=== PATIENT | female | born 1980 | race Caucasian/White ===

== ENCOUNTER 2020-04-22 09:31 | Outpatient (CLI) | payer OTHER, SELFPAY ==
--- NOTE | ~2020-04-22 | XR_ITS ---
EXAMINATION: XR foot RT min 3V DATE: 04/22/2020 09:44 INDICATION: Pain at the arch of the right foot. TECHNIQUE: 4 views of right foot were obtained. COMPARISON: None. FINDINGS: Bone alignment is normal. No fracture. There is mild osteoarthritis of first metatarsophala ngeal joint and some of the midfoot joints. There are enthesophytes at the posterior and plantar aspe cts of calcaneal tuberosity. IMPRESSION: 1. Mild polyarticular osteoarthritis. Reviewed, dictated and finalized at location A.
== END 2020-04-22 09:32 | disposition home or self-care (01) ==
PROVIDERS: PCP Internal Medicine; Visit Provider Clinical Nurse Specialist
DX: M79.673 Pain in unspecified foot (principal); M19.071 Primary osteoarthritis, right ankle and foot
CPT/HCPCS: 73630

== ENCOUNTER 2020-09-09 15:54 | Outpatient (CLI) | payer OTHER, SELFPAY ==
--- NOTE | ~2020-09-09 | US_ITS ---
EXAMINATION: US venous doppler [facility] DATE: 09/09/2020 16:43 INDICATION: Left lower limb swelling. TECHNIQUE: Grayscale ultrasound images without and with compression and Doppler ultrasound images of the left lower extremity veins were obtained. COMPARISON: None. FINDINGS: The visualized portions of left common femoral vein, profunda (deep) femoral vein, femoral vein, popl iteal vein, posterior tibial veins, and greater saphenous vein outflow are patent. IMPRESSION: 1. No deep venous thrombosis. Reviewed, dictated and finalized at location A.
== END 2020-09-09 15:55 | disposition home or self-care (01) ==
PROVIDERS: PCP Internal Medicine; Visit Provider Nurse Practitioner
DX: M79.89 Other specified soft tissue disorders (principal)
CPT/HCPCS: 93971

== ENCOUNTER 2020-10-30 10:03 | Outpatient (CLI) | payer OTHER, SELFPAY ==
--- NOTE | ~2020-10-30 | XR_ITS ---
XR knee RT 3V DATE: 10/30/2020 10:28 INDICATION: Right knee pain. No known injury. TECHNIQUE: 3 views COMPARISON: None FINDINGS: There is severe tricompartment osteoarthritis, involving particularly the medial and patell ofemoral compartments, with virtual obliteration of medial compartment joint space. There is prominen t periarticular spurring at all 3 compartments. There is mild lateral subluxation at the femoral tibi al joint. No fracture, dislocation, periosteal reaction or bone destruction, radiopaque intra-articular loose b gayatri or chondrocalcinosis is detected. IMPRESSION: Severe tricompartment osteoarthritis Reviewed, dictated and finalized at location B. PERSON
== END 2020-10-30 10:04 | disposition home or self-care (01) ==
PROVIDERS: PCP Internal Medicine; Visit Provider Nurse Practitioner
DX: M17.11 Unilateral primary osteoarthritis, right knee (principal)
CPT/HCPCS: 73562

== ENCOUNTER 2021-02-23 08:27 | Outpatient (CLI) | payer OTHER, SELFPAY ==
--- NOTE | ~2021-02-23 | US_ITS ---
EXAMINATION: US soft tissue abdomen EXAM DATE: 02/23/2021 09:04 INDICATION: R19.00 - Intra-abdominal and pelvic swelling, mass and lump, unspecified site. Patient no ticed for one month. Hernia on prior CT. TECHNIQUE: Multiple grayscale and Doppler images of the symptomatic abdominal soft tissue area of rodo harris were obtained (by a technologist who performed the scan) and subsequently reviewed. Correlation is made to CT abdomen 11/13/2018. FINDINGS: Prior CT from 2008 demonstrates a small umbilical fat-containing hernia. Scanning in the umbilicus de monstrates a defect in the abdominal wall measuring about 1.5 cm, with larger amount of intra-abdomin al fat herniating through, probably measuring about 3 cm in diameter. This may be have demonstrated m ild increase in size compared to CT scan in 2019, but this is not a direct comparison. IMPRESSION: Small to moderate-sized umbilical fat-containing hernia. Reviewed, dictated and finalized at location A.
[2021-02-23 09:20] LABS: Basophils Percent Auto 0.4 % (0.2-1.2); Eosinophils Absolute Auto 0.3 K/mm3 (0-0.3); Eosinophils Percent Auto 2.6 % (0-4.4); Hematocrit 39.9 % (37.0-47.0); Hemoglobin 12.8 g/dL (12.0-15.0); Immature Granulocyte Absolute 0.05 K/mm3 (0.00-0.031); Immature Granulocyte Percent A 0.5 % (0-0.5); Lymphocytes Absolute Auto 2.78 K/mm3 (0.9-3.2); Lymphocytes Percent Auto 25.9 % (18.3-44.2); Mean Corpuscular HGB Conc 32.1 g/dl (32-36); Mean Corpuscular Hemoglobin 29.6 pg (26-34); Mean Corpuscular Volume 92.4 fl (80-100); Mean Platelet Volume 12.2 fl (7.4-10.4); Monocytes Absolute Auto 0.6 K/mm3 (0.1-0.6); Monocytes Percent Auto 5.7 % (2.6-8.5); Neutrophils Percent Auto 64.9 % (45.5-73.1); Platelet Count Result 248 k/mm3 (150-375); Red Blood Count 4.32 M/mm3 (4.2-5.4); Red Cell Distribution Width 13.4 % (11.5-14.5); White Blood Count 10.7 K/mm3 (4.5-10.0)
[2021-02-23 09:29] LABS: Hemoglobin A1C 6.8 % (<5.7)
[2021-02-23 09:34] LABS: Alanine Aminotransferase 19 U/L (4-35); Albumin Level 4.4 g/dL (3.5-5.1); Alkaline Phosphatase 94 U/L (38-126); Anion Gap 4 mmol/L (8-16); Aspartate Amino Transferase 22 U/L (14-36); Bilirubin,Total 0.6 mg/dL (0.2-1.3); Blood Urea Nitrogen 14 mg/dL (7-17); Calcium 9.3 mg/dL (8.4-10.2); Carbon Dioxide 33 mmol/L (22-30); Chloride 103 mmol/L (98-107); Cholesterol 162 mg/dL (0-200); Estimated Glomerular Filt Rate > 60; Glucose 123 mg/dL (65-105); HDL Direct 53 mg/dL; Potassium 4.5 mmol/L (3.4-5.0); Sodium 140 mmol/L (137-145); Triglycerides 88 mg/dL (<150)
[2021-02-23 09:45] LABS: LDL Cholesterol Direct 86 mg/dL
[2021-02-23 10:06] LABS: Vitamin D 25 Hydroxy 21.8 ng/mL
== END 2021-02-23 08:28 | disposition home or self-care (01) ==
LOC: ANHIMG 08:29
PROVIDERS: Nurse Practitioner; PCP Internal Medicine; Visit Provider Nurse Practitioner
DX: R41.3 Other amnesia (principal); E11.9 Type 2 diabetes mellitus without complications; R19.00 Intra-abdominal and pelvic swelling, mass and lump, unspecified site; K42.9 Umbilical hernia without obstruction or gangrene
CPT/HCPCS: 36415; 76705; 80053; 80061; 82306; 82607; 83036; 84443; 85025

== ENCOUNTER 2021-03-04 12:25 | Outpatient (RCR) | payer OTHER, SELFPAY ==
[2021-03-04 12:39] VITALS: BMI 75.7
[2021-03-04 12:42] VITALS: BMI 75.7
== END 2021-05-26 14:56 | disposition home or self-care (01) ==
LOC: ANHDMC 12:25
PROVIDERS: PCP Internal Medicine; Referring Provider Nurse Practitioner; Visit Provider Nurse Practitioner
DX: E11.9 Type 2 diabetes mellitus without complications (principal); Z71.3 Dietary counseling and surveillance
CPT/HCPCS: 97802

== ENCOUNTER 2021-03-10 13:14 | Outpatient (CLI) | payer OTHER, SELFPAY ==
--- NOTE | 2021-03-10 13:47 | ECHO_ITS ---
Patient Info Name: Jolene Garcia Age: 40 years : 1980 Gender: Female Ht: 62 in Wt: 414 lbs BSA: 3.01 m2 HR: 81 bpm BP: 148 / 99 mmHg Heart Rhythm: Sinus Rhythm Technical Quality: Good Exam Date: 03/10/2021 1:56 PM Exam Location: [facility] Patient Status: Outpatient Admit Date: 03/10/2021 Staff Ordering Physician: Monse Sanchez NP Equipment Maintenance Superintendent: Yani Martin RDCS Attending Provider: Monse Sanchez NP Referring Physician: Laura FUENTES; Exam Type: CA echo doppler color flow Study Info Indications R60.9 - Edema, unspecified Complete two-dimensional, color flow and Doppler transthoracic echocardiogram is performed. Summary 1. Complete two-dimensional, color flow and Doppler transthoracic echocardiogram is performed. 2. Left ventricular systolic function is normal, estimated at 65-70%. 3. There is mildly increased left ventricular wall thickness. 4. The left ventricular diastolic function is normal. 5. Right atrial chamber dimension is mildly enlarged. 6. There is trace tricuspid valve regurgitation. 7. Mild pulmonary hypertension, estimated pulmonary arterial systolic pressure is 41 mmHg. 8. Normal inferior vena cava with >50% collapse upon inspiration consistent with normal right atrial pressure, 5 mmHg. Left Ventricle Left ventricular chamber dimension is normal. Left ventricular systolic function is normal, estimated at 65-70%. There is mildly increased left ventricular wall thickness. The left ventricular diastolic function is normal. Right Ventricle Right ventricular chamber dimension is normal. Right ventricular systolic function is normal. Left Atria Left atrial chamber dimension is normal. Right Atria Right atrial chamber dimension is mildly enlarged. Aortic Valve The aortic valve is not well visualized. There is no aortic valve stenosis. There is no aortic valve regurgitation. Pulmonic Valve The pulmonic valve is not well visualized. Mitral Valve The mitral valve has normal leaflets. There is trace mitral valve regurgitation. Tricuspid Valve The tricuspid valve leaflets are normal. There is trace tricuspid valve regurgitation. Mild pulmonary hypertension, estimated pulmonary arterial systolic pressure is 41 mmHg. Pericardium/Pleural The pericardium appears normal. There is trivial pericardial effusion. Inferior Vena Cava Normal inferior vena cava with >50% collapse upon inspiration consistent with normal right atrial pressure, 5 mmHg. Aorta The aortic root size at the sinus of Valsalva is normal. Left Ventricular Outflow Tract Name Value Normal LVOT 2D LVOT Diameter 2.0 cm LVOT Doppler LVOT Peak Gradient 8 mmHg LVOT Mean Gradient 5 mmHg LVOT VTI 28 cm LVOT VTI/AV VTI Ratio 0.8 LVOT Stroke Volume 86 ml LVOT CO 20.7 l/min LVOT CI 6.9 l/min/m2 Pulmonic Valve
== END 2021-03-10 13:15 | disposition home or self-care (01) ==
LOC: ANHCARD 13:15
PROVIDERS: PCP Internal Medicine; Visit Provider Nurse Practitioner
DX: R60.9 Edema, unspecified (principal)
CPT/HCPCS: 93306

== ENCOUNTER → 2021-03-26 01:06 | Outpatient (CLI) | payer OTHER, SELFPAY ==
[2021-03-26 19:36] LABS: SARS-CoV-2 RNA PCR Negative
== END ==
PROVIDERS: PCP Internal Medicine; Visit Provider Surgery
DX: Z20.822 Contact with and (suspected) exposure to COVID-19 (principal)
CPT/HCPCS: C9803; U0003; U0005

== ENCOUNTER 2021-03-26 08:43 | Outpatient (CLI) | payer OTHER, SELFPAY ==
--- NOTE | 2021-03-26 10:30 | ECG_ITS ---
Measurements Intervals [place] Rate: 78 P: 44 WI: 185 QRS: 31 QRSD: 100 T: -7 QT: 392 QTc: 447 Interpretive Statements SINUS RHYTHM NONSPECIFIC T-WAVE ABNORMALITY- INF/LAT LEADS BASELINE ARTIFACT- II, III, AVR, AVF BORDERLINE ECG Electronically Signed On 03-26-2021 13:54:20 CDT by Ismael Valentin D.O.
== END 2021-03-26 08:44 | disposition home or self-care (01) ==
LOC: ANHSURGERY 08:46
PROVIDERS: PCP Internal Medicine; Visit Provider Surgery
DX: K42.0 Umbilical hernia with obstruction, without gangrene (principal); E11.9 Type 2 diabetes mellitus without complications; Z01.818 Encounter for other preprocedural examination; R94.31 Abnormal electrocardiogram [ECG] [EKG]
CPT/HCPCS: 36415; 86850; 86900; 86901; 93005; C9803; U0003; U0005

== ENCOUNTER 2021-03-29 02:18 | Day surgery (SDC) | payer OTHER, SELFPAY ==
[2021-03-19 08:33] VITALS: BMI 57.6
[2021-03-29] VITALS (13 sets, daily range): BP systolic 139–167; BP diastolic 74–99; PULSE 69–90; RESP 10–24; TEMP 36.2–36.9; O2SAT 93–100
--- NOTE | 2021-03-29 06:40 | WPDANESEPPF ---
Anes - Initial Pre Proc Eval Procedure: Operation Date: 03/29/21 07:30 Proposed Procedures p Robotic Assisted Laparoscopic Incarcerated Umbilical Hernia Repair with Mesh - Lauren Carter MD Date/Time: 03/29/21 06:40 Surgeon: Lauren Carter MD Pre Op Diagnosis: incarcerated umbilical hernia Patient Data Age: 40 Gender: F Height: 1.57 m Weight: 143 kg Allergies Allergy/AdvReac Type Severity Reaction Status Date / Time latex Allergy Unknown Rash Verified 03/29/21 06:07 metformin Allergy Unknown Rash Verified 03/29/21 06:07 simvastatin Allergy Unknown Cramping Verified 03/29/21 06:07 of the Muscles Home Medications Medication Instructions Recorded Confirmed Type aspirin 81 mg tablet,delayed 81 mg PO DAILY 09/26/19 03/19/21 History release blood sugar diagnostic #10 each 09/26/19 03/19/21 History blood-glucose meter #1 each 09/26/19 03/19/21 History citalopram 20 mg tablet 20 mg PO DAILY 09/26/19 03/19/21 History lancets #50 each 09/26/19 03/19/21 History trazodone 150 mg tablet 150 mg PO HS tablet 09/26/19 03/19/21 History ziprasidone HCl 80 mg capsule 80 mg PO HS 09/26/19 03/19/21 History gabapentin 100 mg capsule 100 mg PO BID #180 cap 10/13/20 03/19/21 Rx glipizide 5 mg tablet 5 mg PO DAILY #90 tablet 02/01/21 03/19/21 Rx lisinopril 5 mg tablet 5 mg PO DAILY #90 tablet 02/24/21 03/19/21 Rx multivitamin 1 tablet PO DAILY 03/05/21 03/19/21 History Patient hx anesthesia problems: none Family hx anesthesia problems: none PMFSH Past Medical History Medical History Anxiety Arthritis Asthma Bipolar 1 disorder Cellulitis Cervicalgia Chronic headaches Chronic midline low back pain without sciatica Chronic pain of right knee Depression Diabetes Dizziness Excessive hunger Excessive thirst Heartburn Herpes Light headedness Memory loss Migraine KOBI (obstructive sleep apnea) Osteoporosis Polycystic ovarian syndrome Right wrist pain Sleep disorder SOB (shortness of breath) Type 2 diabetes mellitus Wears glasses Weight gain Surgical History Surgical History H/O tubal ligation BL History of placement of ear tubes Family History Family History Mother Depression Hypertension Sibling Breast cancer Grandparent Lung cancer Other Arthritis Asthma Diabetes mellitus Neuropathy Social History Social History Smoking packs per day: 1 Smoking cigarettes per day: 20.0 Years smoked: 2 Smoking pack-years: 2.00 Smoking status: Former smoker Tobacco type: cigarettes Smoking end date: 01/31/18 Alcohol intake: never Substance use: never Substance use type: does not use Living arrangements: with family Additional occupation/education comments: Disabled Spiritual care concerns: No Anes - Eval Final PreProcedure Day of Procedure 03/29/21 06:40 Patient weight: super morbidly obese Heart: regular rate and rhythm Lungs: clear to auscultation and normal air movement Airway: Mallampati scale class II Neurological: alert and oriented Last oral intake: >/= 8 hours ASA classification: III Emergent: no Anesthetic plan: proceed Anesthesia type and monitoring: general ETT and standard monitoring Informed Consent: The patient's anesthetic plan and its attendant risks and benefits were discussed with the patient/family/POA. Questions were solicited and answers provided to the satisfaction of the patient/family/POA.
[2021-03-29] MEDS: LACTATED RINGERS 1,000 ML 30 ML IV CONT ×2 (06:50→09:29)
[2021-03-29] MEDS: ACETAMINOPHEN 500 MG TABLET 1000 MG PO (06:54)
[2021-03-29] MEDS: KETOROLAC 15 MG/ML VIAL (*BKC) IV PUSH (06:55)
[2021-03-29 07:01] LABS: Glucose Point of Care 145 (65-105)
--- NOTE | 2021-03-29 07:26 | WPDHPUPDATE1 ---
History and Physical Update Update Date/Time: 03/29/21 07:26 History and Physical has been reviewed, including an updated exam of the patient. There are NO changes in the patient's condition. Risks, benefits, and alternatives have been discussed and questions answered. Patient agrees to proceed with procedure. Plan for robotic assisted repair with mesh.
[2021-03-29] MEDS: BUPIVACAINE/EPINEPHRINE 0.5% 30 ML VIAL INFILTRATE (07:33)
[2021-03-29] MEDS: ceFAZolin 3 GM/D5W 100 ML 100 ML IVPB (07:33)
[2021-03-29] MEDS: ENOXAPARIN 40 MG/0.4 ML SYRINGE SUB-Q (08:09)
--- NOTE | 2021-03-29 08:32 | SUR.OPER ---
DOCTOR HAMLIN AWARE AND ASSESSED LEFT LOWER LEG IN PRE OP/NO SCD TO FIT LEFT LOWER LEG. LEFT LOWER LEG DOUBLE THE SIZE OF RIGHT, SKIN TAUGHT,PEDAL PULSE +1. RIGHT LOWER LEG ALSO WITH TAUGHT SKIN, LOWER TINT PINKNESS,PEDAL PULSE +1. BILATERL LOWER LEGS WARM TO TOUCH. DR HAMLIN STATED PATIENT SAID THIS IS HER NORMAL. DR HAMLIN NOTIFIED ON ARRIVAL TO OR THAT NO SCD'S TO FIT/ORDER RECEIVED FOR LOVENOX 40MG SQ ONE TIME DOSE NOW. SEE MAR.
--- NOTE | 2021-03-29 08:49 | SUR.OPER ---
UMBILICAL MESH SYMBOTEX 1510, EXP 2025-10-12, LOT [id number]
--- NOTE | 2021-03-29 09:32 | SUR.OPER ---
POST OP ASSESSMENT OF LOWER LEGS UNCHANGED/AND INCLUDED IN REPORT TO HABITAT CONSERVATION PLANNERSTEPHENIE VASQUEZ.
--- NOTE | 2021-03-29 09:39 | P.OP_ITS ---
Procedure Note - Detailed Date of procedure: 03/29/21 Pre-op diagnosis: incarcerated umbilical hernia incarcerated periumbilical ventral hernia Post-op diagnosis: same Procedure performed: robotic assisted repair of incarcerated periumbilical ventral hernia with 15 x 10 cm symbotex mesh in underlay position Description of procedure: The patient was taken the operating room placed in the supine position. After adequate induction of general anesthesia, the patient was prepped and draped in normal sterile fashion. A time-out was then done to verify the patient's identity as well as the procedure being performed. I began by making a 5 mm incision in the left upper quadrant. Through this, a Veress needle was placed into the peritoneal cavity and CO2 gas was insufflated. After adequate pneumoperitoneum was achieved, a 5 mm trocar was placed through this incision. I then placed the laparoscope through this trocar site and under direct visualization I placed a 8 mm port in the left mid abdomen as well as an additional 8 mm port in the left lower abdomen. I then moved the camera to the lower port and replaced the 5 mm port with a 12 mm airport. The robot was then docked to the 3 port sites. I then went to the robotic console. I began by identifying the hernia. A moderate-sized incarcerated hernia was noted in the periumbilical region. Using graspers, I was able to reduce this hernia. The he rnia was noted to just contain preperitoneal fat and omentum. Once reduced, I also reduced and dissected out the hernia sac. I then closed the approximately 3 cm defect with 0 strata fix suture. I then placed a 15 x 10 cm symbotex mesh into the abdominal cavity. The Vicryl stitch was placed in the middle of the mesh and brought up centering the mesh over the defect. Once this was done, I used 2 0 V lock suture x 2 to circumferentially suture the mesh to the abdominal. Once the mesh was completely sutured in, I was happy with our tension-free repair. The mesh was noted to have good overlap of the defect. At this point, the robot was undocked and all ports were removed. I then closed the 12 mm port site with an 0 Vicryl jlhmyy-do-gebal suture at the fascial level. All port sites were then closed with 4 O Monocryl subcuticular suture. The patient tolerated the procedure well, is extubated in the operating room postoperative, OB transferred to the recovery room in stable condition. Anesthesia: GETA Surgeon: Lauren Carter MD Estimated blood loss (mL): 20 Drains: No Packing: No Pathology: none sent Complications: No immediate complications Condition: stable Disposition: PACU Findings: incarcerated periumbilical ventral hernia containing fat and omentum
[2021-03-29] MEDS: fentaNYL CITRATE INJ (*CRX) 100 MCG/2 ML VIAL 25 MCG IV PUSH ×4 (09:54→10:09)
--- NOTE | 2021-03-29 09:57 | SUR.PHASEI ---
Patient's left leg is larger than her right and warm to the touch. Lovenox was given in the operating room. Bilateral pedal pulses are a 1+.
--- NOTE | 2021-03-29 09:59 | SUR.PHASEI ---
O2 was removed at 0957.
[2021-03-29] MEDS: HYDROmorphone HCL INJ (*CRX) 1 MG/ML SYR 0.5 MG IV PUSH ×3 (10:15→10:31)
[2021-03-29] MEDS: oxyCODONE HCL (*CRX) 5 MG TAB IR PO (11:16)
[2021-03-30 07:15] LABS: Glucose Point of Care 145 (65-105)
== END 2021-03-29 12:45 | disposition home or self-care (01) ==
PROVIDERS: PCP Internal Medicine; Visit Provider Surgery
PROC: (CPT 49653; principal; 2021-03-29 07:30)
DX: K43.6 Other and unspecified ventral hernia with obstruction, without gangrene (principal); E11.9 Type 2 diabetes mellitus without complications; E28.2 Polycystic ovarian syndrome; F31.9 Bipolar disorder, unspecified; F41.9 Anxiety disorder, unspecified; G47.33 Obstructive sleep apnea (adult) (pediatric); Z87.891 Personal history of nicotine dependence; E66.01 Morbid (severe) obesity due to excess calories; Z68.45 Body mass index [BMI] 70 or greater, adult; Z79.84 Long term (current) use of oral hypoglycemic drugs; Z79.82 Long term (current) use of aspirin
CPT/HCPCS: 49653; S2900; 82948; A9270; C1781; J0330; J0690; J1100; J1170; J1650; J1885; J2250; J2405; J2704; J3010; J7030; J7120

== ENCOUNTER 2021-09-09 09:33 | Emergency (ER) | payer OTHER, SELFPAY ==
--- NOTE | ~2021-09-09 | XR_ITS ---
EXAMINATION: XR chest 2V DATE: 09/09/2021 10:31 INDICATION: Cough TECHNIQUE: PA and lateral views of the chest are obtained. COMPARISON: 05/18/2017 FINDINGS: The lungs are free of acute opacities. There is no pleural effusion or pneumothorax. The ca rdiomediastinal silhouette is normal. There is moderate thoracic spondylosis. IMPRESSION: 1. No acute cardiopulmonary abnormality. Reviewed, dictated and finalized at location A.
[2021-09-09 09:40] VITALS: BP 130/77; PULSE 94; RESP 16; TEMP 36.7; O2SAT 99
--- NOTE | 2021-09-09 11:25 | ED.GENADULT ---
HPI - General Adult General Chief complaint: Upper Respiratory Infection Stated complaint: COUGH, URI [id number] Time Seen by Provider: 09/09/21 11:11 Source: patient Mode of arrival: ambulatory Limitations: no limitations History of Present Illness HPI narrative: Patient 41-year-old female with history of asthma and sleep apnea who presents with 1 weeks of cold-like symptoms. Patient reports cough, congestion. She reports that she was seen at the urgent care when her symptoms first started and tested for Covid and the test was negative. Patient reports that sometimes she coughs hard and it causes her bladder to leak for her to spit up. She denies any abdominal pain, chest pain or shortness of breath. Patient denies any wheezing or having to use her rescue inhaler more frequently. Patient was prescribed cough syrup with codeine at the urgent care however she states she still has some coughing and soreness of her ribs from coughing. Patient denies any fevers, chills, shortness of breath, inability to eat or drink. Related Data Home Medications Medication Instructions Recorded Confirmed aspirin 81 mg tablet,delayed 81 mg PO DAILY 09/26/19 08/02/21 release blood sugar diagnostic #10 each 09/26/19 08/02/21 blood-glucose meter #1 each 09/26/19 08/02/21 citalopram 20 mg tablet 20 mg PO DAILY 09/26/19 08/02/21 lancets #50 each 09/26/19 08/02/21 trazodone 150 mg tablet 150 mg PO HS tablet 09/26/19 08/02/21 ziprasidone HCl 80 mg capsule 80 mg PO HS 09/26/19 08/02/21 multivitamin 1 tablet PO DAILY 03/05/21 08/02/21 Allergies Allergy/AdvReac Type Severity Reaction Status Date / Time latex Allergy Unknown Rash Verified 09/09/21 11:23 metformin Allergy Unknown Rash Verified 09/09/21 11:23 simvastatin Allergy Unknown Cramping Verified 09/09/21 11:23 of the Muscles Review of Systems Review of Systems: CONSTITUTIONAL: Denies fever, chills, or sweats. EYES: Denies visual changes, redness, or discharge. ENT: Reports rhinorrhea, congestion denies sore throat or otalgia. CARDIOVASCULAR: Denies chest pain, palpitations, or edema. RESPIRATORY: Reports cough denies dyspnea. GASTROINTESTINAL: Denies abdominal pain, nausea, vomiting, or diarrhea. GENITOURINARY: Denies dysuria or hematuria. SKIN: Denies rash or itching. MUSCULOSKELETAL: Denies back pain, joint pain, or myalgia. NEUROLOGIC: Denies headache, numbness, dizziness, or weakness. PSYCHIATRIC: Denies anxiety or depression. [facility] Past Medical History Medical History Anxiety Arthritis Asthma Bipolar 1 disorder Cellulitis Cervicalgia Chronic headaches Chronic midline low back pain without sciatica Chronic pain of right knee Depression Diabetes Dizziness Excessive hunger Excessive thirst Heartburn Herpes Light headedness Memory loss Migraine KOBI (obstructive sleep apnea) Osteoporosis Polycystic ovarian syndrome Right wrist pain Sleep disorder SOB (shortness of breath) Type 2 diabetes mellitus Wears glasses Weight gain Surgical History Surgical History H/O tubal ligation BL H/O ventral hernia repair 03/29/21 robotic assisted repair of incarcerated periumbilical ventral hernia with 15 x 10 cm symbotex mesh in underlay position History of placement of ear tubes Family History Family History Mother Depression Hypertension Sibling Breast cancer Grandparent Lung cancer Other Arthritis Asthma Diabetes mellitus Neuropathy Social History Social History Smoking packs per day: 1 Smoking cigarettes per day: 20.0 Years smoked: 2 Smoking pack-years: 2.00 Smoking status: Former smoker Tobacco type: cigarettes Smoking end date: 01/31/18 Alcohol intake: never Substance use: never Substance use type: does not use Additio
[2021-09-09 11:26] VITALS: PULSE 95; RESP 18; TEMP 36.9; O2SAT 97
[2021-09-09 11:27] VITALS: BP 120/98
[2021-09-09 11:28] VITALS: BP 119/75
== END 2021-09-09 11:45 | disposition home or self-care (01) ==
LOC: ANHED 11:33
PROVIDERS: Emergency Provider Emergency Medicine; PCP Internal Medicine
DX: B34.9 Viral infection, unspecified (principal); M19.90 Unspecified osteoarthritis, unspecified site; E11.9 Type 2 diabetes mellitus without complications; G47.33 Obstructive sleep apnea (adult) (pediatric); E28.2 Polycystic ovarian syndrome; G89.29 Other chronic pain; M54.50 Low back pain, unspecified; M25.561 Pain in right knee; F31.9 Bipolar disorder, unspecified; F41.9 Anxiety disorder, unspecified; Z87.891 Personal history of nicotine dependence; Z79.82 Long term (current) use of aspirin; Z79.84 Long term (current) use of oral hypoglycemic drugs
CPT/HCPCS: 71046; 99283

== ENCOUNTER 2021-10-14 10:32 | Outpatient (RCR) | payer OTHER, SELFPAY | END 2022-01-03 09:31 | disposition home or self-care (01) | LOC: ANHDMC 10:32 | PROVIDERS: PCP Internal Medicine; Referring Provider Nurse Practitioner; Visit Provider Nurse Practitioner | DX: E11.9 Type 2 diabetes mellitus without complications (principal) | CPT/HCPCS: 99199 ==

== ENCOUNTER 2021-12-03 08:07 | Outpatient (CLI) | payer OTHER, SELFPAY ==
--- NOTE | 2021-12-19 21:20 | WPDSLEEPSTUD ---
Sleep Study Date of Study: 12/03/21 <Teresa Ramos DO - Last Filed: 12/20/21 16:28> Ordering Provider: Teresa Ramos DO <Teresa Ramos DO - Last Filed: 12/20/21 16:28> Interpreting Physician: Teresa Ramos DO <Teresa Ramos DO - Last Filed: 12/20/21 16:28> Sleep Study Type: Split Polysomnogram <Teresa Ramos DO - Last Filed: 12/20/21 16:28> Height: 1.57 m <Teresa Ramos DO - Last Filed: 12/20/21 16:28> Weight: 173.272 kg <Teresa Ramos DO - Last Filed: 12/20/21 16:28> Body Mass Index: 69.8 <Teresa Ramos DO - Last Filed: 12/20/21 16:28> Neck Circumference (inches): 19.5 <Teresa Ramos DO - Last Filed: 12/20/21 16:28> [place]: 12 <Teresa Ramos DO - Last Filed: 12/20/21 16:28> Reason for Sleep Study Snoring, witnessed apneas, previously diagnosed KOBI on Split Study on 07/09/2019. Her echo on 03/10/2021 showed mild pulmonary hypertension. <Teresa Ramos DO - Last Filed: 12/20/21 16:28> Sleep History The patient is a 41 y/o female with anxiety, depression, bipolar disorder, Type 2 diabetes, migraine, mild pulmonary hypertension, morbid obesity, tobacco use disorder and previously diagnosed KOBI that had a Split Night study ordered by her PCP. The patient had a Split Study in June 2019 that showed an AHI of 11.3 in the diagnostic portion of the study. She was prescribed BPAP 15/11 cm H2O. The patient had an echocardiogram on 03/10/2021 that showed mild pulmonary hypertension, likely due to untreated KOBI. The patient did not fill out the sleep intake history. <Teresa Ramos DO - Last Filed: 12/20/21 16:28> [facility] Past Medical History Medical History: Medical History (Updated 12/19/21 @ 22:03 by Teresa Ramos DO) Anxiety Arthritis Asthma Bipolar 1 disorder Cellulitis Cervicalgia Chronic headaches Chronic midline low back pain without sciatica Chronic pain of right knee Depression Diabetes Dizziness Excessive hunger Excessive thirst Heartburn Herpes Hyperlipidemia LDL goal <70 Light headedness Memory loss Migraine KOBI (obstructive sleep apnea) Osteoporosis Polycystic ovarian syndrome Pulmonary hypertension Right wrist pain Sleep disorder SOB (shortness of breath) Type 2 diabetes mellitus Wears glasses Weight gain <Teresa Ramos DO - Last Filed: 12/20/21 16:28> Surgical History Surgical History: Surgical History H/O tubal ligation BL H/O ventral hernia repair 03/29/21 robotic assisted repair of incarcerated periumbilical ventral hernia with 15 x 10 cm symbotex mesh in underlay position History of placement of ear tubes <Teresa Ramos DO - Last Filed: 12/20/21 16:28> Family History Family History: Family History Mother Depression Hypertension Sibling Breast cancer Grandparent Lung cancer Other Arthritis Asthma Diabetes mellitus Neuropathy <Teresa Ramos DO - Last Filed: 12/20/21 16:28> Social History Social History: Social History Smoking packs per day: 1 Smoking cigarettes per day: 20.0 Years smoked: 2 Smoking pack-years: 2.00 Smoking status: Former smoker Tobacco type: cigarettes Smoking end date: 01/31/18 Alcohol intake: never Substance use: never Substance use type: does not use Additional occupation/education comments: Disabled Spiritual care concerns: No <Teresa Ramos DO - Last Filed: 12/20/21 16:28> Medications Home Medications: Home Medications Medication Instructions Recorded Confirmed Type aspirin 81 mg tablet,delayed 81 mg PO DAILY 09/26/19 12/14/21 History release blood sugar diagnostic #10 each 09/26/19 12/14/21 History blood-glucose met
[2021-12-20 16:28] VITALS: BMI 69.8
== END 2021-12-04 07:42 | disposition home or self-care (01) ==
LOC: ANHCSM 08:08
PROVIDERS: PCP Internal Medicine; Visit Provider Family Medicine
DX: G47.33 Obstructive sleep apnea (adult) (pediatric) (principal)
CPT/HCPCS: 95811

== ENCOUNTER 2021-12-22 14:30 | Outpatient (RCR) | payer OTHER, SELFPAY ==
--- NOTE | 2021-12-09 16:10 | PTOPEVAL ---
Thank you for referring Jolene Garcia to [facility].? The patient is scheduled to be seen for therapy?1 x/week for 8 weeks. Please review, sign, date and return this plan of care ASDIA. I agree with and certify that the following plan of care is medically necessary. Referring Physician Date Attending Provider: Teresa Ramos, DO Status: Active Diagnosis lumbago with left sciatica, chronic pain Onset 7 yrs Additional Evaluation Detail She works at a [employer] location. Subjective Information She has been having back pain Query Text:As Reported By Patient/ for 7 yrs due to DDD. 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 Reports the pain increased with sleeping. No HEP or walking program. She applies heat/ice. Diagnostic Tests MRI For This Problem Yes: 2018 that showed mild disc bulges from T12-L5 Pain Assessment Self Report Pain Assessment Lower Back Reported Pain Level 7 Pain Description Sharp,Stabbing Pain Frequency Chronic,Continuous Lowest Pain Intensity 2 Greatest Pain Intensity 8 Pain Aggravating Factors ADL's,Bending,Exercise/ Activity,Lifting,Prolonged Position,Sitting,Supine, Walking,Weight Bearing/ Standing Cervical and Lumbar ROM Lumbar ROM Lumbar Flexion Active Mid Phelps:Hands to: Lateral Flexion mid thigh motion:Active Hands to: Lumbar Comments pain with trunk flex Lower Extremity Range of Motion General Lower Extremity Range of Motion Gross Lower Extremity Range of Motion LE motion limited by excessive Comments tissue Cervical and Lumbar Muscle Testing Lumbar Strength Upper Abdominal Strength 3-Fair- Upper Back Extension 3 Fair Lower Back Extension 3 Fair Lower Extremity Muscle Strength Testing Hip Strength Bilateral Hip Flexion Strength 3- Fair - Hip Extension Strength 3 Fair Hip Abduction Strength 3 Fair Hip Strength Comments full range bridge Knee Strength Bilateral Knee Flexion Strength 4- Good - Knee Extension Strength 4+ Good + Knee Strength Comments hamstring tested seated Muscle Length Testing Muscle Length Testing Piriformis w/Hip Neutral (R) WFL,(L) WFL Right Straight Leg Raise Muscle Length ( 70 degrees) Left Straight Leg Raise Muscle Le
--- NOTE | 2021-12-15 14:23 | PCPTNOTE ---
Patient called & cancelled scheduled appointment this date due to no transportation.
--- NOTE | 2021-12-29 14:51 | PCPTNOTE ---
Patient called & cancelled scheduled appointment this date due to not feeling well.
--- NOTE | 2022-01-05 14:51 | PCPTNOTE ---
Patient did not show up for scheduled appointment this date. Called & had to leave a message.
--- NOTE | 2022-01-11 14:44 | PCPTNOTE ---
Patient did not show up for scheduled appointment this date. Called and left message regarding no show visit. Informed her will DC chart by end of week if she does not call to reschedule.
--- NOTE | 2022-01-17 12:54 | PCPTNOTE ---
Admitting Provider: Attending Provider: Teresa Ramos DO Patient:Jolene Garcia Date of :1980 Physical Therapy Discharge Summary Patient has not returned for any further treatments since 12/22/2021, therefore she will be discharged at this time. Patient?s initial visit was on 12/09/2021 and she had a total of 2 visits with 4 no show/canceled visits. The goals have been not met due to limited attended visits. Thank you for referring this patient to [facility]. Please review, sign, date and return this discharge summary SADIA. I have been updated about the patient's current status and I agree with discharge from the above service at this time. Referring Physician Date
== END 2022-01-17 15:25 | disposition home or self-care (01) ==
LOC: ANHPT 14:30
PROVIDERS: PCP Internal Medicine; Visit Provider Family Medicine
DX: M54.42 Lumbago with sciatica, left side (principal); G89.29 Other chronic pain
CPT/HCPCS: 97110; 97162; 97530

== ENCOUNTER 2022-01-18 07:29 | Outpatient (CLI) | payer OTHER, SELFPAY ==
--- NOTE | ~2022-01-18 | MM_ITS ---
EXAMINATION: MM screening bj BI w jensen HISTORY: Screening TECHNIQUE: Craniocaudal and mediolateral oblique 3-D tomosynthesis images were obtained and synthetic 2-D images were generated. CAD analysis was submitted and interpreted. COMPARISON: No prior mammogram is available for comparison at this institution. BREAST PARENCHYMAL COMPOSITION: The breasts are almost entirely fatty. FINDINGS: There is no evidence of suspicious mass, calcification, or architectural distortion to sugg est malignancy in either breast. There has been no suspicious interval change. IMPRESSION: 1. No mammographic evidence of malignancy. 2. Recommend routine screening mammography in one year. BI-RADS Category 1: Negative Reviewed, dictated and finalized at location A. ER OPERATOR
== END 2022-01-18 07:30 | disposition home or self-care (01) ==
LOC: ANHIMG 07:30
PROVIDERS: PCP Internal Medicine; Visit Provider Nurse Practitioner Obstetrics & Gynecology
DX: Z12.31 Encounter for screening mammogram for malignant neoplasm of breast (principal)
CPT/HCPCS: 77063; 77067

== ENCOUNTER 2022-01-20 12:33 | Outpatient (CLI) | payer OTHER, SELFPAY ==
--- NOTE | ~2022-01-20 | US_ITS ---
EXAMINATION: US venous doppler [facility] DATE: 01/20/2022 13:06 INDICATION: Left lower limb pain and swelling. TECHNIQUE: Grayscale ultrasound images without and with compression and Doppler ultrasound images of the left lower extremity veins were obtained. COMPARISON: Ultrasound 09/09/2020 FINDINGS: The visualized portions of left common femoral vein, profunda (deep) femoral vein, femoral vein, popl iteal vein, peroneal veins, posterior tibial veins, and greater saphenous vein outflow are patent. IMPRESSION: 1. No deep venous thrombosis. Reviewed, dictated and finalized at location A. KER AND SEWER
== END 2022-01-20 12:34 | disposition home or self-care (01) ==
PROVIDERS: PCP Internal Medicine; Visit Provider Family Medicine
DX: M79.89 Other specified soft tissue disorders (principal); L53.9 Erythematous condition, unspecified
CPT/HCPCS: 93971

== ENCOUNTER 2022-07-23 11:16 | Emergency (ER) | payer OTHER, SELFPAY ==
--- NOTE | ~2022-07-23 | XR_ITS ---
XR knee LT 3V DATE: 07/23/2022 12:15 INDICATION: Fall. Left leg pain and swelling. TECHNIQUE: 3 views including cross table lateral COMPARISON: None FINDINGS: There is periarticular spurring at all 3 compartments and moderately severe narrowing at th e medial compartment. No fracture or dislocation or joint effusion. No periosteal reaction or bone destruction. IMPRESSION: Osteoarthritis Reviewed, dictated and finalized at location A. IMPRESSION: Osteoarthritis
--- NOTE | ~2022-07-23 | XR_ITS ---
XR hip LT min 2V DATE: 07/23/2022 12:15 INDICATION: Fall. Left leg pain, swelling. TECHNIQUE: AP and lateral views COMPARISON: None FINDINGS: IUD overlying pelvis. No fracture or dislocation, avascular necrosis or bone destruction of the left hip. The pubic symphysic and sacroiliac joints appear intact. Left hip joint space is intact. IMPRESSION: Negative left hip Reviewed, dictated and finalized at location A. IMPRESSION: Negative left hip
--- NOTE | 2022-07-23 11:19 | ED.LOWEXIN ---
HPI - Extremity Injury (Lower) General Chief Complaint: Extremity Injury, Lower Stated Complaint: L LEG/L ANKLE INJURY Time Seen by Provider: 07/23/22 11:32 Source: patient and RN notes reviewed Mode of arrival: ambulatory Limitations: no limitations History of Present Illness HPI Narrative: 41-year-old female presents with concern for left hip, knee, leg pain. She reports she fell yesterday causing pain in these areas. She reports pain worsens with weightbearing. She reports her lower leg is swollen. She denies ankle or foot pain. She reports she took Tylenol with no relief. She denies open skin, redness, warmth. She reports chronic intermittent bilateral lower leg swelling for which she has talked to her doctor about many times. MD complaint: leg injury Related Data Home Medications Medication Instructions Recorded Confirmed aspirin 81 mg tablet,delayed 81 mg PO DAILY 09/26/19 07/23/22 release (Adult Low Dose Aspirin) blood-glucose meter ([employer]IDxTouch #1 ea 09/26/19 07/23/22 UltraMini kit) citalopram 20 mg tablet (Celexa) 20 mg PO DAILY 09/26/19 07/23/22 trazodone 150 mg tablet 150 mg PO HS 09/26/19 07/23/22 ziprasidone HCl 80 mg capsule 80 mg PO HS 09/26/19 07/23/22 (Geodon) multivitamin 1 tablet PO DAILY 03/05/21 07/23/22 Allergies Allergy/AdvReac Type Severity Reaction Status Date / Time latex Allergy Unknown Rash Verified 07/23/22 11:28 metformin Allergy Unknown Rash Verified 07/23/22 11:28 simvastatin Allergy Unknown Cramping Verified 07/23/22 11:28 of the Muscles Review of Systems Review of Systems: CONSTITUTIONAL: Denies malaise, chills, sweats, or fever. SKIN: Denies rash or itching, open skin, laceration, abrasion, redness, warmth MUSCULOSKELETAL: Reports left hip, knee, leg pain and swelling NEUROLOGIC: Denies numbness, weakness All systems reviewed & are unremarkable except as noted in HPI and below PMFSH Past Medical History Medical History Anxiety Arthritis Asthma Bipolar 1 disorder Cellulitis Cervicalgia Chronic headaches Chronic midline low back pain without sciatica Chronic pain of right knee Depression Diabetes Dizziness Excessive hunger Excessive thirst Heartburn Herpes Hyperlipidemia LDL goal <70 Light headedness Memory loss Migraine KOBI (obstructive sleep apnea) Osteoporosis Polycystic ovarian syndrome Pulmonary hypertension Right wrist pain Sleep disorder SOB (shortness of breath) Type 2 diabetes mellitus Wears glasses Weight gain Surgical History Surgical History H/O tubal ligation BL H/O ventral hernia repair 03/29/21 robotic assisted repair of incarcerated periumbilical ventral hernia with 15 x 10 cm symbotex mesh in underlay position History of placement of ear tubes Family History Family History Mother Depression Hypertension Sibling Breast cancer Grandparent Lung cancer Other Arthritis Asthma Diabetes mellitus Neuropathy Social History Social History Smoking packs per day: 1 Smoking cigarettes per day: 20.0 Years smoked: 2 Smoking pack-years: 2.00 Smoking status: Former smoker Tobacco type: cigarettes Smoking end date: 01/31/18 Alcohol intake: never Substance use: never Substance use type: does not use Additional occupation/education comments: Disabled Spiritual care concerns: No Comments At time of signature, agree with nursing past medical, surgical, social and family history. There is no relevant family history pertinent to the presenting complaint Exam Narrative: GENERAL: Well-appearing, well-nourished, and in no acute distress. HEAD: Normocephalic EYES: PERRLA, sclera clear ENT: Nares clear. Mucous membranes moist. NECK: Supple. CHEST: No respiratory distress. Speaks in fu
[2022-07-23 12:38] VITALS: BP 147/78; PULSE 96; RESP 16; TEMP 37.1; O2SAT 100
== END 2022-07-23 12:41 | disposition home or self-care (01) ==
PROVIDERS: Emergency Provider Nurse Practitioner
DX: M17.12 Unilateral primary osteoarthritis, left knee (principal); M25.552 Pain in left hip; Z79.82 Long term (current) use of aspirin; F31.9 Bipolar disorder, unspecified; E11.9 Type 2 diabetes mellitus without complications; E78.5 Hyperlipidemia, unspecified; G47.33 Obstructive sleep apnea (adult) (pediatric); Z87.891 Personal history of nicotine dependence
CPT/HCPCS: 73502; 73562; 99213; 99214; G0463

== ENCOUNTER 2022-08-16 09:17 | Outpatient (CLI) | payer OTHER, SELFPAY ==
[2022-08-16 18:42] LABS: Cholesterol 162 mg/dL (0-200); HDL Direct 52 mg/dL; Triglycerides 53 mg/dL (<150)
[2022-08-16 18:46] LABS: Hemoglobin A1C 6.1 % (<5.7)
[2022-08-16 18:53] LABS: LDL Cholesterol Direct 69 mg/dL
== END 2022-08-16 09:18 | disposition home or self-care (01) ==
LOC: ANHGOSHLAB 09:25
PROVIDERS: PCP Internal Medicine; Visit Provider Nurse Practitioner
DX: E11.9 Type 2 diabetes mellitus without complications (principal)
CPT/HCPCS: 36415; 80061; 83036

== ENCOUNTER 2022-09-02 09:20 | Outpatient (CLI) | payer OTHER, SELFPAY ==
[2022-09-02 20:16] LABS: Add Urine Microscopic? YES; Appearance Urine Turbid (Clear); Bilirubin Urine Negative (Negative); Blood Urine Negative (Negative); Color Urine Amber (Yellow); Glucose Urine UA Negative (Negative); Ketones Urine Negative (Negative); Leukocyte Esterase Ur Negative LEU/UL (NEGATIVE); Mucus Urine Few /lpf; Nitrate Urine Negative (Negative); Protein Urine Negative (Negative); Specific Grav Ur 1.029 (1.001-1.035); Squamous Epithelial Cell Urine Many /hpf (Few)
== END 2022-09-02 09:21 | disposition home or self-care (01) ==
LOC: ANHGOSHLAB 09:22
PROVIDERS: PCP Family Medicine; Visit Provider Family Medicine
DX: R33.9 Retention of urine, unspecified (principal); M54.42 Lumbago with sciatica, left side; G89.29 Other chronic pain
CPT/HCPCS: 81001

== ENCOUNTER → 2022-09-02 09:30 | Outpatient (CLI) | payer OTHER, SELFPAY ==
--- NOTE | ~2022-09-02 | XR_ITS ---
EXAMINATION: XR lumbar spine min 4V DATE: 09/02/2022 09:49 INDICATION: Low back pain TECHNIQUE: Anteroposterior, lateral, and bilateral oblique views of the lumbar spine, and cone-down l ateral view of the lumbosacral junction were obtained. COMPARISON: None. FINDINGS: There is no fracture, dislocation, or subluxation. The vertebral body heights and are lori l. There is moderate loss of intervertebral disc space height at L3-4, unchanged. Small degenerative osteophytes project from the anterior endplates of multiple vertebral bodies. There is mild facet ost eoarthritis of the lower lumbar spine. An IUD is noted. The bowel gas pattern is normal. IMPRESSION: 1. Mild to moderate lumbar spondylosis without acute findings or significant interval change. Reviewed, dictated and finalized at location B. IMPRESSION: 1. Mild to moderate lumbar spondylosis without acute findings or significant in terval change.
== END ==
PROVIDERS: PCP Family Medicine; Visit Provider Family Medicine
DX: M54.42 Lumbago with sciatica, left side (principal); G89.29 Other chronic pain; M47.896 Other spondylosis, lumbar region
CPT/HCPCS: 72110

== ENCOUNTER 2022-09-21 12:30 | Outpatient (RCR) | payer OTHER, SELFPAY ==
--- NOTE | 2022-09-13 13:34 | PTOPEVAL1 ---
Assessment and note entered by Delmis Dukes DPT Evaluation Information Assessment Status Evaluation Reported Pain Level Pain Score 8: Self Report Additional Pain Score Comments Pt reports diagnosis of DDD and LBP for several years. Has recently worsened. Highest pain 9/10 and 3/10 recently. Pain is central, no radiation. Pain increases with prolonged sitting, standing or laying. Some with walking but not as bad. Pain with bending or lifting. Pt works at [employer], reports a recent fall unrelated to back pain. Reports falling 1-2 times a day. Assessment PT Clinical Summary The patient is presenting to skilled therapy with a history of chronic LBP that has worsened. She presents with decreased lower extremity and core strength, decreased and painful lumbar range of motion, and pain with palpation which are contributing to her pain and difficulty with prolonged sitting, standing, and laying as well as bending and lifting. She will benefit from skilled therapy to address her impairments and safely reduce pain and dysfunction. Plan of Care Interventions Electrical Stimulation,Hot Pack/Cold Pack,Manual Therapy,Neuro Re-education,Patient/Caregiver Education,Therapeutic Activities,Therapeutic Exercise,Self-Care/Home Management PT Services Indicated Yes Treatment Frequency and 2 times a week for 6 weeks Duration These treatments will address the objective and functional deficits as defined above. The patient will be advanced safely and appropriately in order for the patient to progress towards his/her prior level of function. Additional exercises will be introduced and as well as a comprehensive home exercise program upon discharge, if needed, ?to ensure carryover of functional gains achieved in the clinic. This treatment plan has been reviewed and agreement upon by the patient.
--- NOTE | 2022-09-27 14:47 | PCPTNOTE ---
Patient called to cancel due to illness.
--- NOTE | 2022-09-29 16:32 | PCPTNOTE ---
Patient called & cancelled scheduled appointment this date due to being sick
--- NOTE | 2022-10-04 13:44 | PCPTNOTE ---
Patient no showed to appointment. Called and left voicemail.
--- NOTE | 2022-10-07 13:04 | PCPTNOTE ---
Patient did not show up for scheduled appointment this date. Called and left voicemail reminding her of her next appointment on 10/11.
--- NOTE | 2022-10-11 13:42 | PCPTNOTE ---
Patient did not show this date. This is patient's third no show and two cancels prior to that. Patient will be discharged per noncompliance.
--- NOTE | 2022-10-17 12:33 | PTOPDC ---
Assessment and note entered by Delmis Dukes, DPT Evaluation Information Assessment Status Discharge - Pt Not Presen Assessment PT Clinical Summary The patient has no showed 3 visits of therapy and per policy will be discharged from therapy this date.
== END 2022-10-17 15:58 | disposition home or self-care (01) ==
LOC: ANHGOSHPT 12:30
PROVIDERS: PCP Family Medicine; Visit Provider Family Medicine
DX: M54.42 Lumbago with sciatica, left side (principal); G89.29 Other chronic pain
CPT/HCPCS: 97110; 97140; 97161; 99199

== ENCOUNTER 2022-12-27 15:01 | Outpatient (CLI) | payer OTHER, SELFPAY ==
--- NOTE | ~2022-12-27 | MR_ITS ---
EXAMINATION: MR lumbar spine wo con DATE: 12/27/2022 15:49 INDICATION: Chronic back pain. Bilateral sciatica. TECHNIQUE: Magnetic resonance imaging (MRI) of the lumbar spine was performed without intravenous con trast. Sequences included sagittal T2-weighted FSE, sagittal T2-weighted FS FSE, sagittal T1-weighted FSE, and axial T2-weighted FSE. COMPARISON: Lumbar spine MRI 04/10/2019 FINDINGS: Bone alignment is normal. There is mild chronic anterior wedging of T12 and L1 vertebral karen dies. There is a hemangioma in L3 vertebral body. There are Schmorl's nodes at most levels. There is mildly decreased disc height at L3-L4. The distal spinal cord signal intensity is normal. The conus m edullaris is at T12. The following disc levels are specifically discussed: L1-L2: The disc is bulging. There is mild bilateral facet joint osteoarthritis. There is no neural fo raminal stenosis. There is mild central canal stenosis. L2-L3: The disc does not extend beyond the endplate margin. There is mild right and moderate left fac et joint osteoarthritis. There is no neural foraminal stenosis. There is no central canal stenosis. L3-L4: The disc is bulging and has an annular fissure. There is mild bilateral facet joint osteoarthr itis. There is mild bilateral neural foraminal stenosis. There is mild central canal stenosis. L4-L5: The disc does not extend beyond the endplate margin. There is severe bilateral facet joint ost eoarthritis. There is no neural foraminal stenosis. There is no central canal stenosis. L5-S1: The disc does not extend beyond the endplate margin. There is moderate bilateral facet joint o steoarthritis. There is no neural foraminal stenosis. There is no central canal stenosis. IMPRESSION: 1. Mild lumbar spondylosis, stable from 04/10/2019. Reviewed, dictated and finalized at location A. 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
== END 2022-12-27 15:02 | disposition home or self-care (01) ==
LOC: ANHIMG 15:02
PROVIDERS: PCP Internal Medicine; Visit Provider Family Medicine
DX: M54.42 Lumbago with sciatica, left side (principal); G89.29 Other chronic pain; M47.896 Other spondylosis, lumbar region
CPT/HCPCS: 72148

== ENCOUNTER 2023-03-09 11:08 | Outpatient (CLI) | payer OTHER, SELFPAY ==
[2023-03-09 19:12] LABS: Alanine Aminotransferase 25 U/L (6-35); Albumin Level 4.3 g/dL (3.5-5.1); Alkaline Phosphatase 86 U/L (38-126); Anion Gap 3 mmol/L (8-16); Aspartate Amino Transferase 34 U/L (14-36); Blood Urea Nitrogen 13 mg/dL (7-17); Carbon Dioxide 34 mmol/L (22-30); Chloride 101 mmol/L (98-107); Estimated Glomerular Filt Rate > 60; Glucose 141 mg/dL (65-110); Potassium 4.3 mmol/L (3.4-5.0); Sodium 138 mmol/L (137-145)
[2023-03-09 19:44] LABS: Basophils Percent Auto 0.5 % (0.2-1.2); Creatinine Urine 203.2 mg/dL; Eosinophils Absolute Auto 0.1 K/mm3 (0-0.3); Eosinophils Percent Auto 1.4 % (0-4.4); Hematocrit 39.5 % (37.0-47.0); Hemoglobin 12.5 g/dL (12.0-15.0); Immature Granulocyte Absolute 0.05 K/mm3 (0.00-0.031); Immature Granulocyte Percent A 0.6 % (0-0.5); Lymphocytes Absolute Auto 2.09 K/mm3 (0.9-3.2); Lymphocytes Percent Auto 23.9 % (18.3-44.2); Mean Corpuscular HGB Conc 31.6 g/dl (32-36); Mean Corpuscular Hemoglobin 29.8 pg (26-34); Mean Platelet Volume 12.6 fl (7.4-10.4); Monocytes Absolute Auto 0.5 K/mm3 (0.1-0.6); Monocytes Percent Auto 5.8 % (2.6-8.5); Neutrophils Absolute Auto 5.9 K/mm3 (1.3-6.7); Neutrophils Percent Auto 67.8 % (45.5-73.1); Platelet Count Result 232 k/mm3 (150-375); White Blood Count 8.7 K/mm3 (4.5-10.0)
[2023-03-09 19:49] LABS: MALB Creatinine Ratio 9.7 mg/g (0-30); Microalbumin Urine Random 19.8 mg/L (0-16.7)
== END 2023-03-09 11:09 | disposition home or self-care (01) ==
LOC: ANHGOSHLAB 11:10
PROVIDERS: Family Medicine; Nurse Practitioner; PCP Internal Medicine; Visit Provider Internal Medicine
DX: E11.9 Type 2 diabetes mellitus without complications (principal)
CPT/HCPCS: 36415; 80053; 82043; 83036; 85025

== ENCOUNTER 2023-03-22 12:30 | Outpatient (RCR) | payer OTHER, SELFPAY ==
--- NOTE | 2023-01-31 15:32 | PTOPEVAL1 ---
Assessment and note entered by Ericka Marie, PT Evaluation Information Assessment Status Evaluation Diagnosis R and L LE lymphedema Onset 2-3 years Reported Pain Level Pain Score Self Report legs Additional Pain Score Comments pain range in past week: 3-9/10; pain in both legs--anterior leg, to ankles-shooting pains increases with standing; decrease with heat, sit/ rest; Assessment PT Clinical Summary Jolene has the diagnosis of R and L LE lymphedema. Her medical history includes: HTN, sleep apnea, asthma, diabetes, hernia repair surgery, polycystic ovarian syndrome, obesity. With the evaluation, she has decreased R and L knee flexion ROM, pain in legs, tissue changes in legs. Skilled PT services are indicated for lymphedema treatment : multilayer compression wraps, intermittent compression pump, leg exercises, education for home exercises, lymphedema leg care and compression garment for her to obtain. Plan of Care Interventions Intermittent Compression,Lymphedema Compression Pump ,Manual Lymph Drainage,Neuro Re-education,Patient/ Caregiver Education,Therapeutic Activities, Therapeutic Exercise,Other PT Services Indicated Yes Treatment Frequency and 0-3x/wk x 8 weeks, due to availability of Duration therapist, cannot begin treatment for 2 weeks. These treatments will address the objective and functional deficits as defined above. The patient will be advanced safely and appropriately in order for the patient to progress towards his/her prior level of function. Additional exercises will be introduced and as well as a comprehensive home exercise program upon discharge, if needed, ?to ensure carryover of functional gains achieved in the clinic. This treatment plan has been reviewed and agreement upon by the patient.
--- NOTE | 2023-03-24 08:06 | PCPTNOTE ---
Patient called & cancelled scheduled appointment this date due to having another appointment.
--- NOTE | 2023-03-27 14:19 | PCPTNOTE ---
Patient called & cancelled scheduled appointment this date due to getting a job and being unable to come in. She also cancelled all future appointments due to her new employment. Informed PT.
--- NOTE | 2023-03-29 09:41 | PTOPDC ---
Assessment and note entered by Ericka Marie, PT Evaluation Information Assessment Status Discharge - Pt Not Presen Diagnosis R and L LE lymphedema Onset 2-3 years Assessment PT Clinical Summary Jolene has received a total of 17 PT sessions for R and L LE lymphedema. She called 03-27-23 and canceled all of her remaining PT appointments, due to getting a job and unable to attend therapy anymore. At the last PT measurement of her legs: R LE had increased by 20.5cm to 971.5 cm and her L LE had increased by 25.3 cm to 1021.1 cm. She had been given the info to order calf high, 20-30 mmHg compression garments, but had not received them yet. She has been educated on LE exercises, skin care, lymphedema precautions, elevation and use of compression to manage her condition. The goals were not addressed. Discharge PT services per pt request. Plan of Care PT Services Indicated No
== END 2023-03-30 10:34 | disposition home or self-care (01) ==
LOC: ANHPT 12:30
PROVIDERS: PCP Internal Medicine; Visit Provider Family Medicine
DX: I89.0 Lymphedema, not elsewhere classified (principal); E66.9 Obesity, unspecified
CPT/HCPCS: 29581; 97016; 97110; 97140; 97161

== ENCOUNTER 2023-04-14 09:48 | Outpatient (CLI) | payer OTHER, SELFPAY ==
--- NOTE | ~2023-04-14 | XR_ITS ---
Clinical Indication: Cough PA and lateral views of the chest: Comparison: 09/09/2021 Findings: The lungs are clear, without evidence of focal consolidation or pleural effusion. Cardiome diastinal silhouette is within normal limits. Bones and soft tissues are unremarkable. Impression: Normal chest. Reviewed, dictated and finalized at location . Impression: Normal chest.
== END 2023-04-14 09:49 | disposition home or self-care (01) ==
PROVIDERS: PCP Family Medicine; Visit Provider Nurse Practitioner
DX: R05.9 Cough, unspecified (principal); R06.02 Shortness of breath
CPT/HCPCS: 71046

== ENCOUNTER 2023-08-05 10:14 | Emergency (ER) | payer OTHER, SELFPAY ==
--- NOTE | 2023-08-05 10:18 | ED.BURNSMOKE ---
HPI - Burn/Smoke Inhalation General Chief complaint: Skin/Abscess/Foreign Body Stated complaint: Burn on Stomach Time Seen by Provider: 08/05/23 10:17 Source: patient Mode of arrival: ambulatory Limitations: no limitations History of Present Illness HPI Narrative: Jolene is a 42-year-old female patient presenting to the clinic today with complaints of a burn to her stomach times 1-2 days. She reports she was baking chicken and some of the chicken juice landed on her abdomen. States she had a shirt on at the time of the incident. No fever or chills. No drainage from the area Related Data Home Medications Medication Instructions Recorded Confirmed aspirin 81 mg tablet,delayed 81 mg PO DAILY 09/26/19 08/05/23 release (Adult Low Dose Aspirin) blood-glucose meter ([employer] #1 ea 09/26/19 04/13/23 UltraMini kit) citalopram 20 mg tablet (Celexa) 20 mg PO DAILY 09/26/19 08/05/23 trazodone 150 mg tablet 150 mg PO HS 09/26/19 08/05/23 ziprasidone HCl 80 mg capsule 80 mg PO HS 09/26/19 08/05/23 (Geodon) multivitamin 1 tablet PO DAILY 03/05/21 08/05/23 prazosin 1 mg capsule 1 mg PO QHS 09/01/22 08/05/23 Allergies Allergy/AdvReac Type Severity Reaction Status Date / Time latex Allergy Unknown Rash Verified 08/05/23 10:34 metformin Allergy Unknown Rash Verified 08/05/23 10:34 simvastatin Allergy Unknown Cramping Verified 08/05/23 10:34 of the Muscles Review of Systems Review of Systems: Pertinent positives per HPI. Patient denies any fever, chills, rash, headache, visual changes, dizziness, cough, runny nose, sore throat, shortness of breath, chest pain, palpitations, nausea, vomiting, diarrhea, constipation, abdominal pain, or any urinary issues. [facility] Past Medical History Medical History Anxiety Arthritis Asthma Bipolar 1 disorder Cellulitis Cervicalgia Chronic headaches Chronic midline low back pain without sciatica Chronic pain of right knee Depression Diabetes Dizziness Excessive hunger Excessive thirst Heartburn Herpes Hyperlipidemia LDL goal <70 Left knee DJD Light headedness Memory loss Migraine KOBI (obstructive sleep apnea) Osteoporosis Polycystic ovarian syndrome Pulmonary hypertension Right wrist pain Sleep disorder SOB (shortness of breath) Type 2 diabetes mellitus Wears glasses Weight gain Surgical History Surgical History H/O tubal ligation BL H/O ventral hernia repair 03/29/21 robotic assisted repair of incarcerated periumbilical ventral hernia with 15 x 10 cm symbotex mesh in underlay position History of placement of ear tubes Family History Family History Mother Depression Hypertension Sibling Breast cancer Grandparent Lung cancer Other Breast cancer Stage III Other Cancer Other Arthritis Asthma Diabetes mellitus Neuropathy Social History Social History Years smoked: 2 Smoking status: Former smoker Tobacco type: cigarettes Smoking end date: 01/31/18 Alcohol intake: never Substance use: never Substance use type: does not use Lack of Transportation: No Lack of Food: Never True Concerned About Future Housing: No Difficulty Paying Gas/Electric Bills: No Difficulty Paying for Meds: No Currently Unemployed: No Education: High School Diploma/GED Difficulty w/ Childcare or Family Care: No Living arrangements: with family Occupation/Education: unemployed Additional occupation/education comments: Disabled Spiritual care concerns: No Comments At the time of my signature, I reviewed and agree with the nursing past medical, surgical, social, and family history. There is no relevant family history pertinent to the patient complaint. Exam Narrative: General: Well-de
[2023-08-05 10:34] VITALS: BP 138/96; PULSE 77; RESP 16; TEMP 36.5; O2SAT 98
[2023-08-05 10:40] VITALS: BP 138/96; PULSE 77; RESP 16; TEMP 36.5; O2SAT 98
== END 2023-08-05 10:45 | disposition home or self-care (01) ==
PROVIDERS: Emergency Provider Nurse Practitioner Family; PCP Family Medicine
DX: T21.12XA Burn of first degree of abdominal wall, initial encounter (principal); X12.XXXA Contact with other hot fluids, initial encounter; Y93.G3 Activity, cooking and baking; Z87.891 Personal history of nicotine dependence; E11.9 Type 2 diabetes mellitus without complications; M17.12 Unilateral primary osteoarthritis, left knee; M81.0 Age-related osteoporosis without current pathological fracture; I27.20 Pulmonary hypertension, unspecified; F41.9 Anxiety disorder, unspecified; Z79.82 Long term (current) use of aspirin; F31.9 Bipolar disorder, unspecified
CPT/HCPCS: 99212; G0463

== ENCOUNTER 2023-12-13 15:37 | Outpatient (CLI) | payer OTHER, SELFPAY ==
--- NOTE | ~2023-12-13 | XR_ITS ---
XR chest 2V DATE: 12/13/2023 16:01 INDICATION: Cough for one month TECHNIQUE: PA and lateral views COMPARISON: 04/14/2023 2 view chest FINDINGS: Normal heart size. No hilar or mediastinal enlargement. No pulmonary infiltrate or consolid ation, pleural effusion or pulmonary vascular congestion or pneumothorax is detected. Included skelet al structures are unremarkable other than minimal degenerative spurring of the thoracic spine and adeline dence of lower cervical spine degenerative disc disease.. IMPRESSION: No active cardiopulmonary disease Reviewed, dictated and finalized at location B. 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
== END 2023-12-13 15:38 | disposition home or self-care (01) ==
PROVIDERS: PCP Internal Medicine; Visit Provider Nurse Practitioner
DX: R05.9 Cough, unspecified (principal)
CPT/HCPCS: 71046

== ENCOUNTER 2024-04-09 09:14 | Outpatient (CLI) | payer OTHER, SELFPAY ==
[2024-04-09 11:13] LABS: Basophils Percent Auto 0.3 % (0.2-1.2); Eosinophils Absolute Auto 0.2 K/mm3 (0-0.3); Eosinophils Percent Auto 1.5 % (0-4.4); Hematocrit 37.3 % (37.0-47.0); Immature Granulocyte Absolute 0.07 K/mm3 (0.00-0.031); Immature Granulocyte Percent A 0.7 % (0-0.5); Lymphocytes Absolute Auto 2.32 K/mm3 (0.9-3.2); Mean Corpuscular HGB Conc 32.2 g/dl (32-36); Mean Corpuscular Hemoglobin 29.6 pg (26-34); Mean Corpuscular Volume 91.9 fl (80-100); Mean Platelet Volume 12.4 fl (7.4-10.4); Monocytes Absolute Auto 0.5 K/mm3 (0.1-0.6); Monocytes Percent Auto 5.3 % (2.6-8.5); Neutrophils Percent Auto 69.2 % (45.5-73.1); Platelet Count Result 229 k/mm3 (150-375); Red Blood Count 4.06 M/mm3 (4.2-5.4); Red Cell Distribution Width 13.2 % (11.5-14.5); White Blood Count 10.1 K/mm3 (4.5-10.0)
[2024-04-09 11:20] LABS: Alanine Aminotransferase 18 U/L (6-35); Alkaline Phosphatase 106 U/L (38-126); Anion Gap 4 mmol/L (4-12); Aspartate Amino Transferase 43 U/L (14-36); Bilirubin,Total 0.8 mg/dL (0.2-1.3); Blood Urea Nitrogen 19 mg/dL (7-17); Calcium 8.8 mg/dL (8.4-10.2); Carbon Dioxide 26 mmol/L (22-30); Chloride 104 mmol/L (98-107); Cholesterol 146 mg/dL (0-200); Estimated Glomerular Filt Rate > 60; Glucose 133 mg/dL (65-110); HDL Direct 58 mg/dL; Potassium 4.2 mmol/L (3.4-5.0); Sodium 134 mmol/L (137-145); Triglycerides 116 mg/dL (<150)
[2024-04-09 11:31] LABS: LDL Cholesterol Direct 69 mg/dL
[2024-04-09 11:45] LABS: Free T4 Free Thyroxine 1.03 ng/mL (0.78-2.19)
[2024-04-09 11:46] LABS: Vitamin D 25 Hydroxy 18.4 ng/mL
[2024-04-09 12:05] LABS: Creatinine Urine 172.8 mg/dL
[2024-04-09 12:11] LABS: MALB Creatinine Ratio 23.1 mg/g (0-30); Microalbumin Urine Random 39.9 mg/L (0-16.7)
[2024-04-09 12:20] LABS: Hemoglobin A1C 6.7 % (<5.7)
== END 2024-04-09 09:15 | disposition home or self-care (01) ==
LOC: ANHGOSHLAB 09:16
PROVIDERS: Family Medicine; PCP Internal Medicine; Visit Provider Nurse Practitioner
DX: R53.83 Other fatigue (principal); E11.9 Type 2 diabetes mellitus without complications; G43.909 Migraine, unspecified, not intractable, without status migrainosus
CPT/HCPCS: 36415; 80053; 80061; 82043; 82306; 83036; 84439; 84443; 85025

== ENCOUNTER 2024-04-16 13:20 | Outpatient (CLI) | payer OTHER, SELFPAY ==
--- NOTE | ~2024-04-16 | MR_ITS ---
EXAMINATION: MR brain/brain stem wo/w con DATE: 04/16/2024 14:33 INDICATION: Migraine, unspecified, not intractable. TECHNIQUE: Magnetic resonance imaging (MRI) of the brain and brainstem was performed without and with 20 mL MultiHance intravenous contrast. COMPARISON: None. FINDINGS: There is no intracranial hemorrhage, acute infarction, or abnormal intracranial mass lesion . The ventricles are normal in size. The paranasal sinuses are clear. The orbits are normal. The mast oid air cells are normal. IMPRESSION: 1. Normal brain. Reviewed, dictated and finalized at location A. IMPRESSION: 1. Normal brain.
== END 2024-04-16 13:21 | disposition home or self-care (01) ==
PROVIDERS: PCP Internal Medicine; Visit Provider Nurse Practitioner
DX: G43.909 Migraine, unspecified, not intractable, without status migrainosus (principal)
CPT/HCPCS: 70553; A9577

== ENCOUNTER 2024-05-30 09:29 | Outpatient (CLI) | payer OTHER, SELFPAY ==
--- NOTE | ~2024-05-30 | XR_ITS ---
3 VIEWS LUMBAR SPINE Ordering provider: Monse Sanchez NP History: . B/L LBP X5 YRS, RADIATES INTO B/L LOWER EXTREMITY . Comparison: September 02, 2022 FINDINGS: VERTEBRAL BODIES: No visible fracture or subluxation. Mild degenerative changes of the spine. DISK SPACES: Narrowing of the disc L3-L4. SOFT TISSUES: Normal. IMPRESSION: No acute osseous abnormality lumbar spine. Reviewed, dictated and finalized at location A.
== END 2024-05-30 09:30 | disposition home or self-care (01) ==
LOC: ANHIMG 09:30
PROVIDERS: PCP Internal Medicine; Visit Provider Nurse Practitioner
DX: M54.50 Low back pain, unspecified (principal)
CPT/HCPCS: 72110

== ENCOUNTER 2024-07-08 12:30 | Outpatient (RCR) | payer OTHER, SELFPAY ==
--- NOTE | 2024-06-05 16:49 | OPREHPOC ---
Outpatient Therapy Plan of Care This is a Multidisciplinary Plan of Care that may contain components documented by all disciplines (PT, OT, and ST.) PT Problem 1 PT Problem #1 Knowledge Deficit PT Goal 1 Goal Pt to be IND with issued HEP Target Visit 8 PT Problem 2 PT Problem #2 Pain PT Goal 1 Goal Pt to report back pain no greater than 3/10 in the last week. Target Visit 8 PT Goal 2 Goal Pt to report 75% improvement in overall symptoms. PT Problem 3 PT Problem #3 Impaired Gait PT Goal 1 Goal Pt to improve 2 min walk distance from 180ft to 250ft. Target Visit 8 PT Problem 4 PT Problem #4 Impaired Functional Mobil PT Goal 1 Goal Pt to demonstrate a 20lb lift and carry without an increase in pain to be able to carry a laundry basket. Target Visit 8
--- NOTE | 2024-06-05 16:49 | PTOPEVAL1 ---
Assessment and note entered by Nuzhat Acuna, PT, DPT Evaluation Information Assessment Status Evaluation Diagnosis low back pain ICD-10 Condition Codes (PT) Pain in low back M54.50 Onset chronic Subjective Information Pt reports a 6 year history of degenerative disc disease, she states her pain gotten progressively worse in the last 3-4 weeks. Pt states sitting and standing makes her pain worse, ice and heat help with the pain. She states she has pain all of the time. 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 She reports other people carry laundry baskets to the laundry room d/t increased pain. Pt states she has had injections in the past and these have helped, would like to get additional. Reported Pain Level Pain Score 5: Self Report Assessment PT Clinical Summary Jolene presents to therapy today for her initial evaluation with a diagnosis of low back pain. Today she demonstrates functional LE strength and ROM. She stands and ambulates with an anterior pelvic tilt and increased lumbar lordosis. She ambulates with a decreased gait speed and her functional mobility is limited by back pain. Skilled therapy services are indicated to promote improved body awareness, to manage pain, and to limit impairment. Plan of Care Interventions Electrical Stimulation,Hot Pack/Cold Pack,Manual Therapy,Neuro Re-education,Patient/Caregiver Educati,Therapeutic Activities,Therapeutic Exercise PT Services Indicated Yes Treatment Frequency and 2x/wk for 8 visits Duration These treatments will address the objective and functional deficits as defined above. The patient will be advanced safely and appropriately in order for the patient to progress towards his/her prior level of function. Additional exercises will be introduced and as well as a comprehensive home exercise program upon discharge, if needed, ?to ensure carryover of functional gains achieved in the clinic. This treatment plan has been reviewed and agreement upon by the patient.
--- NOTE | 2024-06-25 14:42 | PCPTNOTE ---
Patient called & cancelled scheduled appointment this date due to having a conflicting appointment.
--- NOTE | 2024-06-28 14:25 | PCPTNOTE ---
Patient did not show up for scheduled appointment this date.
--- NOTE | 2024-07-05 12:44 | PCPTNOTE ---
Patient canceled this date due to illness.
--- NOTE | 2024-07-08 13:10 | PTOPDC ---
Assessment and note entered by Nuzhat Acuna, PT, DPT Evaluation Information Assessment Status Discharge Diagnosis low back pain ICD-10 Condition Codes (PT) Pain in low back M54.50 Onset chronic Subjective Information Pt states her back is doing a lot better since starting therapy, she reports 80% improvement to her PLOF. However, she states her pain is a 4/10 an still goes down her L leg, still getting up to a 9/10. She states she can stand longer than before. Reported Pain Level Pain Score 4: Self Report Assessment PT Clinical Summary Pt has completed 4 visits of skilled therapy to treat her back pain. She reports 80% improvement in her overall symptoms despite a high pain reports. She reports no functional limitations at this time and declines a need for continuation of skilled therapy.
== END 2024-07-08 15:53 | disposition home or self-care (01) ==
LOC: ANHGOSHPT 12:30
PROVIDERS: PCP Internal Medicine; Visit Provider Nurse Practitioner
DX: M54.50 Low back pain, unspecified (principal)
CPT/HCPCS: 97110; 97161; 97530

== ENCOUNTER 2025-01-12 09:00 | Emergency (ER) | payer OTHER, SELFPAY ==
[2025-01-12 09:12] VITALS: BP 149/46; PULSE 91; RESP 22; TEMP 36.4; O2SAT 96
--- NOTE | 2025-01-12 09:36 | PC.NURSE ---
Pt. reports R. bicep pain x1 month. Pain worse today. Lifting her R. arm makes the pain worse. Pt. has an appt. with her pcp on Monday.
--- NOTE | 2025-01-12 09:37 | PC.NURSE ---
No wound or injury to R. arm to chart. Pt. just reports pain without trauma, visible injury or deformity.
--- NOTE | 2025-01-12 10:07 | ED.EXTPRO ---
HPI - Extremity Problem General Chief complaint: Extremity Problem,Nontraumatic Stated complaint: right arm pain Time Seen by Provider: 01/12/25 10:04 Source: patient Mode of arrival: ambulatory Limitations: no limitations History of Present Illness HPI Narrative: 44 years old white female came to the ED by private car from home complaining of right upper extremity pain from the shoulder old way down to her right wrist started over 1 month ago. Getting worse. Pain is sharp, squeezing, worse tried to lift her arm or move it around, nothing make it better. Patient is telling me that she have similar symptoms 1 year ago in both arms lasted for 3 weeks then resolved this 1 lasted over 1 month. History of diabetes hypertension asthma CPAP at night, morbid obesity, does not smoke or drink or use drugs. Patient does not work, lives with her mother. Patient denies any recent trauma, chest pain, shortness of breath or back pain or neck pain or headache Related Data Home Medications ?Medication ?Instructions ?Recorded ?Confirmed ?Last Taken ?Type blood-glucose meter ([place] #1 ea 09/26/19 05/17/24 Unknown History UltraMini kit) citalopram 20 mg tablet (Celexa) 20 mg PO DAILY 09/26/19 05/17/24 03/29/21 History trazodone 150 mg tablet 150 mg PO HS 09/26/19 05/17/24 Unknown History ziprasidone HCl 80 mg capsule 80 mg PO HS 09/26/19 05/17/24 Unknown History (Geodon) multivitamin 1 tablet PO DAILY 03/05/21 05/17/24 Unknown History prazosin 1 mg capsule 5 mg PO QHS 12/01/23 05/17/24 Unknown History phentermine 37.5 mg tablet 18.75 mg PO DAILY 01/02/24 05/17/24 Unknown History dulaglutide 1.5 mg/0.5 mL 1.5 mg subcut WEEKLY 04/04/24 05/17/24 Unknown History subcutaneous pen injector (Trulicity) Allergies Allergy/AdvReac Type Severity Reaction Status Date / Time latex Allergy Unknown Rash Verified 01/12/25 09:13 metformin Allergy Unknown Rash Verified 01/12/25 09:13 simvastatin Allergy Unknown Cramping Verified 01/12/25 09:13 of the Muscles Review of Systems Review of Systems: All systems reviewed & are unremarkable except as noted in HPI and below PMFSH Past Medical History Medical History Left knee DJD Hyperlipidemia LDL goal <70 Pulmonary hypertension Sleep disorder Arthritis Osteoporosis Anxiety Cellulitis Excessive hunger Excessive thirst SOB (shortness of breath) Wears glasses Memory loss Light headedness Dizziness Chronic headaches Weight gain Type 2 diabetes mellitus Right wrist pain Cervicalgia Diabetes KOBI (obstructive sleep apnea) Asthma Polycystic ovarian syndrome Depression Bipolar 1 disorder Herpes Migraine Heartburn Chronic midline low back pain without sciatica Chronic pain of right knee Surgical History Surgical History H/O ventral hernia repair 03/29/21 robotic assisted repair of incarcerated periumbilical ventral hernia with 15 x 10 cm symbotex mesh in underlay position History of placement of ear tubes H/O tubal ligation BL Family History Family History Mother Depression Hypertension Sibling Breast cancer Grandparent Lung cancer Other Breast cancer Stage III Other Cancer Other Arthritis Asthma Diabetes mellitus Neuropathy Social History Social History Years smoked: 2 Smoking status: Former smoker Tobacco type: cigarettes Smoking end date: 01/31/18 Alcohol intake: never Substance use: never Substance use type: does not use Do You Feel Safe in your Home?: Yes Lack of Transportation: No Lack of Food: Never True Concerned About Future Housing: No Difficulty Paying Gas/Electric Bills: No Difficulty Paying for Meds: No Currently Unemployed: No Education: High School Diploma/GED Difficulty w/ Childcare or Family Care: No Living arrangements: with family Occupation/Education: unemployed Additional occupation/education comments: Disabled Gender identity (if verbalized by the patient): Female Spiritual care concerns: No Exam Narrative: General appearance: Well-developed, well-nourished, morbidly obese Skin: Normal color Head: Normocephalic, nontraumatic Eyes: Clear conjunctiva ENT: Oropharynx normal, ears normal, nose normal Neck: Supple, nontender Chest and respiratory: Airway patent, no respiratory distress, no accessory muscle use Heart: Regular rate/rhythm Abdomen: Soft, nontender, no organomegaly, quiet bowel sounds Musculoskeletal: Right upper extremity exam showed diffuse tenderness, no bruises, no swelling, no localized tenderness, no deformity, no rash, no weakness no motor or sensory abnormalities Vascular: Normal peripheral pulses, normal capillary refill. No Normal range of motion, nontender back Neurologic: Alert and oriented ?3, FERN GATHERER is normal as tested, no gross motor deficit Course Vital Signs Vital signs: Vital Signs Temperature 36.4 C L 01/12/25 09:12 Pulse Rate 91 01/12/25 09:12 Respiratory Rate 22 H 01/12/25 09:12 Blood Pressure 149/46 H 01/12/25 09:12 Pulse Oximetry 96 01/12/25 09:12 Oxygen Delivery Room Air 01/12/25 09:12 Temperature 36.4 C L 01/12/25 09:12 Pulse Rate 91 01/12/25 09:12 Respiratory Rate 22 H 01/12/25 09:12 Blood Pressure 149/46 H 01/12/25 09:12 Pulse Oximetry 96 01/12/25 09:12 Oxygen Delivery Room Air 01/12/25 09:12 MDM - Extremity (Nontraumatic) MDM Narrative Medical decision making narrative: Patient came with nontraumatic pain at the right upper extremity for over 1 month Vital signs are stable Physical examination consistent with diffuse tenderness of the right upper extremity otherwise within normal limit Differential diagnosis include musculoskeletal, arthritis, less likely deep vein thrombosis, pneumothorax, intra thoracic pathology X-ray of the right upper extremity showed no acute abnormalities Venous Doppler of the right upper extremity showed no acute Chest x-ray showed no acute abnormalities Diagnosis right upper extremity muscular pain Discharged on anti-inflammatory, muscle relaxant. The pt was discharged to home.the pt,s condition upon discharge was fair,education was provided to the pt in reference to the final impression,discharge study results,treatment,prognosis and need for follow up . Differential Diagnosis Differential diagnosis: Likely other (As above) Medical Records Attestation: I reviewed the patient's medical records. Imaging Data Radiologist's impression: Impressions Chest X-Ray 01/12/25 11:13 Impression: Clear lungs Shoulder X-Ray 01/12/25 11:13 Impression: Unremarkable right shoulder radiographs. Venous Doppler Study 01/12/25 11:21 Impression: No evidence of deep vein thrombosis involving the right upper extremity. Discharge Plan Discharge Clinical Impression: Upper arm pain Patient Disposition: Home, Self-Care Condition: Stable Instructions: Arm Pain (ED) Additional Instructions: Return if symptoms are worsening , call your family physician for appointment, take Tylenol as as needed for aches and pain, continue home ibuprofen 800 mg every 8 hours as needed continue home medications. Patient Language: Kyrgyz Prescriptions: New cyclobenzaprine 10 mg tablet 10 mg PO TID PRN (Reason: muscle spasm) Qty: 20 0RF No Action ibuprofen 800 mg tablet 800 mg PO Q6H PRN (Reason: pain) Qty: 30 0RF (DME) OneTouch Ultra Blue Test Strip Strip See Rx Instructions .ROUTE .MEDSUPPLY Qty: 100 0RF Rx Instructions: As directed Trulicity 1.5 mg/0.5 mL pen injector 1.5 mg subcut WEEKLY sumatriptan succinate 50 mg tablet See Rx Instructions PO .COMPLEX Qty: 9 0RF Rx Instructions: take 1 tab at onset of headache; if no relief may repeat 1 tab after at least 2 hrs; max = 4 tabs/24 hr PO cholecalciferol (vitamin D3) 1,250 mcg (50,000 unit) capsule 1,250 mcg PO WEEKLY Qty: 8 0RF multivitamin Tablet 1 tablet PO DAILY prazosin 1 mg capsule 5 mg PO QHS phentermine 37.5 mg tablet 18.75 mg PO DAILY Rx Instructions: must administer 30 minutes before or 1-2 hours after breakfast docusate sodium [Colace] 100 mg capsule 100 mg PO BID Qty: 20 0RF citalopram [Celexa] 20 mg tablet 20 mg PO DAILY ziprasidone HCl [Geodon] 80 mg capsule 80 mg PO HS (DME) blood-glucose meter [OneTouch UltraMini] Kit See Rx Instructions .ROUTE .MEDSUPPLY Qty: 1 Rx Instructions: As directed trazodone 150 mg tablet 150 mg PO HS (DME) lancets [OneTouch UltraSoft Lancets] Misc See Rx Instructions .ROUTE .MEDSUPPLY Qty: 200 0RF Rx Instructions: use to test blood sugar two times a day albuterol sulfate 90 mcg/actuation HFA aerosol inhaler 1 puff inhalation Q4H PRN (Reason: shortness of breath or wheezing) Qty: 8.5 2RF furosemide [Lasix] 20 mg tablet 20 mg PO QAM Qty: 30 1RF fluticasone propionate [Flonase Allergy Relief] 50 mcg/actuation spray,suspension 1 spray intranasal Q12H Qty: 16 0RF Rx Instructions: administer into each nostril omeprazole 20 mg capsule,delayed release(DR/EC) 20 mg PO DAILY Qty: 90 3RF gabapentin 100 mg capsule 100 mg PO BID Qty: 180 1RF glipizide 5 mg tablet 5 mg PO DAILY Qty: 90 1RF lisinopril 5 mg tablet 5 mg PO DAILY Qty: 90 1RF Follow-up/Referrals: Teresa Ramos DO [Physician] -
[2025-01-12] MEDS: HYDROcodone/acetaminophen (*CRX) 5-325 MG TABLET 1 TAB PO (10:55)
[2025-01-12] MEDS: IBUPROFEN 600 MG TABLET PO (10:55)
[2025-01-12 11:54] VITALS: BP 132/82; PULSE 90; RESP 18; O2SAT 98
== END 2025-01-12 11:55 | disposition home or self-care (01) ==
PROVIDERS: Emergency Provider Emergency Medicine; PCP Family Medicine
DX: M79.621 Pain in right upper arm (principal); I27.20 Pulmonary hypertension, unspecified; I10 Essential (primary) hypertension; E11.9 Type 2 diabetes mellitus without complications; E66.01 Morbid (severe) obesity due to excess calories; E28.2 Polycystic ovarian syndrome; J45.909 Unspecified asthma, uncomplicated; M17.12 Unilateral primary osteoarthritis, left knee; M81.0 Age-related osteoporosis without current pathological fracture; G47.33 Obstructive sleep apnea (adult) (pediatric); F31.9 Bipolar disorder, unspecified; Z79.85 Long-term (current) use of injectable non-insulin antidiabetic drugs; Z79.899 Other long term (current) drug therapy; Z79.84 Long term (current) use of oral hypoglycemic drugs; Z68.45 Body mass index [BMI] 70 or greater, adult
CPT/HCPCS: 71045; 73030; 93971; 99284; A9270

== ENCOUNTER 2025-02-19 13:48 | Outpatient (CLI) | payer OTHER, SELFPAY ==
--- NOTE | ~2025-02-19 | MM_ITS ---
EXAMINATION: MM screening [facility] BI w jensen HISTORY: Screening TECHNIQUE: Craniocaudal and mediolateral oblique 3-D tomosynthesis images were obtained and synthetic 2-D images were generated. CAD analysis was submitted and interpreted. COMPARISON: 01/18/2022 BREAST PARENCHYMAL COMPOSITION: Not dense: There are scattered areas of fibroglandular density. FINDINGS: There are benign-appearing breast calcifications. There is no evidence of suspicious mass, calcification, or architectural distortion to suggest malignancy in either breast. There has been no suspicious interval change. IMPRESSION: 1. No mammographic evidence of malignancy. 2. Recommend routine screening mammography in one year. BI-RADS Category 1: Negative Reviewed, dictated and finalized at location A.
--- OUTSIDE RECORDS SUMMARY | 2025-02-19 15:28 | XMS_ITS | Continuity of Care Document ---
Author Organization [facility] Address [address] [place] [address] Phone Care Team Providers Care Java Designer Name Role Phone Mcleod OD, Malcolm Unavailable Unavailable Procedures Procedure Date Eye Exam, New Patient Refraction Advance Directives Directive Yes / No Effective Date File Name No Information Encounters Encounter Description Practice Location Reason(s) For Visit Diagnoses Date Provider Providers Copied on Encounter [facility], [address], [place], [place], [id number], [place] tel:[phone] [facility] No Information 2-[address] Mcleod OD Malcolm. [address] , [address], [place], [address], [place]. tel:[phone] Family History Family Member Type Diagnosis Age At Onset No Information Payers Payer name Insurance type Covered libertarian ID Authoriza tion(s) Medicaid [facility] [id number] Social History Type Description Quantity Date Captured [...]
--- OUTSIDE RECORDS SUMMARY | 2025-02-19 15:28 | XMS_ITS | Clinical Summary ---
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 Gender Identity Not on file Sexual Orientation Not on file Plan of Treatment Health Maintenance Due Date Last Done Comments Hepatitis C Virus (HCV) Screening 1982 TdaP Immunization 1982 Hepatitis B Immunization (1 of 3 - 19+ 3-dose series) 2001 Pap Smear 2003 Cervical Cancer Screening (CCS) 2012 HPV/Cotest 2012 Discussion re Starting/Frequ ency of Mammograms 2022 Influenza Immunization (#1) 2024 SARS-COV-2 Immunization ( season) 2024 Respiratory Syncytial Virus (RSV) Immunization (Adult) (1 - 1-dose 75+ series) 2057 Meningococcal Immunization (ACWY) Aged Out No longer eligible based on patient's age to complete this topic Pneumococcal Immunization Combined Aged Out No longer eligible based on patient's age to complete this topic Rotavirus Immunization Aged Out No lo nger eligible based on patient's age to complete this topic Insurance MEDICAID [employer] Care Teams Turning Machine Operator Helper Relationship Specialty Start Date End Date Provider, None [place] PCP - General 09/10/16
--- OUTSIDE RECORDS SUMMARY | 2025-02-19 15:28 | XMS_ITS | Referral Summary ---
Author Organization [facility] Medical Office Building [address] Address [address] [place] [address] Care Team Providers Care Contracts Director Name Role Phone RichardTeresa DO Unavailable [phone] Parker Yo DO Unavailable [phone] Vazquez Arrington DPM Unavailable Brayden Alexandre MD Primary Care Provider [phone] Autumn Washington MD Unavailable [phone] Encounters Date Type Department Care Team Description 02/17/2025 Orders Only [facility] Family Medicine at [place] [address] [place] [phone] Brayden Alexandre MD 02/04/2025 10:12 AM CDT - 02/04/2025 11:59 PM CDT Hospital Encounter [facility] OP Cardiac Testing [address] [place] [address] Swelling of lower extremity; Dyspnea on exertion; Abnormal EKG; Morbid obesity with BMI of 70 and over, adult (HCC) Discharge Disposition: Discharge to home or self care 02/04/2025 11:28 AM CDT - 02/04/2025 11:59 PM CDT Hospital Encounter [facility] Nuclear Medicine [address] [place] [address] Discharge Disposition: Discharge to home or self care 02/04/2025 11:28 AM CDT - 02/04/2025 11:59 PM CDT Hospital Encounter [facility] Nuclear Medicine [address] [place] [address] Nessa Mckeon MD Discharge Disposition: Discharge to home or self care 02/04/2025 11:28 AM CDT - 02/04/2025 11:59 PM CDT Hospital Encounter [facility] Medicine [address] [place] [address] Discharge Disposition: Discharge to home or self care 02/04/2025 11:27 AM CDT - 02/04/2025 11:59 PM CDT Hospital Encounter [address] [address] Swelling of lower extremity; Dyspnea on exertion; Abnormal EKG; Morbid obesity with BMI of 70 and over, adult (HCC) Discharge Disposition: Discharge to home or self care 01/24/2025 11:15 AM CDT Office Visit [facility] Pain Management [facility] [place] [address] Jon Colunga, PhD Morbid obesity (HCC) (Primary Dx); Bipolar disorder, in full remission, most recent episode mixed; PTSD (post-traumatic stress disorder); Class 3 severe obesity due to excess calories with serious comorbidity and body mass index (BMI) greater than or equal to 70 in adult (HCC); KOBI (obstructive sleep apnea); Primary hypertension; Gastroesophageal reflux disease, unspecified whether esophagitis present; Hyperlipidemia, unspecified hyperlipidemia type 01/18/2025 Results Follow-Up [facility] Family Medicine at [place] [address] [place] [phone] Brayden Alexandre MD 01/17/2025 9:15 AM DUST OPERATOR Office Visit [facility] Cardiology [address] [place] [phone] Nessa Mckeon MD Dyspnea on exertion (Primary Dx); Swelling of lower extremity; Essential hypertension, benign; Abnormal EKG; Morbid obesity with BMI of 70 and over, adult (HCC) 01/16/2025 9:06 AM DUST OPERATOR - 01/16/2025 11:59 PM DUST OPERATOR Hospital Encounter [address] [address] Type 2 diabetes mellitus without complication, without long-term current use of insulin (HCC); Dyslipidemia; Type 2 diabetes mellitus without complication, without long-term current use of insulin (HCC) Discharge Disposition: Discharge to home or self care 01/16/2025 9:15 AM DUST OPERATOR Lab [facility] Outpatient Lab at [address] [address] Abnormal weight gain (Primary Dx) 01/14/2025 Orders Only [facility] Medicine at [address] [address] Brayden Alexandre MD Type 2 diabetes mellitus without complication, without long-term current use of insulin (HCC) (Primary Dx); Dyslipidemia 01/14/2025 1:00 PM DUST OPERATOR Office Visit [facility] Family Medicine at [address] [address] Brayden Alexandre MD Encounter for annual health examination (Primary Dx); Type 2 diabetes mellitus without complication, without long-term current use of insulin (HCC); Swelling of lower extremity; Class 3 severe obesity due to excess calories with serious comorbidity and body mass index (BMI) greater than or equal to 70 in adult (HCC); Dyslipidemia; Lumbar radiculopathy; Hypertension, essential; Gastroesophageal reflux disease without esophagitis; Primary insomnia; Moderate episode of recurrent major depressive disorder (HCC) 01/13/2025 Telephone [facility] Family Medicine at [address] [address] Brayden Alexandre MD verification of PCP 01/12/2025 Orders Only [facility] Health Information Management [address] [place] [address] Brayden Alexandre MD 01/02/2025 Telephone [facility] Family Medicine at [address] [address] Brayden Alexandre MD Medical Question/Miscellaneou s 12/09/2024 10:30 AM DUST OPERATOR Telemedicine [facility] Care [address] [place] [phone] Ashley Pineda NP Viral upper respiratory tract infection (Primary Dx) 12/09/2024 Nurse Triage [facility] Family Medicine at [address] [place] [phone] Brayden Alexandre MD 12/05/2024 Telephone [facility] Medicine at [address] [place] [phone] Brayden Alexandre MD Symptom Based Call from Last 3 Months Allergies Active Allergy Reactions Criticality Noted Date Comments Latex Rash Medium 09/05/2018 Rash to site of latex application Rash to site of latex application Rash to site of latex application Metformin Other (See comments),Rash Medium 09/05/2018 Other reaction(s): Not available, Other (See comments) Simvastatin Muscle pain,Other (S ee comments) Medium 09/05/2018 Leg pain Other reaction(s): Leg Pain, Muscle pain, Not available, Other (See comments) Leg pain Medications ziprasidone (GEODON) 80 mg capsule Take 1 capsule (80 mg total) by mouth 2 times daily Active melatonin 10 mg tablet Active docusate sodium (COLACE) 100 mg capsuleIndications :constipation Take 1 capsule (100 mg total) by mouth 2 (two) times a day Active multivitamin tablet,chewable Take by mouth Active fluticasone propionate (FLONASE) 50 mcg/actuation nasal spray 3 Active diclofenac sodium (Voltaren) 1 % gel Apply 2 g topically 3 (three) times a day Active SUMAtriptan (IMITREX) 50 mg tablet Take 0.5 tablets (25 mg total) by mouth once as needed 4 Active albuterol HFA (PROVENTIL HFA,VENTOLIN HFA,PROAIR HFA) 90 mcg/actuation inhaler Inhale 2 puffs every 6 (six) hours as needed for wheezing 1 each 5 12/09/19 26 Active dulaglutide (TRULICITY) 4.5 mg/0.5 mL pen injectorIndication s:Type 2 diabetes mellitus without complication, without long-term current use of insulin ([facility]) Inject 0.5 mL (4.5 mg total) under the skin every 7 days 6 mL 3 5 01/15/20 26 Active atorvastatin (LIPITOR) 10 mg tabletIndications: Dyslipidemia Take 1 tablet (10 mg total) by mouth daily 90 tablet 3 5 01/15/20 26 Active citalopram (CeleXA) 20 mg tabletIndications: Moderate episode of recurrent major depressive disorder (HCC) Take 1 tablet (20 mg total) by mouth daily 90 tablet 3 5 01/15/20 26 Active furosemide (LASIX) 20 mg tabletIndications: Swelling of lower extremity Take 1 tablet (20 mg total) by mouth daily 90 tablet 3 5 01/15/20 26 Active gabapentin (NEURONTIN) 100 mg capsuleIndications :Lumbar radiculopathy Take 1 capsule (100 mg total) by mouth 2 (two) times a day 180 capsule 3 5 01/15/20 26 Active lisinopriL (PRINIVIL,ZESTRIL) 5 mg tabletIndications: Hypertension, essential Take 1 tablet (5 mg total) by mouth daily 90 tablet 3 5 01/15/20 26 Active omeprazole (PriLOSEC) 20 mg capsuleIndications :Gastroesophageal reflux disease without esophagitis Take 1 capsule (20 mg total) by mouth daily 90 capsule 3 5 01/15/20 26 Active traZODone (DESYREL) 150 mg tabletIndications: Primary insomnia Take 1 tablet (150 mg total) by mouth nightly 90 tablet 3 5 01/15/20 26 Active prazosin (MINIPRESS) 5 mg capsuleIndications :Primary insomnia Take 1 capsule (5 mg total) by mouth nightly 90 capsule 3 5 01/15/20 26 Active cyclobenzaprine (FLEXERIL) 10 mg tablet Take 1 tablet (10 mg total) by mouth 3 (three) times a day as needed for muscle spasms 5 Active Active Problems Problem Noted Date Diagnosed Date Viral upper respiratory tract infection 12/09/19 25 Assessment & Plan (12/09/2024 10:24 AM DUST OPERATOR): Recommend fluids, rest, humidification if needed. She was instructed to call back if symptoms do not improved in a week, or if worsening ones arise. Education provided. Benzonatate sent to pharmacy as well as albuterol inhaler to help ease shortness of breath. The common cold or uri (upper respiratory infections) are uniformly caused by viruses.The use of antibiotics for these infections are discouraged in our day and age as a risk without much if any benefit,Increase fluids will help to thin the secretions.Over the counter meds/cold drugs do not cure this problem but can provide help in tolerating the illness.. Some find the decongestant meds helpful but many find them causing more complaints then they are worth. Cough meds come into play when you cannot control the cough. This comes into play especially at night when you are trying to sleep. Short term use of nasal decongestants are helpful (Afrin), especially at night. Using them at a full dose for more then 3 days is highly associated with your nasal passage relying on them, when this happens the nasal membranes will dilate the blood vessels within the nasal wall and weep secretions that plug up your nose. When this occurs it will take several days to return to normal. There is a place for nasal steroid during a cold as a way to help limit secretions and not lead to a nasal addition. Nasal dryness and subsequent bleeding then can occur at which time you will need to reduce or stop there use for the near future. KOBI (obstructive sleep apnea) 02/27/2024 Diabetes mellitus 12/28/2023 Abnormal weight gain 12/28/2023 Asthma in adult 10/12/2023 Morbid obesity 01/19/2023 Assessment & Plan (01/19/2023 8:58 AM DUST OPERATOR): Given their past success the patient would be a good candidate for weight loss surgery. We have gone over options such as the bypass and sleeve gastrectomy. We have also discussed risks and benefits such as blood clots, staple line leak as well as new or worsening reflux symptoms. They are in understanding. During this time will have them seen by the dietitian and psych. As we get closer to the time of surgery we will set him up for an EGD to look for hiatal hernia, H pylori or other gastric pathology. We will see them back in 4 weeks. They are in understanding of the plan. We have gone over small frequent meals shooting for a goal calorie intake of around 1600 spread throughout 4-5 meals. We have discussed not eating late at night. We have discussed cardiovascular exercise. Greater than 15 minutes was spent in counseling the patient on diet and exercise with regards to her morbid obesity. Diabetic peripheral neuropat hy associated with type 2 diabetes mellitus 01/15/2023 Fissure in skin 01/15/2023 Foot callus 01/15/2023 Class 3 severe obesity due t o excess calories with serious comorbidity and body mass index (BMI) greater than or equal to 70 in adult 01/15/2023 Assessment & Plan (01/14/2025 1:44 PM DUST OPERATOR): Chronic. Uncontrolled. Goal: 120lb Recommend Nutritional every other Monday Seminar. Recommended Medication : Cont. Phentermine. Cont. Truliicty at 4.5mg weekly. Follow through Weight loss surgery Need fasting blood work. Tinea pedis 08/22/2022 Dry skin 12/31/2020 Lumbar radiculopathy 05/27/2019 Social History Tobacco Use Types Packs/Day Years Used Date Smoking Tobacco: Former Cigarettes 0.1 22.4 2 001 - 03/21/2023 Passive Smoke Exposure: Past Tobacco Cessation:Counseling Given: Not Answered Comments:Pt is working towards quitting. She states she is smoking 2 cigarettes a day currently. AUDIT-C Answer Date Recorded Q1: How often do you have a drink containing alcohol? Never 01/14/2025 Q2: How many drinks containi ng alcohol do you have on a typical day when you are drinking? Patient does not drink Q3: How often do you have si x or more drinks on one occasion? Never 01/14/2025 PHQ-2 Answer Date Recorded PHQ-2 Total Score (If total score is 3 or more points, staff should administer the PHQ-9) 0 01/14/2025 Comments No Sex and Gender Information Value Date Recorded Sex Assigned at Not on file Legal Sex Female 10:03 AM DUST OPERATOR Gender Identity Not on file Sexual Orientation Not on file Last Filed Vital Signs Vital Sign Reading Time Taken Comments Blood Pressure 122/80 01/17/2025 10:34 AM DUST OPERATOR Pulse 96 01/17/2025 10:34 AM DUST OPERATOR Temperature 36.2 C (97.2 F) 10/15/2024 2:43 PM DUST OPERATOR Respiratory Rate 18 01/14/2025 1:01 PM DUST OPERATOR Oxygen Saturation 98% 01/17/2025 10: 34 AM DUST OPERATOR Inhaled Oxygen Concentration - - Weight 190.4 kg (419 lb 12.8 oz) 2024 10:34 AM DUST OPERATOR Height 157.5 cm (5' 2 ) 01/17/2025 10:3 4 AM DUST OPERATOR Body Mass Index 76.78 01/17/2025 10:34 AM DUST OPERATOR Plan of Treatment Not on file Procedures Procedure Name Priority Date/Time Associated Diagnosis Comments DIABETIC EYE EXAM Routine 02/07/2025 5:0 5 PM CDT STRESS TEST FOR DUAL READ Schedule Routine, Read Routine (OP Routine) 02/04/2025 2:45 PM CDT Swelling of lower extremity Dyspnea on exertion Abnormal EKG Morbid obesity with BMI of 70 and over, adult ([facility]) NM MPI SPECT (REST AND/OR STRESS) MULTIPLE STUDIES Schedule Routine, Read Routine (OP Routine) 02/04/2025 2:45 PM CDT Swelling of lower extremity Dyspnea on exertion Abnormal EKG Morbid obesity with BMI of 70 and over, adult ([facility]) TRANSTHORACIC ECHO (TTE) COMPLETE W DOPPLER/CF WO CONTRAST Routine 02/04/2025 11:06 AM CDT Swelling of lower extremity Dyspnea on exertion Abnormal EKG Morbid obesity with BMI of 70 and over, adult ([facility]) ECG 12-LEAD Routine 01/17/2025 10:27 AM DUST OPERATOR Swelling of lower extremity EGFR Routine 01/16/2025 8:25 PM DUST OPERATOR Type 2 diabetes mellitus without complication, without long-term current use of insulin ([facility]) DIFFERENTIAL AUTO Routine 01/16/2025 8:2 5 PM DUST OPERATOR Type 2 diabetes mellitus without complication, without long-term current use of insulin ([facility]) TSH Routine 01/16/2025 8:25 PM DUST OPERATOR Type 2 diabetes mellitus without complication, without long-term current use of insulin (HCC) LIPID PANEL Routine 01/16/2025 8:25 PM DUST OPERATOR Dyslipidemia COMPREHENSIVE METABOLIC PANEL Routine 01/16/2025 8:25 PM DUST OPERATOR Type 2 diabetes mellitus without complication, without long-term current use of insulin (HCC) CBC WITH AUTO DIFFERENTIAL Routine 01/16/2025 8:25 PM DUST OPERATOR Type 2 diabetes mellitus without complication, without long-term current use of insulin (HCC) ALBUMIN CREATININE RATIO, URINE Routine 01/16/2025 9:06 AM DUST OPERATOR Type 2 diabetes mellitus without complication, without long-term current use of insulin (HCC) SCAN - RADIOLOGY/IMAGING 01/12/2025 from Last 3 Months Results * Diabetic Eye Exam (02/07/2025 5:05 PM CDT) Historical Provider HEALTH MAINTENANCE Final Result * NM MPI SPECT (Rest and/or Stress) Multiple Studies (02/04/2025 2:45 PM CDT) Anatomical Region Laterality Modality Body N/A Nuclear Medicine Narrative 02/04/2025 5:56 PM CDT Patient Id: Tawana Garcia is a 44 y.o. female. MR#: [id number] Study date: 02/04/2025 Report of the nuclear portion of the stress test Please see separate dictation by Me for indications and stress portion MPI report: Patient received 13 mCi of Myoview at rest. Patient received 36 mCi of Myoview at stress Quality of the study: For given the body habitus. No motion correction performed. No prone images were obtained. Findings: Left ventricular cavity normal at rest and stress images. Right ventricle is normal with normal contractility. SPECT stress images revealed mild decrease in tracer uptake involving the mid anterior and also distal anteroseptal region. Remaining segments appears flutter perfuse normally. SPECT rest images also revealed patchy areas of perfusion defect involving the focal area for basal anterior, mid anteroseptal and also lateral apical region. No specific pattern noted. No definite reversible areas of ischemia noted. Gated images demonstrates normal wall motion. Calculated ejection fraction is 73% and TID ratio 0.90 Impressions: No definite areas of reversible ischemia noted. Patchy areas of perfusion defect suggestive of probably attenuation rather than ischemia or infarct. Normal left wall motion Calculated ejection fraction is 73%. Copy to Brayden Alexandre MD 02/04/2025 us Nessa Mckeon MD IMG NM PROCEDURES Final Res ult * Stress Test for Myocardial Perfusion (02/04/2025 2:45 PM CDT) Anatomical Region Laterality Modality Nuclear Medicine Narrative 02/04/2025 1:46 PM CDT Patient Id: Tawana Garcia is a 44 y.o. female. MR#: [id number] Study date:02/04/2025 Indications: Patient adult female who had history of obesity, shortness of breath and nonspecific T-wave change EKG brought in today for a Lexiscan Myoview stress test Procedure: Baseline EKG showed sinus rhythm with a heart rate of 90 beats per minute. Blood pressure 128/70 mm of mercury. Nonspecific T-wave changes noted. Patient received 0.4 mg Lexiscan followed by fluid bolus and Myoview injection During infusion and recovery rhythm is sinus rhythm and heart rate increased 102 beats per minute. No arrhythmia noted. Blood pressure is 124/75 mm of mercury which is normal response. Conduction normal. Nonspecific T-wave changes and no ST depressions suggestive of ischemia noted. Test terminated secondary end of protocol. Impressions: Tolerate Lexiscan well No chest pain noted during the test EKG negative for ischemia Myoview scan is pending. Plan: EKG portion of the stress test discussed with the patient. False positives and negatives discussed. Depending on the Myoview scan I will make further recommendations I personally supervised and reviewed the stress stress. Copy to Brayden Alexandre MD 02/04/2025 This report was transcribed using the [employer] voice recognition system without human leaf tier. In an effort to expedite patient care, this report has not been adjusted for typographical, grammatical, and syntax by a trained nurses medical assistants phlebotomists. Despite proof reading there may be errors. Please contact me if you have any questions. Procedure Note Nessa Mckeon MD - 02/04/2025 Patient Id: Tawana Garcia is a 44 y.o. female. MR#: [id number] Study date:02/04/2025 Indications: Patient adult female who had history of obesity, shortness of breath andnonspecific T-wave change EKG brought in today for a Lexiscan Myoviewstress test Procedure: Baseline EKG showed sinus rhythm with a heart rate of 90 beats per minute.Blood pressure 128/70 mm of mercury. Nonspecific T-wave changes noted. Patient received 0.4 mg Lexiscan followed by fluid bolus and Myoviewinjection During infusion and recovery rhythm is sinus rhythm and heart rateincreased 102 beats per minute. No arrhythmia noted. Blood pressure is124/75 mm of mercury which is normal response. Conduction normal.Nonspecific T-wave changes and no ST depressions suggestive of ischemianoted. Test terminated secondary end of protocol. Impressions: Tolerate Lexiscan well No chest pain noted during the test EKG negative for ischemia Myoview scan is pending. Plan: EKG portion of the stress test discussed with the patient. Falsepositives and negatives discussed. Depending on the Myoview scan I willmake further recommendations I personally supervised and reviewed the stress stress. Copy to Brayden Alexandre MD 02/04/2025 This report was transcribed using the [employer] voicerecognition system without human leaf tier. In an effort toexpedite patient care, this report has not been adjusted fortypographical, grammatical, and syntax by a trained medicaltranscriptionist. Despite proof reading there may be errors. Pleasecontact me if you have any questions. us Nessa Mckeon MD CV STRESS PROCEDURES Final Result * TRANSTHORACIC ECHO (TTE) COMPLETE W DOPPLER/CF WO CONTRAST (02/04/2025 11:06 AM CDT) LV EF 60-65 % CONS SCIMAGE Anatomical Region Laterality Modality Ultrasound 02/04/2025 10:2 6 AM CDT Narrative 02/04/2025 10:21 PM CDT Transthoracic Echocardiographic Report Patient Name: TAWANA GARCIA AMB : 1980 (44y 6m) Gender: F Study Date: 02/04/2025 10:26:52 AM Ht(Inch): 62 Wt(Lb): 419.01 BSA: 2.88 Ict Sales Representative: Nargis Alvarez RDCS Order Provider: NESSA MCKEON Heart Rate: 92 BMI: 76.63 BP: 122 / 80 Ref Provider: NESSA MCKEON PROCEDURES: Echocardiographic Report: ([id number]) Transthoracic complete echo, 2D, spectral and tissue Doppler, color flow Doppler, M-mode. Technically difficult study due to: Technically difficult study due to Body Habitus. INDICATIONS: M79.89 Other specified soft tissue disorders, R06.09 Other forms of dyspnea, R94.31 Abnormal electrocardiogram (ECG) (EKG), E66.01 Morbid (severe) obesity due to excess calories, and Z68.45 Body mass index (BMI) 70 or greater, adult. FINDINGS: Left Ventricle: Normal left ventricular cavity size. Normal Left ventricular wall thickness. Normal left ventricular systolic function. The Ejection Fraction (Gregory's) is measured at 65 %. The Ejection Fraction is visually estimated to be 60-65 %. Diastolic Function Left ventricular diastolic parameters are consistent with Grade II diastolic dysfunction (increased mean LA pressure). Right Ventricle: Normal right ventricular size. Normal right ventricular systolic function. Left Atrium: The left atrium is normal in size. Right Atrium: The right atrium is normal in size. Atrial Septum: No shunt by color Doppler. Mitral Valve: Normal mitral valve leaflet structure. No mitral regurgitation seen. No mitral valve stenosis. NO mitral valve prolapse seen. Aortic Valve: Trileaflet aortic valve. No aortic regurgitation seen. No aortic valve stenosis. Tricuspid Valve: The tricuspid valve demonstrates normal leaflet structure. TR noted by spectral doppler but not seen with colorflow. The estimated right ventricular systolic pressure is 34 mmHg. Normal estimated pulmonary artery systolic pressure. Pulmonic Valve: The Pulmonic Valve is grossly normal. No evidence of pulmonic regurgitation. Pericardium: No pericardial effusion noted. Aorta: Normal aortic root. The aortic Sinus is normal in size. IVC: IVC is normal in size. The estimated RA pressure is 3 mmHg. CONCLUSIONS: 1. Technically Difficult Study. 2. The Ejection Fraction (Gregory's) is measured at 65 %. The Ejection Fraction is visually estimated to be 60-65 %. Diastolic Function Left ventricular diastolic parameters are consistent with Grade II diastolic dysfunction (increased mean LA pressure). 3. TR noted by spectral doppler but not seen with colorflow. Normal estimated pulmonary artery systolic pressure. MEASUREMENTS: 2D/MM Value Range Doppler Value LVIDd 2D 5.60 cm [ 3.50 - 5.70 ] AV Peak Ned 1.82 m/s LVIDs 2D 3.70 cm [ 3.10 - 4.60 ] AV Peak PG 13.25 mmHg IVSd 2D 1.03 cm [ 0.60 - 1.20 ] LVOT Peak Ned 1.47 m/s LVPWd 2D 1.00 cm [ 0.60 - 1.10 ] LVOT Peak PG 8.64 mmHg LV Thickness Ratio 1.03 LVOT Diam 2.00 cm LV Mass 2D 229.68 g LAURA Vmax 2.54 cm2 LV Mass Index 2D 79.75 g/m2 MV E Peak Ned 1.17 m/s RWT 0.36 MV A Peak Ned 0.90 m/s EDV Mod BP 78.50 ml [ 46.00 - 106.00 ] MV E/A 1.30 ratio LV EDV Index 27.26 ml/m2 MV Decel Time 180.00 msec ESV Mod BP 27.90 ml [ 14.00 - 42.00 ] Med E` Ned 8.81 cm/sec EF Mod BP 65 % [ 54 - 74 ] Lat E` Ned 8.81 cm/sec Visually Estimated EF 60-65 % Average E/E` 13.28 LA Dimension 2D 3.70 cm [ 1.90 - 4.00 ] RV S` 13.20 cm/sec AoR Diam 2D 3.00 cm [ 2.00 - 3.70 ] TR Peak Ned 2.76 m/s Ao Root Index 1.04 cm/m2 [ 1.00 - 2.00 ] TR Peak PG 30.5 mmHg RA Pressure 3.00 mmHg RVSP 33.50 mmHg PV Peak Ned 1.47 m/s PV Peak PG 8.64 mmHg - ATTESTATION: I have reviewed and interpreted the pertinent images and measurements of this study. I attest to the conclusions in the final report that is provided above. DISCLAIMER: The study images and the final report will be retained in the patient chart by the [facility] for the legally required time period. This chart constitutes the legal record of any testing performed. Electronically Signed By: Nessa Mckeon MD 02/04/2025 10:20:40 PM CDT Procedure Note Nessa Mckeon MD - 02/04/2025 Transthoracic Echocardiographic Report Patient Name: TAWANA GARCIA AMB : 1980 (44y 6m) Gender: F Study Date: 02/04/2025 10:26:52 AM Ht(Inch): 62 Wt(Lb): 419.01 BSA: 2.88 Ict Sales Representative: Nargis Alvarez RDCS Order Provider: NESSA MCKEON Heart Rate: 92 BMI: 76.63 BP: 122 / 80 Ref Provider: NESSA MCKEON PROCEDURES: Echocardiographic Report: ([id number]) Transthoracic complete echo, 2D,spectral and tissue Doppler, color flow Doppler, M-mode. Technically difficult study due to: Technically difficult study due toBody Habitus. INDICATIONS: M79.89 Other specified soft tissue disorders, R06.09 Other forms ofdyspnea, R94.31 Abnormal electrocardiogram (ECG) (EKG), E66.01 Morbid (severe) obesity dueto excess calories, and Z68.45 Body mass index (BMI) 70 or greater, adult. FINDINGS: Left Ventricle: Normal left ventricular cavity size. Normal Leftventricular wall thickness. Normal left ventricular systolic function. The EjectionFraction (Gregory's) is measured at 65 %. The Ejection Fraction is visually estimated to be60-65 %. Diastolic Function Left ventricular diastolic parameters are consistent with GradeII diastolic dysfunction (increased mean LA pressure). Right Ventricle: Normal right ventricular size. Normal right ventricularsystolic function. Left Atrium: The left atrium is normal in size. Right Atrium: The right atrium is normal in size. Atrial Septum: No shunt by color Doppler. Mitral Valve: Normal mitral valve leaflet structure. No mitralregurgitation seen. No mitral valve stenosis. NO mitral valve prolapse seen. Aortic Valve: Trileaflet aortic valve. No aortic regurgitation seen. Noaortic valve stenosis. Tricuspid Valve: The tricuspid valve demonstrates normal leafletstructure. TR noted by spectral doppler but not seen with colorflow. The estimated rightventricular systolic pressure is 34 mmHg. Normal estimated pulmonary artery systolicpressure. Pulmonic Valve: The Pulmonic Valve is grossly normal. No evidence ofpulmonic regurgitation. Pericardium: No pericardial effusion noted. Aorta: Normal aortic root. The aortic Sinus is normal in size. IVC: IVC is normal in size. The estimated RA pressure is 3 mmHg. CONCLUSIONS: 1. Technically Difficult Study. 2. The Ejection Fraction (Gregory's) is measured at 65 %. The EjectionFraction is visually estimated to be 60-65 %. Diastolic Function Left ventriculardiastolic parameters are consistent with Grade II diastolic dysfunction (increasedmean LA pressure). 3. TR noted by spectral doppler but not seen with colorflow. Normalestimated pulmonary artery systolic pressure. MEASUREMENTS: 2D/MM Value Range DopplerValue LVIDd 2D 5.60 cm [ 3.50 - 5.70 ] AV Peak Vel1.82 m/s LVIDs 2D 3.70 cm [ 3.10 - 4.60 ] AV Peak PG13.25 mmHg IVSd 2D 1.03 cm [ 0.60 - 1.20 ] LVOT PeakVel 1.47 m/s LVPWd 2D 1.00 cm [ 0.60 - 1.10 ] LVOT Peak PG8.64 mmHg LV Thickness Ratio 1.03 LVOT Diam2.00 cm LV Mass 2D 229.68 g LARUA Vmax2.54 cm2 LV Mass Index 2D 79.75 g/m2 MV E PeakVel 1.17 m/s RWT 0.36 MV A PeakVel 0.90 m/s EDV Mod BP 78.50 ml [ 46.00 - 106.00 ] MV E/A1.30 ratio LV EDV Index 27.26 ml/m2 MV DecelTime 180.00 msec ESV Mod BP 27.90 ml [ 14.00 - 42.00 ] Med E` Vel8.81 cm/sec EF Mod BP 65 % [ 54 - 74 ] Lat E` Vel8.81 cm/sec Visually Estimated EF 60-65 % Average E/E`13.28 LA Dimension 2D 3.70 cm [ 1.90 - 4.00 ] RV S`13.20 cm/sec AoR Diam 2D 3.00 cm [ 2.00 - 3.70 ] TR Peak Vel2.76 m/s Ao Root Index 1.04 cm/m2 [ 1.00 - 2.00 ] TR Peak PG30.5 mmHg RA Pressure 3.00 mmHg RVSP 33.50 mmHg PV Peak Ned 1.47 m/s PV Peak PG 8.64 mmHg - ATTESTATION: I have reviewed and interpreted the pertinent images and measurements ofthis study. I attest to the conclusions in the final report that is provided above. DISCLAIMER: The study images and the final report will be retained in the patientchart by the [facility] for the legally required time period. This chart constitutesthe legal record of any testing performed. Electronically Signed By: Nessa Mckeon MD 02/04/2025 10:20:40 PM CDT Nessa Mckeon MD CV ECHO PROCEDURES Final Re sult * ECG 12 lead (01/17/2025 10:27 AM DUST OPERATOR) Nessa Mckeon MD ECG ORDERABLES Final Resul t * eGFR (01/16/2025 8:25 PM DUST OPERATOR) eGFR >90 >=60 mL/min/1. 73 m2 Comment: Interpretive Data Reference Interval Normal >/= 90 mL/min/1.73m2 Mildly decreased* 60 - 89 mL/min/1.73m2 Mildly to moderately decreased 45 - 59 mL/min/1.73m2 Moderately to severely decreased 30 - 44 mL/min/1.73m2 Severely decreased 15 - 29 mL/min/1.73m2 Kidney Failure < 15 mL/min/1.73m2 *Relative to young adult level Estimated glomerular filtration rate is determined by the 2020 CKD-EPI equation recommended by the National Kidney Foundation (A Unifying Approach to GFR Estimation: Recommendations of the NKF-ASK Task Force on Reassessing the Inclusion of Race in Diagnosing Kidney Disease, JASN 2020). The CKD-EPI equation should not be used for patients with unstable renal function and has not been validated in children and those over 70. Current interpretive data was last reviewed 2021. Blood 01/16/2025 8:25 PM DUST OPERATOR 01/16/2025 8:26 PM DUST OPERATOR Brayden Alexandre MD LAB BLOOD ORDERABLES Final Resul t [facility] [id number] Department [place] [address] * Differential, auto (01/16/2025 8:25 PM DUST OPERATOR) Neutrophil abs 5.6 1.5 - 6.5 K/cumm Imm gran abs 0.0 0.0 - 0.1 K/cumm [facility] Lymphocyte abs 2.0 0.8 - 3.3 K/cumm [facility] Monocyte abs 0.5 0.2 - 0.8 K/cumm [facility] Eosinophil abs 0.1 0.0 - 0.5 K/cumm [facility] Basophil abs 0.0 0.0 - 0.1 K/cumm [facility] Neutrophil pct 67.1 % [facility] Comment: Interpretive Data Percent cell count reference ranges are not reported, since discordance with absolute values may lead to misinterpretation of CBC data. Current Interpretive Data was last revised on 2018. Imm gran pct 0.4 % [facility] Comment: Interpretive Data Percent cell count reference ranges are not reported, since discordance with absolute values may lead to misinterpretation of CBC data. Current Interpretive Data was last revised on 2018. Lymphocyte pct 24.3 % [facility] Comment: Interpretive Data Percent cell count reference ranges are not reported, since discordance with absolute values may lead to misinterpretation of CBC data. Current Interpretive Data was last revised on 2018. Monocyte pct 6.2 % [facility] Comment: Interpretive Data Percent cell count reference ranges are not reported, since discordance with absolute values may lead to misinterpretation of CBC data. Current Interpretive Data was last revised on 2018. Eosinophil pct 1.5 % [facility] Comment: Interpretive Data Percent cell count reference ranges are not reported, since discordance with absolute values may lead to misinterpretation of CBC data. Current Interpretive Data was last revised on 2018. Basophil pct 0.5 % [facility] Comment: Interpretive Data Percent cell count reference ranges are not reported, since discordance with absolute values may lead to misinterpretation of CBC data. Current Interpretive Data was last revised on 2018. Blood 01/16/2025 8:25 PM DUST OPERATOR 01/16/2025 8:25 PM DUST OPERATOR us Brayden Alexandre MD LAB BLOOD ORDERABLES Final Resul t [facility] [id number] [place] [address] * (ABNORMAL) CBC with auto differential (01/16/2025 8:25 PM DUST OPERATOR) WBC 8.3 3.8 - 9.9 K/cumm Hgb 12.2 11.9 - 15.5 g/dL [facility] Hct 39.9 35.6 - 45.5 % [facility] Plt 251 150 - 400 K/cumm [facility] MPV 12.2 9.1 - 12.3 fL [facility] RBC 4.14 3.90 - 5.20 M/cumm [facility] MCV 96.4 81.3 - 96.4 fL [facility] MCH 29.5 27.1 - 33.3 pg [facility] MCHC 30.6(L) 32.3 - 35.7 g/dL [facility] RDW CV 13.7 11.1 - 14.9 % [facility] RDW SD 48.8(H) 35.7 - 48.1 fL [facility] NRBC abs 0.00 0.00 - 0.01 K/cumm [facility] Blood 01/16/2025 8:25 PM DUST OPERATOR 01/16/2025 8:25 PM DUST OPERATOR Brayden Alexandre MD LAB BLOOD ORDERABLES Final Resul t Performing Organization Address [facility] de Phone Number [facility]ER [id number] [place], [place] [id number] * TSH (01/16/2025 8:25 PM DUST OPERATOR) Thyroid Stimulating Hormone 1.69 0.30 - 4.20 mcIUnit/mL Blood 01/16/2025 8:25 PM DUST OPERATOR 01/16/2025 8:25 PM DUST OPERATOR Brayden Alexandre MD LAB BLOOD ORDERABLES Final Resul t Performing Organization Address [facility] Co de Phone Number [facility] [id number] [facility] [employer] [place], [place] [id number] * Lipid panel (01/16/2025 8:25 PM DUST OPERATOR) Cholesterol 158 30 - 199 mg/dL Comment: Interpretive Data Ages < or = 19 years Acceptable: <170 mg/dL Borderline high: 170-199 mg/dL High: >or= 200 mg/dL Ages > or = 20 years Desirable: <200 mg/dL Borderline high: 200-239 mg/dL High: >or= 240 mg/dL Literature References: 1. Expert Panel on Integrated Guidelines for Cardiovascular Health and Risk Reduction in Children and Adolescents. Pediatrics 2011;128:S213 2. NCEP Expert Panel. Circulation 2004;110:227 Current Interpretive Data was last revised on 2018. Triglycerides 80 <=149 mg/dL [facility] Comment: Interpretive Data Ages < or = 9 years Acceptable: <75 mg/dL Borderline high: 75-99 mg/dL High: >or= 100 mg/dL Ages 10 to 20 years Acceptable: <90 mg/dL Borderline high: 90-129 mg/dL High: >or= 130 mg/dL Ages > or = 20 years Desirable: <150 mg/dL Borderline high: 150-199 mg/dL High: 200-499 mg/dL Very high: >or= 499 mg/dL Literature References: 1. Expert Panel on Integrated Guidelines for Cardiovascular Health and Risk Reduction in Children and Adolescents. Pediatrics 2011;128:S213 2. NCEP Expert Panel. Circulation 2004;110:227 Current Interpretive Data was last revised on 2018. HDL 54 >=40 mg/dL [facility] Comment: Interpretive Data Ages < or = 19 years Acceptable: >45 mg/dL Borderline low: 40-45 mg/dL Low: <40 mg/dL Ages > or = 20 years Desirable: >or= 60 mg/dL Low: <40 mg/dL Literature References: 1. Expert Panel on Integrated Guidelines for Cardiovascular Health and Risk Reduction in Children and Adolescents. Pediatrics 2011;128:S213 2. NCEP Expert Panel. Circulation 2003;110:227 Current Interpretive Data was last revised on 2018. LDL, calculated 89 <=129 mg/dL [facility] Comment: Interpretive Data Ages < or = 19 years Acceptable: <110 mg/dL Borderline high: 110-129 mg/dL High: >or= 130 mg/dL Ages > or = 20 years Optimal: <100 mg/dL Near optimal: 100-129 mg/dL Borderline high: 130-159 mg/dL High: >160 mg/dL Calculated using the Mcdonald LDL-C estimating equation. This equation was implemented on 2024. Prior to this date LDL-C was estimated using the Friedewald equation. Literature References: 1. Expert Panel on Integrated Guidelines for Cardiovascular Health and Risk Reduction in Children and Adolescents. Pediatrics 2011;128:S213 2. NCEP Expert Panel. Circulation 2004;110:227 3. Harry M et al. KRYSTAL Cardiol. 2020 March 13;5(5):540-548. doi: 10.1001/jamacardio.2020.0013 Current Interpretive Data was last revised on 2024. Non-HDL Cholesterol 104 mg/dL [facility] Comment: Interpretive Data Ages < or = 19 years Acceptable: <120 mg/dL Borderline high: 120-144 mg/dL High: >145 mg/dL Ages > or = 20 years When triglycerides are >200 mg/dL, Non-HDL cholesterol is a secondary target of therapy with treatment goals that are 30 mg/dL greater than the LDL cholesterol target. Literature References: 1. Expert Panel on Integrated Guidelines for Cardiovascular Health and Risk Reduction in Children and Adolescents. Pediatrics 2011;128:S213 2. NCEP Expert Panel. Circulation 2004;110:227 Current Interpretive Data was last revised on 2018. Chol/HDL ratio 3 [facility] Blood 01/16/2025 8:25 PM DUST OPERATOR 01/16/2025 8:25 PM DUST OPERATOR us Brayden Alexandre MD LAB BLOOD ORDERABLES Final Resul t [facility] [address] Department [place] [address] * Comprehensive metabolic panel (01/16/2025 8:25 PM DUST OPERATOR) Sodium 138 135 - 145 mmol/L Potassium, pl 4.4 3.3 - 4.9 mmol/L [facility] Chloride 102 97 - 110 mmol/L [facility] CO2 24 22 - 32 mmol/L [facility] Anion gap 12 2 - 15 mmol/L [facility] BUN 15 6 - 25 mg/dL [facility] Creatinine 0.77 0.60 - 1.10 mg/dL [facility] Glucose 131 70 - 199 mg/dL [facility] Comment: Interpretive Data Fasting glucose >/= 126 mg/dl is diagnostic for diabetes. Fasting is defined as no caloric intake for at least 8 hours. Fasting glucose between 100 mg/dl to 125 mg/dl is diagnostic of prediabetes. In a patient with classic symptoms of hyperglycemia or hyperglycemic crisis, a random glucose >/= 200 mg/dl is diagnostic for diabetes. In the absence of unequivocal hyperglycemia, results should be confirmed by repeat testing. The classification and Diagnosis of Diabetes Diabetes Care 2021; 46: S19-S40. Current interpretive data was last revised 2022. Calcium 9.3 8.5 - 10.3 mg/dL [facility] Bilirubin, total 0.7 0.1 - 1.2 mg/dL [facility] Protein, pl 7.4 6.5 - 8.5 g/dL [facility] Albumin 4.0 3.5 - 5.0 g/dL [facility] Alk phos 100 40 - 130 Units/L [facility] ALT 13 7 - 45 Units/L [facility] AST 23 10 - 45 Units/L [facility] Blood 01/16/2025 8:25 PM DUST OPERATOR 01/16/2025 8:25 PM DUST OPERATOR Brayden Alexandre MD LAB BLOOD ORDERABLES Final Resul t Performing Organization Address [facility] Co de Phone Number [facility] [phone] [place] [address] * Albumin Creatinine Ratio, Urine (01/16/2025 9:06 AM DUST OPERATOR) Albumin Ur 25.1 mg/L Comment: Interpretive Data No reference range established. Current interpretive data was last revised 2019. Creatinine Ur 268.8 mg/dL [facility] Comment: Interpretive Data No reference range established. Current interpretive data was last revised 2019. Albumin Creatinine Ratio, Ur 9 1 - 29 mg/g [facility] Urine 01/16/2025 9:06 AM DUST OPERATOR 01/16/2025 8:25 PM DUST OPERATOR Brayden Alexandre MD LAB URINE ORDERABLES Final Resul t Performing Organization Address [facility] Co de Phone Number [facility] [phone] Department [place] [address] * SCAN - RADIOLOGY/IMAGING (01/12/2025) Anatomical Region Laterality Modality Other Brayden Alexandre MD Final Result from Last 3 Months Insurance [facility] Care Teams Contracts Director Relationship Specialty Start Date End Date Brayden Alexandre MD [address] [place] [address] PCP - General Family Medicine 12/05/24 Teresa Ramos DO Family Medicine 01/09/23 Parker Yo DO Internal Medicine 01/09/23 Vazquez Arrington DPM [address] [place] [address] Podiatry 01/19/23 Autumn Washington MD [address] [place] [address] Consulting Physician Psychiatry 01/14/25
--- OUTSIDE RECORDS SUMMARY | 2025-02-19 15:28 | XMS_ITS | Data Portability ---
Author Organization [facility] [employer], Main Office Address [address] [place] [address] Care Team Providers Care Garment Examiner Name Role Phone LELAND GARZA Primary Care Provider LELAND GARZA Referring Provider [phone] Assessment Encounter Date Assessment Date Assessment LastModified by Organization Details LastModified Time 01/16/2023 01/16/2023 This note is dictated and transcribed by [employer]. Special Needs Tutor variances may occur. Despite proofreading, typographical errors may occur. Not available 01/16/2023 17:20:01 08/08/2024 08/08/2024 This note is dictated and transcribed by [employer]. Special Needs Tutor variances may occur. Despite proofreading, typographical errors may occur. Occasional wrong-word or 'ixkst-d-npaq' substitutions may have occurred due to the inherent limitations of voice recording. Read the chart carefully and recognize, using context, where substitutions have occurred. [email or web address] Not available 08/08/2024 14:07:38 12/23/2024 12/23/2024 This note is dictated and transcribed by [employer]. Special Needs Tutor variances may occur. Despite proofreading, typographical errors may occur. Occasional wrong-word or 'zovuv-q-arfv' substitutions may have occurred due to the inherent limitations of voice recording. Read the chart carefully and recognize, using context, where substitutions have occurred. Not available 12/23/2024 17:51:52 Plan of Treatment Reminders Order Date Submit Date Provider Last Modified By Organization Details Last Modified Time Details Appointments Establish ed Patient 15 2024 03:45P Lydia Arrington DPM Not available Not available Not available Lab None recorded. Referral rheumatol ogist referral - psoriasis left heel 2024 025 [email or web address] Not available 01/23/2025 11:52:21 Procedures None recorded. Surgeries None recorded. Imaging None recorded. Medication Orders urea 40 % topical cream 2024 025 [id number], [address], [place], [id number], 12/23/2024 17:37:47 Patient TargetsNo targets recorded. Patient InstructionsNo instructions recorded. Reason for Referral Outreach Educator Referral for Non-pustular psoriasis of hands and feet psoriasis foot psoriasis left heel Referring Physician: Vazquez Arrington, Podiatric Surgery, Encounter Date: 12/23/2024 Problems Name Problem SNOMED Code Status Onset Date Resolution Date Notes Provider Name and Address Organization Details Recorded Time Dry skin 99611846 Active 2020 Not Available [facility] 3 06:11:22 Tinea pedis 8938721 Active 2021 Not Available [facility] 3 06:11:22 Diabetes mellitus 67993568 Active Not Available [facility] 3 06:11:22 Peripheral neuropathy due to type 2 diabetes mellitus 4781115924900 Active 2022 Vazquez Arrington DPM [address], [place], [address] , [employer] 3 17:19:14 Fissure in skin 50015751 Active 2022 Vazquez Arrington DPM [address], [place], [address] , [employer] 3 17:19:23 Foot callus 395792089 Active 2022 Vazquez Arrington DPM [address], [place], [address] , [employer] 3 17:19:34 Morbid obesity 888646552 Active 2022 Vazquez Arrington DPM [address], [place], [address] , [employer] 3 17:20:06 Dystrophia unguium 83966516 Active 2023 Vazquez Arrington DPM [address], [place], [address] , [employer] 4 14:07:52 Non-pustul ar psoriasis of hands and feet 562614091 Active 2024 Vazquez Arrington DPM [address], [place], [address] , [employer] 5 17:35:16 Problem Notes None recorded. Procedures Surgical History Date Name Laterality Status Provider Name and Address Organization Details Recorded Time 5 Nail Debridement completed Vazquez Arrington DPM [address], [place], [address], [employer] 12/23/2024 17:51:46 4 Nail Debridement completed Vazquez Arrington DPM [address], [place], [address], [employer] 08/08/2024 14:07:28 3 Callus Debridement 2-4 completed Vazquez Arrington DPM [address], [place], [address], [employer] 02/10/2023 12:31:20 Imaging Results None recorded. Procedure Notes None recorded. Medical Equipment None Reported. Allergies Allergen ID Allergen Name Allergen Category Reaction Reaction Severity Criticality Documentation Date Start Date Code Code System Note Provider Name and Address Organization Details Recorded Time 35627 simvastat in medicatio n Not available Not available Not available 01/11/2023 34594 RxNorm Not Available [facility] 3 06:17:09 15878 metformin medicatio n Not available Not available Not available 01/11/2023 6809 RxNorm Not Available [facility] 3 06:17:09 Medications Name Sig Start Date Stop Date Status Note LastModified by Organization Details LastModified Time cyclobenzap rine 10 mg tablet active Not Available Not Available Not Available ziprasidone 80 mg capsule TAKE 2 CAPSULES BY MOUTH EVERY DAY WITH MEAL FOR BIPOLAR active Not Available Not Available No t Available doxycycline hyclate 100 mg capsule 12/23 completed Not Available Not Available Not Available ammonium lactate 12 % lotion apply to feet daily as needed active Not Available Not Available No t Available atorvastati n 10 mg tablet TAKE 1 TABLET BY MOUTH ONCE DAILY active Not Available Not Available No t Available nystatin 100,000 unit/gram topical ointment active Not Available Not Available Not Available benzonatate 200 mg capsule TAKE ONE CAPSULE BY MOUTH THREE TIMES DAILY NEEDED FOR COUGH active Not Available Not Available No t Available ranitidine 300 mg tablet active Not Available Not Available Not Available urea 40 % topical cream APPLY TOPICALLY TO THE AFFECTED AREA TWICE DAILY active Not Available Not Available No t Available prednisone 20 mg tablet 12/23 completed Not Available Not Available Not Available clonazepam 0.5 mg tablet active Not Available Not Available Not Available sumatriptan 50 mg tablet active Not Available Not Available Not Available penicillin V potassium 500 mg tablet 05/11 completed Not Available Not Available Not Available phentermine 37.5 mg tablet active Not Available Not Available Not Available prazosin 5 mg capsule TAKE 1 CAPSULE BY MOUTH EVERY DAY AT BEDTIME FOR PTSD active Not Available Not Available No t Available amoxicillin 875 mg tablet TAKE 1 TABLET BY MOUTH TWICE DAILY UNTIL ALL TAKEN 12/23 completed Not Available Not Available Not Available citalopram 20 mg tablet TAKE 1 TABLET BY MOUTH EVERY DAY IN THE MORNING active Not Available Not Available No t Available prednisolon e acetate 1 % eye drops,suspe nsion 12/23 completed Not Available Not Available Not Available trazodone 100 mg tablet TAKE 2 TABLETS BY MOUTH EVERY DAY AT DINNER FOR SLEEP active Not Available Not Available No t Available benzonatate 100 mg capsule TAKE 1 CAPSULE BY MOUTH THREE TIMES DAILY NEEDED FOR COUGH 12/23 completed Not Available Not Available Not Available cephalexin 500 mg capsule 01/01 completed Not Available Not Available Not Available erythromyci n 5 mg/gram (0.5 %) eye ointment 12/23 completed Not Available Not Available Not Available trazodone 150 mg tablet TAKE 1 TABLET BY MOUTH EVERY DAY AT DINNER 12/23 completed Not Available Not Available Not Available oseltamivir 75 mg capsule active Not Available Not Available Not Available triamcinolo ne acetonide 0.1 % topical ointment 12/23 completed Not Available Not Available Not Available omeprazole 20 mg capsule,del ayed release TAKE 1 CAPSULE BY MOUTH DAILY active Not Available Not Available No t Available lisinopril 5 mg tablet TAKE 1 TABLET BY MOUTH DAILY active Not Available Not Available No t Available furosemide 20 mg tablet TAKE 1 TABLET BY MOUTH EVERY MORNING active Not Available Not Available No t Available gabapentin 100 mg capsule TAKE 1 CAPSULE BY MOUTH TWICE DAILY active Not Available Not Available No t Available diazepam 10 mg tablet active Not Available Not Available No t Available albuterol sulfate HFA 90 mcg/actuati on aerosol inhaler INHALE 2 PUFFS BY MOUTH EVERY 6 HOURS NEEDED FOR WHEEZING active Not Available Not Available No t Available ketoconazol e 2 % topical cream active Not Available Not Available Not Available fluticasone propionate 50 mcg/actuati on nasal spray,suspe nsion SHAKE LIQUID AND USE 1 SPRAY IN EACH NOSTRIL EVERY 12 HOURS active Not Available Not Available No t Available doxycycline hyclate 100 mg tablet TAKE 1 TABLET BY MOUTH EVERY 12 HOURS FOR 7 DAYS 12/23 completed Not Available Not Available Not Available glipizide 5 mg tablet TAKE 1 TABLET BY MOUTH DAILY active Not Available Not Available No t Available prazosin 2 mg capsule TAKE 1 CAPSULE BY MOUTH EVERY DAY AT BEDTIME 12/23 completed Not Available Not Available Not Available cholecalcif leticia (vitamin D3) 1,250 mcg (50,000 unit) capsule TAKE 1 CAPSULE BY MOUTH WEEKLY active Not Available Not Available No t Available Voltaren 1 % topical gel APPLY 2 GRAMS TO THE the bilateral feet up to 3 times per day active Not Available Not Available No t Available Trulicity 1.5 mg/0.5 mL subcutaneou s pen injector ADMINISTE R 1.5 MG UNDER THE SKIN EVERY 7 DAYS 12/23 completed Not Available Not Available Not Available Trulicity 0.75 mg/0.5 mL subcutaneou s pen injector ADMINISTE R 0.75 MG UNDER THE SKIN EVERY 7 DAYS 12/23 completed Not Available Not Available Not Available Trulicity 3 mg/0.5 mL subcutaneou s pen injector ADMINISTE R 3 MG UNDER THE SKIN EVERY 7 DAYS 12/23 completed Not Available Not Available Not Available Trulicity 4.5 mg/0.5 mL subcutaneou s pen injector ADMINISTE R 4.5 MG UNDER THE SKIN EVERY 7 DAYS active Not Available Not Available No t Available Vitals Date Recorded Body mass index (BMI) Body height Oxygen saturation Oxygen saturation in Arterial blood by Pulse oximetry Heart rate Respiratory rate Body temperature Body weight Systolic blood pressure Diastolic blood pressure Provider Name and Address Organization Details Last Updated DateTime 1 67 kg/m2 160.02 cm 97 % 97 % 82 /min 18 /min 97.5 [degF] 489248. 92 g 130 mm[Hg] 86 mm[Hg] Not Available [facility] 3 06:08:18 Date Recorded Heart rate Respiratory rate Oxygen saturation Oxygen saturation in Arterial blood by Pulse oximetry Provider Name and Address Organization Details Last Updated DateTime 01/16/2023 100 /min 20 /min 98 % 98 % Sarah Beth Riddle [facility] 3 15:56:27 Date Recorded Body height Body mass index (BMI) Body weight Heart rate Respiratory rate Body temperature Oxygen saturation Oxygen saturation in Arterial blood by Pulse oximetry Systolic blood pressure Diastolic blood pressure Provider Name and Address Organization Details Last Updated DateTime 5 157.48 cm 78.6 kg/m2 567911. 72 g 100 /min 18 /min 98 [degF] 98 % 98 % 130 mm[Hg] 80 mm[Hg] Megan Ethan [facility] 5 17:15:33 Social History None recorded. Functional Status None recorded. Mental Status None recorded. Family History Nothing Reported. Medical History Condition Response ALLERGIES/HAYFEVER Y DEPRESSION (INCLUDING POST ) Y BACK / NECK PROBLEMS Y OBESITY Y DIABETES, TYPE Y HERPES Y HEADACHES/MIGRAINES Y HYPERTENSION Y Gynecological HistoryNo gynecological history recorded. Obstetrics History GPAL:G 0 P 0 0 0 0 Past Encounters Encounter ID Performer Location Encounter Start Date Encounter Closed Date Diagnosis/Indication Diagnosis SNOMED-CT Code Diagnosis ICD10 Code Diagnosis Note [id number] [facility] [place] [address] [place] [address] 05/13/2021 00:00:00 05/18/2021 08:51:23 [id number] [facility] [place] [address] [place] [address] 07/05/2021 00:00:00 07/05/2021 14:00:19 [id number] [facility] [place] [address] [place] [address] 10/25/2021 00:00:00 10/31/2021 19:59:32 [id number] [facility] [place] [address] [place] [address] 08/22/2022 00:00:00 08/22/2022 13:43:51 [id number] Vazquez Arrington DPM [facility] [place] [address] [address] [place] [address] 01/16/2023 15:49:03 02/10/2023 14:22:12 Peripheral neuropathy due to type 2 diabetes mellitus 2016201333 107 E11.42 Patient educated on neuropathy , diabetes, diabetic diet, and daily foot exams. Patient is to check feet daily for new wounds, blisters, redness to prevent infection and ulceration s to the feet. Patient will return to clinic in 3 months for diabetic foot workup. Fissure in skin 88419115 R23.4 x2 left heel cup Foot callus 319919296 L8 4 bilateral heel callus without infectionD ebrided without incident Morbid obesity 328431373 E66.01 Recommend weight loss [id number] Vazquez Arrington DPM [facility] [place] [address] [address] [place] [address] 08/08/2024 12:17:05 08/08/2024 14:34:04 Peripheral neuropathy due to type 2 diabetes mellitus 7785880986 107 E11.42 Patient educated on neuropathy , diabetes, diabetic diet, and daily foot exams. Patient is to check feet daily for new wounds, blisters, redness to prevent infection and ulceration s to the feet. Patient will return to clinic in 3 months for diabetic foot workup. Diabetes mellitus 256463 09 E11.40 continued diabetic control per PCP recommenda tions Morbid obesity 444842513 E66.01 Recommend weight loss Dystrophia unguium 10990 009 L60.3 nails debrided without incident Foot callus 794107069 L8 4 left footrecomm end pumice stone and urea lotion daily to keep the areas filed downRecomm end supportive shoe gear to reduce friction or breakdown callus formation [id number] Vazquez Arrington DPM [facility] [place] [address] [place] [address] 12/23/2024 16:36:15 12/31/2024 14:58:22 Non-pustular psoriasis of hands and feet 092709777 L40.9 Referral rheumatolo gy Diabetes mellitus 841005 09 E11.40 continued diabetic control per PCP recommenda tions Dystrophia unguium 59649 009 L60.3 nails debrided without incident Foot callus 110418032 L8 4 left footrecomm end pumice stone and urea lotion daily to keep the areas filed downRecomm end supportive shoe gear to reduce friction or breakdown callus formation Health Concerns Section Related Observation LastModified by Organization Detai ls LastModified Time None Recorded Concern Status LastModified by Organization Details LastModified Time None Recorded Advance Directives Directive None Recorded Payers Encounter Date Sequence Insurance Name Policy Number Policy Chen Covered Member ID Chen Member ID Guarantor Name 01/16/2023 1 [facility] [id number] 0003 [place] [id number] [place] 08/08/2024 1 [facility] [id number] 0003 [place] [id number] [place] 12/23/2024 1 [facility] [id number] [place] [id number] [employer] [place] Notes Date Note Type Note Provider Name and Address Organization Details Recorded Time 01/16/2023 text/html . Patient is a 42-year-old female morbidly obese diabetic who returns to the office for diabetic foot exam. Patient states that she has pain to her heel secondary to chronic callusing and heel fissures of the left heel. Patient denies any open wounds or signs of infection. Patient states that she does wear clog style shoes as it is hard for her to get her shoes on secondary to her obesity and ability to bend over. Patient denies any calf pain. Patient denies any wounds to the foot. Patient denies any other pedal complaints. Vazquez Arrington DPM [address], [place], [address], [employer] 02/10/2023 12:32:42 08/08/2024 text/html . Patient is a 44-year-old female morbidly obese who returns the office for follow-up on diabetic foot care. Patient states overall she is doing well she denies any open wounds or infection. Patient states her toenails are long would like have them cut she has significant callusing to the left heel and medial great toe. Patient wears slip-on shoes she can not bend over to cut them which is causing increased callus material to the foot. Patient is high risk for developing wounds due to these conditions. Patient was told to utilize a pumice stone and urea lotion levq-alq-nqieldw to this area. Patient denies any other complaints. Vazquez Arrington DPM [address], [place], [address], [employer] 08/08/2024 14:08:47 12/23/2024 text/html . Patient is a 44-year-old morbidly obese diabetic who returns the office for follow-up on significant callusing and fissuring of the left heel. Patient states she has been using [id number] urea she states that it has not helped. Patient also has this fissuring to the great toe. Patient states she has difficulty reaching her feet due to her obesity. Patient states her nails are long like to have them cut she denies any open wounds or infection to her feet. Patient denies any other complaints. Vazquez Arrington DPM [address], [place], [address], [employer] 12/26/2024 09:12:02 OBGyn Episode No OBEpisode recorded.
--- OUTSIDE RECORDS SUMMARY | 2025-02-19 15:28 | XMS_ITS | CONTINUITY OF CARE DOCUMENT ---
Author Name lakeshia asher Address Unknown Organization [facility] Address [address] [address] [place] [address] Phone [phone] Care Team Providers Care Technical Clerk Name Role Phone Abelino Cook MD Unavailable [phone] ARTEMIO DUGAN DO Unavailable INSURANCE PROVIDERS Payer name Policy type / Coverage type [employer] party ID DANIEL MEDICAID (2) Medicaid [id number]
--- OUTSIDE RECORDS SUMMARY | 2025-02-19 15:28 | XMS_ITS | Clinical Summary ---
Author Organization [facility] Medical Office Building B Address [address] [place] [address] Care Team Providers Care Brick Catcher Name Role Phone RichardTeresa DO Unavailable [phone] Parker Yo DO Unavailable [phone] Vazquez Arrington DPM Unavailable [phone] Brayden Alexandre MD Primary Care Provider [phone] Autumn Washington MD Unavailable [phone] Allergies Active Allergy Reactions Criticality Noted Date [...] fluticasone propionate (FLONASE) 50 mcg/actuation nasal spray 11/13/202 3 Active diclofenac sodium (Voltaren) 1 % [...] without long-term current use of insulin (HCC) Inject 0.5 mL (4.5 mg total) under [...] 25 Assessment & Plan (12/09/2024 10:24 AM SAMPLE WEAVER): Recommend fluids, rest, humidification if needed. She [...] 01/19/2023 Assessment & Plan (01/19/2023 8:58 AM SAMPLE WEAVER): Given their past success the patient would [...] 01/15/2023 Assessment & Plan (01/14/2025 1:44 PM SAMPLE WEAVER): Chronic. Uncontrolled. Goal: 120lb Recommend Nutritional every other Monday Seminar. Recommended Medication : Cont. Phentermine. Cont. Truliicty at 4.5mg weekly. Follow through Weight loss surgery Need fasting blood work. Tinea pedis 08/22/2022 Dry skin 12/31/2020 Lumbar radiculopathy 05/27/2019 Encounters Date Type Department Care Team Description 02/17/2025 Orders Only [facility] Medical [facility] Family Medicine at [place] [address] [place] [address] Brayden Alexandre MD 02/04/2025 11:28 AM CDT - 02/04/2025 11:59 PM CDT Hospital Encounter [facility] Nuclear Medicine [address] [place] [address] Discharge Disposition: Discharge to home or self care 02/04/2025 11:28 AM CDT - 02/04/2025 11:59 PM CDT Hospital Encounter [facility] Nuclear Medicine [address] [place] [address] Nessa Mckeon MD Discharge Disposition: Discharge to home or self care 02/04/2025 11:28 AM CDT - 02/04/2025 11:59 PM CDT Hospital Encounter [facility] Nuclear Medicine [address] [place] [address] Discharge Disposition: Discharge to home or self care 02/04/2025 11:27 AM CDT - 02/04/2025 11:59 PM CDT Hospital Encounter [facility] Nuclear Medicine [address] [place] [address] Swelling of lower extremity; Dyspnea on exertion; Abnormal EKG; Morbid obesity with BMI of 70 and over, adult (HCC) Discharge Disposition: Discharge to home or self care 02/04/2025 10:12 AM CDT - 02/04/2025 11:59 PM CDT Hospital Encounter [facility] OP Cardiac Testing [address] [place] [address] Swelling of lower extremity; Dyspnea on exertion; Abnormal EKG; Morbid obesity with BMI of 70 and over, adult (HCC) Discharge Disposition: Discharge to home or self care 01/24/2025 11:15 AM CDT Office Visit [facility] Pain Management [address] [place] [address] Jon Colunga, PhD Morbid obesity [...] Hyperlipidemia, unspecified hyperlipidemia type 01/18/2025 Results Follow-Up [facility] Family Medicine at [place] [address] [place] [address] Brayden Alexandre MD 01/17/2025 9:15 AM SAMPLE WEAVER Office Visit [facility] Cardiology [address] [place] [address] Nessa Mckeon MD Dyspnea on exertion (Primary Dx); Swelling of lower extremity; Essential hypertension, benign; Abnormal EKG; Morbid obesity with BMI of 70 and over, adult (HCC) 01/16/2025 9:15 AM SAMPLE WEAVER Lab [facility] Medical [facility] Outpatient Lab at [address] [address] Abnormal weight gain (Primary Dx) 01/16/2025 9:06 AM SAMPLE WEAVER - 01/16/2025 11:59 PM SAMPLE WEAVER Hospital Encounter [address] [address] Type 2 diabetes mellitus without complication, without long-term current use of insulin (HCC); Dyslipidemia; Type 2 diabetes mellitus without complication, without long-term current use of insulin ([facility]) Discharge Disposition: Discharge to home or self care 01/14/2025 1:00 PM SAMPLE WEAVER Office Visit [facility] Family Medicine at [address] [place] [address] Brayden Alexandre MD Encounter for annual health [...] episode of recurrent major depressive disorder (HCC) 01/14/2025 Orders Only [facility] Family Medicine at [address] [place] [address] Brayden Alexandre MD Type 2 diabetes mellitus without complication, without long-term current use of insulin (HCC) (Primary Dx); Dyslipidemia 01/13/2025 Telephone [facility] Family Medicine at [address] [place] [address] Brayden Alexandre MD verification of PCP 01/12/2025 Orders Only [facility] Health Information Management [address] [place] [address] Brayden Alexandre MD 01/02/2025 Telephone [facility] Medicine at [address] [place] [address] Brayden Alexandre MD Medical Question/Miscellaneou s 12/09/2024 10:30 AM SAMPLE WEAVER Telemedicine [facility] Virtual Care [address] [place] [phone] Ashley Pineda NP Viral upper respiratory tract infection (Primary Dx) 12/09/2024 Nurse Triage [facility] Family Medicine at [address] [place] [address] Brayden Alexandre MD 12/05/2024 Telephone [facility] Medicine at [address] [place] [address] Brayden Alexandre MD Symptom Based Call from Last 3 Months Surgical History Surgery Date Site/Laterality Comments TYMPANOSTOMY TUBE PLACEMENT Bilateral TUBAL LIGATION 11/13/2007 - 11/12/2008 UMBILICAL HERNIA REPAIR Medical History Medical History Date Comments PCOS (polycystic ovarian syndrome) PTSD (post-traumatic stress disorder) Bipolar 2 disorder (HCC) Depression Asthma Sleep apnea Morbid obesity (HCC) Hypertension Diabetes mellitus (HCC) Headache Type 2 diabetes mellitus (HCC) Low back pain GERD (gastroesophageal reflux disease) Lymphedema Family History Medical History Relation Name Comments Mental illness Brother Hima Garcia Paranoid schitz Brother Hima Garcia Glaucoma Father Heart disease Father Arthritis Mother Livia Field Cancer Mother Livia Field Depression Mother Livia Field Sleep apnea Mother Livia Field Cancer Niece Breast cancer Diabetes Niece Sleep apnea Son Will Camp Relation Name Status Comments Brother Hima Garcia Father Mother Liviaabdias Ruiz Niece Son Will Camp Social History Tobacco Use Types Packs/Day Years [...] on file Legal Sex Female 10:03 AM SAMPLE WEAVER Gender Identity Not on file Sexual Orientation Not on file Obstetrics History Last Filed Vital Signs Vital Sign Reading Time Taken Comments Blood Pressure 122/80 01/17/2025 10:34 AM SAMPLE WEAVER Pulse 96 01/17/2025 10:34 AM SAMPLE WEAVER Temperature 36.2 C (97.2 F) 10/15/2024 2:43 PM SAMPLE WEAVER Respiratory Rate 18 01/14/2025 1:01 PM SAMPLE WEAVER Oxygen Saturation 98% 01/17/2025 10: 34 AM SAMPLE WEAVER Inhaled Oxygen Concentration - - Weight 190.4 kg (419 lb 12.8 oz) 2024 10:34 AM SAMPLE WEAVER Height 157.5 cm (5' 2 ) 01/17/2025 10:3 4 AM SAMPLE WEAVER Body Mass Index 76.78 01/17/2025 10:34 AM SAMPLE WEAVER Plan of Treatment Health Maintenance Due Date Last Done Comments Breast Cancer Screening-Mammogram 1982 Cervical Cancer Screening 1982 Hemoglobin A1C 1982 Hepatitis C Screening 1982 Foot Exam 1982 DTaP/Tdap/Td Vaccine (1 - Tdap) 1993 Varicella Vaccines (1 of 2 - 13+ 2-dose series) 1995 Hepatitis B Screening 2000 Pneumococcal vaccine <65 (1 of 2 - PCV) 2001 Covid-19 Vaccine (4 - 2023-2 5 season) 2024 12/02/2021, 05/30/2021, 05/09/2021 Influenza Vaccine (Season Ended) 2025 Depression Screening 01/14/2026 01/14/2025, 12/28/2023 Regular Well Visit/Exam 18-64 01/14/2026 01/14/2025 Albumin Creatinine Ratio, Urine 01/16/2026 01/16/2025 Lipid Panel 01/16/2026 01/16/2025 eGFR 01/16/2026 01/16/2025 Dilated Eye Exam 02/07/2027 02/07/2025 HPV Vaccines Aged Out No longer eligi ble based on patient's age to complete this topic Procedures Procedure Name Priority Date/Time Associated Diagnosis Comments DIABETIC EYE EXAM Routine 02/07/2025 5:0 5 PM CDT STRESS TEST FOR DUAL READ Schedule Routine, Read Routine (OP Routine) 02/04/2025 2:45 PM CDT Swelling of lower extremity Dyspnea on exertion Abnormal EKG Morbid obesity with BMI of 70 and over, adult (HCC) NM MPI SPECT (REST AND/OR STRESS) MULTIPLE STUDIES Schedule Routine, Read Routine (OP Routine) 02/04/2025 2:45 PM CDT Swelling of lower extremity Dyspnea on exertion Abnormal EKG Morbid obesity with BMI of 70 and over, adult (HCC) TRANSTHORACIC ECHO (TTE) COMPLETE W DOPPLER/CF WO CONTRAST Routine 02/04/2025 11:06 AM CDT Swelling of lower extremity Dyspnea on exertion Abnormal EKG Morbid obesity with BMI of 70 and over, adult (HCC) ECG 12-LEAD Routine 01/17/2025 10:27 AM SAMPLE WEAVER Swelling of lower extremity EGFR Routine 01/16/2025 8:25 PM SAMPLE WEAVER Type 2 diabetes mellitus without complication, without long-term current use of insulin (HCC) DIFFERENTIAL AUTO Routine 01/16/2025 8:2 5 PM SAMPLE WEAVER Type 2 diabetes mellitus without complication, without long-term current use of insulin (HCC) TSH Routine 01/16/2025 8:25 PM SAMPLE WEAVER Type 2 diabetes mellitus without complication, without long-term current use of insulin (HCC) LIPID PANEL Routine 01/16/2025 8:25 PM SAMPLE WEAVER Dyslipidemia COMPREHENSIVE METABOLIC PANEL Routine 01/16/2025 8:25 PM SAMPLE WEAVER Type 2 diabetes mellitus without complication, without long-term current use of insulin (HCC) CBC WITH AUTO DIFFERENTIAL Routine 01/16/2025 8:25 PM SAMPLE WEAVER Type 2 diabetes mellitus without complication, without long-term current use of insulin (HCC) ALBUMIN CREATININE RATIO, URINE Routine 01/16/2025 9:06 AM SAMPLE WEAVER Type 2 diabetes mellitus without complication, without long-term current use of insulin (HCC) SCAN - RADIOLOGY/IMAGING 01/12/2025 from Last 3 Months Results * Diabetic Eye Exam (02/07/2025 5:05 PM CDT) Historical Provider [facility] Final Result * NM MPI SPECT (Rest and/or Stress) Multiple Studies (02/04/2025 2:45 PM CDT) Anatomical Region Laterality Modality Body N/A Nuclear Medicine Narrative 02/04/2025 5:56 PM CDT Patient Id: Tawana Garcia is a 44 y.o. female. MR#: [id number] Study date: 02/04/2025 Report of the nuclear [...] noted. Gated images demonstrates normal wall motion. <40 mg/dL Ages > or = 20 years Desirable: >or= 60 mg/dL Low: <40 mg/dL Literature References: 1. Expert Panel on Integrated Guidelines for Cardiovascular Health and Risk Reduction in Children and Adolescents. Pediatrics 2011;128:S213 2. NCEP Expert Panel. Circulation 2004;110:227 Current Interpretive Data was last revised on 2018. LDL, calculated 89 <=129 mg/dL [facility] BAKER Comment: Interpretive Data Ages < or = 19 years Acceptable: <110 mg/dL Borderline high: 110-129 mg/dL High: >or= 130 mg/dL Ages > or = 20 years Optimal: <100 mg/dL Near optimal: 100-129 mg/dL Borderline high: 130-159 mg/dL High: >160 mg/dL Calculated using the Harry LDL-C estimating equation. This equation was implemented on 2024. Prior to this date LDL-C was estimated using the Friedewald equation. Literature References: 1. Expert Panel on Integrated Guidelines for Cardiovascular Health and Risk Reduction in Children and Adolescents. Pediatrics 2011;128:S213 2. NCEP Expert Panel. Circulation 2004;110:227 3. Harry Freeman et al. KRYSTAL Cardiol. 2020 March 13;5(5):540-548. doi: 10.1001/jamacardio.2020.0013 Current Interpretive Data was last revised on 2024. Non-HDL Cholesterol 104 mg/dL [facility]ESUS Comment: Interpretive Data Ages < [...] last revised on 2018. Chol/HDL ratio 3 [facility]US Blood 01/16/2025 8:25 PM SAMPLE WEAVER 01/16/2025 8:25 PM SAMPLE WEAVER us Brayden Alexandre MD LAB BLOOD ORDERABLES Final Resul t Performing Organization Address [facility] Co de Phone Number JESUS BAKER [address] [place] [email or web address] [address] * Comprehensive metabolic panel (01/16/2025 8:25 PM SAMPLE WEAVER) Sodium 138 135 - 145 mmol/L Potassium, pl 4.4 3.3 - 4.9 mmol/L [facility] Chloride 102 97 - 110 mmol/L [facility]ERNER [...] classification and Diagnosis of Diabetes Diabetes Care 202; 46: S19-S40. Current interpretive data was last revised 2022. Calcium 9.3 8.5 - 10.3 mg/dL [facility] Bilirubin, total 0.7 0.1 - 1.2 mg/dL [facility] Protein, pl 7.4 6.5 - 8.5 g/dL [facility] Albumin 4.0 3.5 - 5.0 g/dL [facility] Alk phos 100 40 - 130 Units/L [facility] ALT 13 7 - 45 Units/L [facility] AST 23 10 - 45 Units/L [facility] Blood 01/16/2025 8:25 PM SAMPLE WEAVER 01/16/2025 8:25 PM SAMPLE WEAVER Brayden Alexandre MD LAB BLOOD ORDERABLES Final Resul t Performing Organization Address [facility]/ZIP Co de Phone Number JESUS BAKER [address] [place] [address] * Albumin Creatinine Ratio, Urine (01/16/2025 9:06 AM SAMPLE WEAVER) Albumin Ur 25.1 mg/L Comment: Interpretive Data No reference range established. Current interpretive data was last revised 2019. Creatinine Ur 268.8 mg/dL [facility] Comment: Interpretive Data No reference range established. Current interpretive data was last revised 2019. Albumin Creatinine Ratio, Ur 9 1 - 29 mg/g [facility] Urine 01/16/2025 9:06 AM SAMPLE WEAVER 01/16/2025 8:25 PM SAMPLE WEAVER Brayden Alexandre MD LAB URINE ORDERABLES Final Resul t [facility] [address] Department [place] [address] * SCAN - RADIOLOGY/IMAGING (01/12/2025) Anatomical Region Laterality Modality Other Brayden Alexandre MD Final Result from Last 3 Months Insurance [facility] Care Teams Brick Catcher Relationship Specialty Start Date End Date Brayden Alexandre MD [address] [place] [address] PCP - General Family Medicine 12/05/24 Teresa Ramos DO Family Medicine 01/09/23 Parker Yo DO Internal Medicine 01/09/23 Vazquez Arrington DPM [address] [place] [address] Podiatry 01/19/23 Autumn Washington MD [address] [place] [address] Consulting Physician Psychiatry 01/14/25 Calculated ejection fraction is 73% and TID [...] Garcia is a 44 y.o. female. MR#: [id number] Study date:02/04/2025 Indications: Patient adult female who [...] 02/04/2025 This report was transcribed using the Film[employer] voice recognition system without human roll slicing machine tender. In an effort to expedite patient care, this report has not been adjusted for typographical, grammatical, and syntax by a trained medical consultant. Despite proof reading there may be errors. Please contact me if you have any questions. Procedure Note Nessa Mckeon MD - 02/04/2025 Patient Id: Tawana Garcia is a 44 y.o. female. MR#: [id number] Study date:02/04/2025 Indications: Patient adult female who [...] 02/04/2025 This report was transcribed using the [employer] voicerecognition system without human roll slicing machine tender. In an effort toexpedite patient care, this [...] AM Ht(Inch): 62 Wt(Lb): 419.01 BSA: 2.88 Panel Monitor: Nargis Alvarez RDCS Order Provider: NESSA MCKEON Heart Rate: 92 BMI: 76.63 BP: 122 / 80 Ref Provider: NESSA MCKEON PROCEDURES: Echocardiographic Report: ([id number]) Transthoracic complete echo, 2D, spectral and tissue [...] AM Ht(Inch): 62 Wt(Lb): 419.01 BSA: 2.88 Panel Monitor: Nargis Alvarez RDCS Order Provider: NESSA MCKEON Heart Rate: 92 BMI: 76.63 BP: 122 / 80 Ref Provider: NESSA MCKEON PROCEDURES: Echocardiographic Report: ([id number]) Transthoracic complete echo, 2D,spectral and tissue Doppler, [...] Diam2.00 cm LV Mass 2D 229.68 g LAURA Vmax2.54 cm2 LV Mass Index 2D 79.75 [...] any testing performed. Electronically Signed By: Nessa Mckoen MD 02/04/2025 10:20:40 PM CDT us Nessa Mckeon MD CV ECHO PROCEDURES Final Re sult * ECG 12 lead (01/17/2025 10:27 AM SAMPLE WEAVER) us Nessa Mckeon MD ECG ORDERABLES Final Resul t * eGFR (01/16/2025 8:25 PM SAMPLE WEAVER) eGFR >90 >=60 mL/min/1. 73 m2 Comment: [...] last reviewed 2021. Blood 01/16/2025 8:25 PM SAMPLE WEAVER 01/16/2025 8:26 PM SAMPLE WEAVER us Brayden Alexandre MD LAB BLOOD ORDERABLES Final Resul t [facility] [address] Department [place] [address] * Differential, auto (01/16/2025 8:25 PM SAMPLE WEAVER) Neutrophil abs 5.6 1.5 - 6.5 K/cumm Imm gran abs 0.0 0.0 - 0.1 K/cumm [facility] Lymphocyte abs 2.0 0.8 - 3.3 K/cumm [facility] Monocyte abs 0.5 0.2 - 0.8 K/cumm [facility] Eosinophil abs 0.1 0.0 - 0.5 K/cumm [facility] Basophil abs 0.0 0.0 - 0.1 K/cumm [facility] Neutrophil pct 67.1 % [facility] Comment: Interpretive Data Percent cell count reference ranges are not reported, since discordance with absolute values may lead to misinterpretation of CBC data. Current Interpretive Data was last revised on 2018. Imm gran pct 0.4 % [facility] Comment: Interpretive Data Percent cell count reference ranges are not reported, since discordance with absolute values may lead to misinterpretation of CBC data. Current Interpretive Data was last revised on 2018. Lymphocyte pct 24.3 % [facility] Comment: Interpretive Data Percent cell count reference ranges are not reported, since discordance with absolute values may lead to misinterpretation of CBC data. Current Interpretive Data was last revised on 2018. Monocyte pct 6.2 % [facility] Comment: Interpretive Data Percent cell count reference ranges are not reported, since discordance with absolute values may lead to misinterpretation of CBC data. Current Interpretive Data was last revised on 2018. Eosinophil pct 1.5 % [facility] Comment: Interpretive Data Percent cell count reference ranges are not reported, since discordance with absolute values may lead to misinterpretation of CBC data. Current Interpretive Data was last revised on 2018. Basophil pct 0.5 % [facility] Comment: Interpretive Data Percent cell count reference ranges are not reported, since discordance with absolute values may lead to misinterpretation of CBC data. Current Interpretive Data was last revised on 2018. Blood 01/16/2025 8:25 PM SAMPLE WEAVER 01/16/2025 8:25 PM SAMPLE WEAVER us Brayden Alexandre MD LAB BLOOD ORDERABLES Final Resul t [facility] [address] Department [place] [address] * (ABNORMAL) CBC with auto differential (01/16/2025 8:25 PM SAMPLE WEAVER) WBC 8.3 3.8 - 9.9 K/cumm Hgb 12.2 11.9 - 15.5 g/dL [facility] Hct 39.9 35.6 - 45.5 % [facility] Plt 251 150 - 400 K/cumm [facility] MPV 12.2 9.1 - 12.3 fL [facility] RBC 4.14 3.90 - 5.20 M/cumm [facility] MCV 96.4 81.3 - 96.4 fL [facility] MCH 29.5 27.1 - 33.3 pg [facility] MCHC 30.6(L) 32.3 - 35.7 g/dL [facility] RDW CV 13.7 11.1 - 14.9 % [facility] RDW SD 48.8(H) 35.7 - 48.1 fL [facility] NRBC abs 0.00 0.00 - 0.01 K/cumm [facility] Blood 01/16/2025 8:25 PM SAMPLE WEAVER 01/16/2025 8:25 PM SAMPLE WEAVER Brayden Alexandre MD LAB BLOOD ORDERABLES Final Resul t Performing Organization Address City/[facility] Co de Phone Number JESUS BAKER [address] [address] [facility] [place] [address] * TSH (01/16/2025 8:25 PM SAMPLE WEAVER) Thyroid Stimulating Hormone 1.69 0.30 - 4.20 mcIUnit/mL Blood 01/16/2025 8:25 PM SAMPLE WEAVER 01/16/2025 8:25 PM SAMPLE WEAVER Brayden Alexandre MD LAB BLOOD ORDERABLES Final Resul t Performing Organization Address [facility] de Phone Number JESUS BAKER [address] [address] [place] [address] * Lipid panel (01/16/2025 8:25 PM SAMPLE WEAVER) Cholesterol 158 30 - 199 mg/dL Comment: [...] on 2018. Triglycerides 80 <=149 mg/dL JESUS BAKER Comment: Interpretive Data Ages < or = [...] on 2018. HDL 54 >=40 mg/dL J[facility]US BAKER Comment: Interpretive Data Ages < or = 19 years Acceptable: >45 mg/dL Borderline low: 40-45 mg/dL Low:
--- OUTSIDE RECORDS SUMMARY | 2025-02-19 15:28 | XMS_ITS | Clinical Summary ---
Author Organization [facility] Address [facility] [place] [address] Care Team Providers Care Pharmacovigilance Scientist Name Role Phone MarlonParker dwyer Juliet MONET Primary Care Provider [phone] Allergies Active Allergy Reactions Criticality Noted Date Comments Latex Rash Low 09/05/2018 Rash to site of latex application Metformin Rash Low 09/05/2018 Simvastatin Leg Pain 09/05/2018 Medications traZODone 150 MG tablet Take 150 mg by mouth nightly at bedtime. Active ziprasidone 80 MG capsule Take 80 mg by mouth 2 (two) times daily with meals. Active citalopram 20 MG tablet Take 20 mg by mouth daily. Active aspirin EC (ASPIRIN) 81 MG EC tablet Take 81 mg by mouth daily. Active acyclovir 200 mg capsule Take by mouth every 4 (four) hours while awake. Active Active Problems Problem Noted Date Diagnosed Date Lumbar radiculopathy 05/27/2019 Family History Medical History Relation Comments schizophrenic Brother Depression Mother Hypertension Mother Lupus Sister Relation Status Comments Brother Mother Sister Social History Tobacco Use Types Packs/Day Years Used Date Smoking Tobacco: Former Cigarettes Q uit: 08/19/2018 Smokeless Tobacco: Never Comments:Quite smoking one y ear ago. 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 [employer] Not on file Not on file N ot on file Last Filed Vital Signs Vital Sign Reading Time Taken Comments Blood Pressure 118/95 08/19/2019 2:54 PM CDT Pulse 89 08/19/2019 2:54 PM CDT Temperature 36.4 C (97.5 F) 08/19/2019 2:29 PM CDT Respiratory Rate 20 08/19/2019 2:54 PM CDT Oxygen Saturation 96% 08/19/2019 2:54 PM CDT Inhaled Oxygen Concentration - - Weight 170.6 kg (376 lb 2 oz) 08/19/2019 2:29 PM CDT Height 157.5 cm (5' 2 ) 08/19/2019 2:29 PM CDT Body Mass Index 68.79 08/19/2019 2:29 PM CDT Plan of Treatment Health Maintenance Due Date Last Done Comments Cervical Cancer Screening Pa p Smear (Age 30 to 64) Every 3 Years 1982 Annual Physical 1985 Hepatitis C 2000 DTaP, Tdap and Td Vaccines ( 1 - Tdap) 2001 Hepatitis B Vaccines (1 of 3 - 19+ 3-dose series) 2001 Cervical Cancer Screening Pa p with HPV Testing (Age 30 to 64) Every 5 Years 2012 Cervical Cancer Screening with HPV 2012 Mammogram Screening 2022 COVID-19 Vaccine ( - 2023-2 5 season) 2024 HPV Vaccines Aged Out No longer eligi ble based on patient's age to complete this topic Meningococcal B Vaccine Aged Out No l onger eligible based on patient's age to complete this topic Meningococcal Vaccine Aged Out No cat xiomara eligible based on patient's age to complete this topic Pneumococcal Vaccine: Pediat rics (0 to 5 Years) and At-Risk Patients (6 to 64 Years) Aged Out No longer eligible b ased on patient's age to complete this topic RSV Immunizations Under 20 Months Aged Out No longer eligible based on patient's age to complete this topic Insurance [employer] Care Teams Pharmacovigilance Scientist Relationship Specialty Start Date End Date Parker Yo DO [address] [place], [place] [id number] PCP - General 10/27/15
--- OUTSIDE RECORDS SUMMARY | 2025-02-19 15:28 | XMS_ITS | Encounter Summary ---
Author Organization [facility] Address [address] [place] [address] Care Team Providers Care Spinner Box Name Role Phone Lisa Ramosbeth Marielos DO Unavailable [phone] Parker Yo DO Unavailable [phone] Vazquez Arrington DPM Unavailable [phone] Brayden Alexandre MD Primary Care Provider [phone] Autmun Washington MD Unavailable [phone] Encounter Details Date Type Department Care Team (Late st Contact Info) Description 01/18/2025 Results Follow-Up [facility] Family Medicine at [address] [place] [address] Brayden Alexandre MD [address] [place] [address] [address] [place] [address] Social History Tobacco Use Types Packs/Day Years Used Date Smoking Tobacco: Former Cigarettes 0.1 22.4 2 001 - 03/21/2023 Passive Smoke Exposure: Past Comments:Pt is working towar ds quitting. She states she is smoking 2 [...] on file Legal Sex Female 10:03 AM MATERIALS INTERN Gender Identity Not on file Sexual Orientation Not on file documented as of this encounter Plan of Treatment Not on file documented as of this encounter Visit Diagnoses Not on filedocumented in this encounter Care Teams Spinner Box Relationship Specialty Start Date End Date Brayden Alexandre MD [address] [facility] [address] [address] PCP - General Family Medicine 12/05/24 Teresa Ramos DO Family Medicine 01/09/23 Parker Yo DO Internal Medicine 01/09/23 Vazquez Arrington DPM [address] [facility] [place] [address] Podiatry 01/19/23 [place] [address] [place] [id number] Consulting Physician Psychiatry 01/14/25 documented as of this encounter
== END 2025-02-19 13:49 | disposition home or self-care (01) ==
LOC: ANHIMG 13:50
PROVIDERS: PCP Family Medicine; Visit Provider Nurse Practitioner
DX: Z12.31 Encounter for screening mammogram for malignant neoplasm of breast (principal)
CPT/HCPCS: 77063; 77067

== ENCOUNTER 2025-08-13 08:51 | Emergency (ER) | payer OTHER, SELFPAY ==
--- OUTSIDE RECORDS SUMMARY | 2009-06-24 05:30 | XMS_ITS | Continuity of Care Document ---
Author Organization [facility] Address [address] [facility] [address] [place] [address] Phone Care Team Providers Care Health Records Technology Teacher Name Role Phone Mcleod OD, Malcolm Unavailable Unavailable Procedures Procedure Date Eye Exam, New Patient Refraction Advance Directives Directive Yes / No Effective Date File Name No Information Encounters Encounter Description Practice Location Reason(s) For Visit Diagnoses Date Provider Providers Copied on Encounter [facility], [address], [place], [place], [id number], [place] tel:[phone] [facility] [place] No Information 2-200 9 Mcleod OD Malcolm. [address] [facility] , [address], [place], [address], [place]. tel:[phone] Family History Family Member Type Diagnosis Age At Onset No Information Payers Payer name Insurance type Covered democrat ID Authoriza tion(s) Medicaid [facility] [id number] Social History Type Description Quantity Date Captured [...]
--- OUTSIDE RECORDS SUMMARY | 2009-06-24 05:30 | XMS_ITS | Continuity of Care Document ---
Author Organization [facility] Address [address] [place] [address] Phone Care Team Providers Care Shampooer Name Role Phone Mcleod OD, Malcolm Unavailable Unavailable Procedures Procedure Date Eye Exam, New Patient Refraction Advance Directives Directive Yes / No Effective Date File Name No Information Encounters Encounter Description Practice Location Reason(s) For Visit Diagnoses Date Provider Providers Copied on Encounter [facility], [address], [place], [place], [id number], [place] tel:[phone] [facility] [place] No Information 2-200 9 Mcleod OD Malcolm. [address] [facility] [address] , [address], [place], [address], [place]. tel:[phone] Family History Family Member Type Diagnosis Age At Onset No Information Payers Payer name Insurance type Covered republican ID Authoriza tion(s) Medicaid [facility] [id number] Social History Type Description Quantity Date Captured [...]
--- NOTE | 2025-08-13 09:12 | ED.GENADULT ---
HPI - General Adult General Chief complaint: Extremity Injury, Lower Stated complaint: stepped on a nail last night Time Seen by Provider: 08/13/25 08:54 History of Present Illness HPI narrative: 45-year-old female present to the emergency department for evaluation for an injury to the plantar surface of her left foot. Patient states she was wearing sandals and stepped on nail last night. Patient denies any other pain or injury. Patient states her tetanus is not up-to-date. Related Data Home Medications ?Medication ?Instructions ?Recorded ?Confirmed ?Last Taken ?Type blood-glucose meter (TheReadingRoomTouch #1 ea 09/26/19 05/17/24 Unknown History UltraMini kit) citalopram 20 mg tablet (Celexa) 20 mg PO DAILY 09/26/19 05/17/24 03/29/21 History trazodone 150 mg tablet 150 mg PO HS 09/26/19 05/17/24 Unknown History ziprasidone HCl 80 mg capsule 80 mg PO HS 09/26/19 05/17/24 Unknown History (Sundeep) multivitamin 1 tablet PO DAILY 03/05/21 05/17/24 Unknown History prazosin 1 mg capsule 5 mg PO QHS 12/01/23 05/17/24 Unknown History phentermine 37.5 mg tablet 18.75 mg PO DAILY 01/02/24 05/17/24 Unknown History dulaglutide 1.5 mg/0.5 mL 1.5 mg subcut WEEKLY 04/04/24 05/17/24 Unknown History subcutaneous pen injector (Trulicity) Allergies Allergy/AdvReac Type Severity Reaction Status Date / Time latex Allergy Unknown Rash Verified 01/12/25 09:13 metformin Allergy Unknown Rash Verified 01/12/25 09:13 simvastatin Allergy Unknown Cramping Verified 01/12/25 09:13 of the Muscles Review of Systems Review of Systems: All systems reviewed & are unremarkable except as noted in HPI and below PMFSH Past Medical History Medical History Left knee DJD Hyperlipidemia LDL goal <70 Pulmonary hypertension Sleep disorder Arthritis Osteoporosis Anxiety Cellulitis Excessive hunger Excessive thirst SOB (shortness of breath) Wears glasses Memory loss Light headedness Dizziness Chronic headaches Weight gain Type 2 diabetes mellitus Right wrist pain Cervicalgia Diabetes KOBI (obstructive sleep apnea) Asthma Polycystic ovarian syndrome Depression Bipolar 1 disorder Herpes Migraine Heartburn Chronic midline low back pain without sciatica Chronic pain of right knee Surgical History Surgical History H/O ventral hernia repair 03/29/21 robotic assisted repair of incarcerated periumbilical ventral hernia with 15 x 10 cm symbotex mesh in underlay position History of placement of ear tubes H/O tubal ligation BL Family History Family History Mother Depression Hypertension Sibling Breast cancer Grandparent Lung cancer Other Breast cancer Stage III Other Cancer Other Arthritis Asthma Diabetes mellitus Neuropathy Social History Social History Years smoked: 2 Smoking status: Former smoker Tobacco type: cigarettes Smoking end date: 01/31/18 Alcohol intake: never Substance use: never Substance use type: does not use Do You Feel Safe in your Home?: Yes Lack of Transportation: No Lack of Food: Never True Concerned About Future Housing: No Difficulty Paying Gas/Electric Bills: No Difficulty Paying for Meds: No Currently Unemployed: No Education: High School Diploma/GED Difficulty w/ Childcare or Family Care: No Living arrangements: with family Occupation/Education: unemployed Additional occupation/education comments: Disabled Gender identity (if verbalized by the patient): Female Spiritual care concerns: No Exam Narrative: APPEARANCE: Well appearing, no pain, no distress, well-nourished. HEAD: normocephalic, atraumatic. EYES: PERRLA/EOMI, conjunctivae clear. NOSE: Normal no drainage EARS:TMS clear with good light reflex. THROAT: Pharynx clear, no exudate. NECK: Supple. No adenopathy, no masses. RESPIRATORY: Airway patent, respirations nonlabored. Clear to auscultation bilaterally, no rales, rhonchi, wheezing. CARDIOVASCULAR: Regular rate and rhythm without murmurs rubs or gallops. ABDOMINAL: Soft, nontender, nondistended, normal bowel sounds MUSCULOSKELETAL: Moves all extremities. Strength/ROM intact, No edema, No calf tenderness. NEURO: Alert. Cranial nerves II through XII intact. Good gait. Good coordination SKIN: Puncture wound to the plantar surface of the left foot Course Vital Signs Vital signs: Vital Signs Pulse Rate 76 08/13/25 09:14 Respiratory Rate 14 08/13/25 09:14 Blood Pressure 137/87 08/13/25 09:14 Pulse Oximetry 99 08/13/25 09:14 Oxygen Delivery Room Air 08/13/25 09:14 Temperature 97.8 F 08/13/25 09:53 Pulse Rate 76 08/13/25 09:53 Respiratory Rate 16 08/13/25 09:53 Blood Pressure 127/84 08/13/25 09:53 Pulse Oximetry 95 08/13/25 09:53 Oxygen Delivery Room Air 08/13/25 09:14 Medical Decision Making MDM Narrative Medical decision making narrative: 45-year-old female per the emergency department for evaluation for left lower foot pain after stepping on a nail. Patient's tetanus was updated patient was started on Cipro in the emergency department. Patient will be discharged home with Cipro. Patient was advised to take Tylenol and ibuprofen for pain control Differential Diagnosis Differential Diagnosis: Puncture wound, foreign body, laceration Vital Signs Vital Signs: Vital Signs Pulse Rate 76 08/13/25 09:14 Respiratory Rate 14 08/13/25 09:14 Blood Pressure 137/87 08/13/25 09:14 Pulse Oximetry 99 08/13/25 09:14 Oxygen Delivery Room Air 08/13/25 09:14 Temperature 97.8 F 08/13/25 09:53 Pulse Rate 76 08/13/25 09:53 Respiratory Rate 16 08/13/25 09:53 Blood Pressure 127/84 08/13/25 09:53 Pulse Oximetry 95 08/13/25 09:53 Oxygen Delivery Room Air 08/13/25 09:14 Discharge Plan Discharge Clinical Impression: Puncture wound of foot Patient Disposition: Home Condition: Stable Instructions: Antibiotic Form, Puncture Wound in the Foot (ED) Additional Instructions: Your tetanus was updated. You were started on ciprofloxacin. Continue the antibiotic at home until completed. Have close follow-up with your primary care physician for a wound check. If you have any worsening symptoms please call or return to emergency department. Patient Language: Emirati Prescriptions: New ciprofloxacin HCl [Cipro] 500 mg tablet 500 mg PO Q12H 7 Days Qty: 14 0RF No Action ibuprofen 800 mg tablet 800 mg PO Q6H PRN (Reason: pain) Qty: 30 0RF (DME) OneTouch Ultra Blue Test Strip Strip See Rx Instructions .ROUTE .MEDSUPPLY Qty: 100 0RF Rx Instructions: As directed Trulicity 1.5 mg/0.5 mL pen injector 1.5 mg subcut WEEKLY sumatriptan succinate 50 mg tablet See Rx Instructions PO .COMPLEX Qty: 9 0RF Rx Instructions: take 1 tab at onset of headache; if no relief may repeat 1 tab after at least 2 hrs; max = 4 tabs/24 hr PO cholecalciferol (vitamin D3) 1,250 mcg (50,000 unit) capsule 1,250 mcg PO WEEKLY Qty: 8 0RF multivitamin Tablet 1 tablet PO DAILY prazosin 1 mg capsule 5 mg PO QHS phentermine 37.5 mg tablet 18.75 mg PO DAILY Rx Instructions: must administer 30 minutes before or 1-2 hours after breakfast docusate sodium [Colace] 100 mg capsule 100 mg PO BID Qty: 20 0RF cyclobenzaprine 10 mg tablet 10 mg PO TID PRN (Reason: muscle spasm) Qty: 20 0RF citalopram [Celexa] 20 mg tablet 20 mg PO DAILY ziprasidone HCl [Geodon] 80 mg capsule 80 mg PO HS (DME) blood-glucose meter [TheReadingRoomTouch UltraMini] Kit See Rx Instructions .ROUTE .MEDSUPPLY Qty: 1 Rx Instructions: As directed trazodone 150 mg tablet 150 mg PO HS (DME) lancets [OneTouch UltraSoft Lancets] Misc See Rx Instructions .ROUTE .MEDSUPPLY Qty: 200 0RF Rx Instructions: use to test blood sugar two times a day albuterol sulfate 90 mcg/actuation HFA aerosol inhaler 1 puff inhalation Q4H PRN (Reason: shortness of breath or wheezing) Qty: 8.5 2RF furosemide [Lasix] 20 mg tablet 20 mg PO QAM Qty: 30 1RF fluticasone propionate [Flonase Allergy Relief] 50 mcg/actuation spray,suspension 1 spray intranasal Q12H Qty: 16 0RF Rx Instructions: administer into each nostril omeprazole 20 mg capsule,delayed release(DR/EC) 20 mg PO DAILY Qty: 90 3RF gabapentin 100 mg capsule 100 mg PO BID Qty: 180 1RF glipizide 5 mg tablet 5 mg PO DAILY Qty: 90 1RF lisinopril 5 mg tablet 5 mg PO DAILY Qty: 90 1RF Follow-up/Referrals: PHYSICIAN NOT ON STAFF,NONSTAFF [Non-Staff]
--- OUTSIDE RECORDS SUMMARY | 2025-08-13 09:13 | XMS_ITS | Clinical Summary ---
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 Gender Identity Not on file Sexual Orientation Not on file Plan of Treatment Health Maintenance Due Date Last Done Comments Hepatitis C Virus (HCV) Screening 1982 TdaP Immunization 1982 Hepatitis B Immunization (1 of 3 - 19+ 3-dose series) 2001 Pap Smear 2003 Human Papillomavirus (HPV) Immunization (1 - 3-dose SCDM series) 2009 Cervical Cancer Screening (CCS) 2012 HPV/Cotest 2012 Influenza Immunization (#1) 2025 SARS-COV-2 Immunization ( - season) 2025 Respiratory Syncytial Virus (RSV) Immunization (Adult) (1 [...] Insurance MEDICAID [employer] Care Teams Customer Counter Representative Relationship Specialty Start Date End Date Provider, None [place] PCP - General 09/10/16
--- OUTSIDE RECORDS SUMMARY | 2025-08-13 09:13 | XMS_ITS | Clinical Summary ---
Author Organization [facility] Medical Office Building B Address [address] [place] [address] Care Team Providers Care Mottler Operator Name Role Phone RamosTeresa DO Unavailable [phone] Parker Yo DO Unavailable [phone] Vazquez Arrington DPM Unavailable Brayden Alexandre MD Primary Care Provider [phone] Autumn Washington MD Unavailable [phone] Allergies Active Allergy Reactions Criticality Noted Date [...] tablet Active docusate sodium (COLACE) 100 mg capsuleIndicatio ns:constipation Take 1 capsule (100 mg total) by mouth 2 (two) times a day Active multivitamin tablet,chewable Take by mouth Active fluticasone propionate (FLONASE) 50 mcg/actuation nasal spray 09/25/20 23 Active diclofenac sodium (Voltaren) 1 % gel Apply 2 g topically 3 (three) times a day Active albuterol HFA (PROVENTIL HFA,VENTOLIN HFA,PROAIR HFA) 90 mcg/actuation inhaler Inhale 2 puffs every 6 (six) hours as needed for wheezing 1 each 12/09/19 25 Active atorvastatin (LIPITOR) 10 mg tabletIndication s:Dyslipidemia Take 1 tablet (10 mg total) by mouth daily 90 tablet 3 01/15/20 25 026 Active furosemide (LASIX) 20 mg tabletIndication s:Swelling of lower extremity Take 1 tablet (20 mg total) by mouth daily 90 tablet 3 01/15/20 25 026 Active gabapentin (NEURONTIN) 100 mg capsuleIndicatio ns:Lumbar radiculopathy Take 1 capsule (100 mg total) by mouth 2 (two) times a day 180 capsule 3 01/15/20 25 026 Active lisinopriL (PRINIVIL,ZESTRI L) 5 mg tabletIndication s:Hypertension, essential Take 1 tablet (5 mg total) by mouth daily 90 tablet 3 01/15/20 25 026 Active omeprazole (PriLOSEC) 20 mg capsuleIndicatio ns:Gastroesophag eal reflux disease without esophagitis Take 1 capsule (20 mg total) by mouth daily 90 capsule 3 01/15/20 25 026 Active traZODone (DESYREL) 150 mg tabletIndication s:Primary insomnia Take 1 tablet (150 mg total) by mouth nightly 90 tablet 3 01/15/20 25 026 Active prazosin (MINIPRESS) 5 mg capsuleIndicatio ns:Primary insomnia Take 1 capsule (5 mg total) by mouth nightly 90 capsule 3 01/15/20 25 026 Active cyclobenzaprine (FLEXERIL) 10 mg tablet Take 1 tablet (10 mg total) by mouth 3 (three) times a day as needed for muscle spasms 01/13/20 25 Active latanoprost (XALATAN) 0.005 % ophthalmic solution Administer 1 drop into both eyes nightly 06/13/20 25 Active phentermine (ADIPEX-P) 37.5 mg tabletIndication s:Weight Loss Management for Obese Patient (BMI >= 30) Take 1 tablet (37.5 mg total) by mouth daily before breakfast 90 tablet 06/16/20 25 025 Active SUMAtriptan (IMITREX) 50 mg tablet Take 0.5 tablets (25 mg total) by mouth once as needed for migraine 9 tablet 06/16/20 25 Active dulaglutide (TRULICITY) 4.5 mg/0.5 mL pen injectorIndicati ons:Type 2 diabetes mellitus without complication, without long-term current use of insulin (HCC) Inject 0.5 mL (4.5 mg total) under the skin every 7 days 6 mL 3 06/18/20 25 026 Active citalopram (CeleXA) 40 mg tablet Take 1 tablet (40 mg total) by mouth daily 90 tablet 1 06/24/20 25 026 Active hydrOXYzine (ATARAX) 25 mg tablet TAKE 1 TABLET(25 MG) BY MOUTH TWICE DAILY NEEDED FOR ITCHING 90 tablet 08/04/20 25 Active hydrOXYzine (ATARAX) 25 mg tablet Take 1 tablet (25 mg total) by mouth 2 (two) times a day as needed for itching 90 tablet 06/24/20 25 025 Discontinued Active Problems Problem Noted Date Diagnosed Date Viral upper respiratory tract infection 12/09/19 25 Assessment & Plan (12/09/2024 10:24 AM ACCOUNT RESOLUTION ANALYST): Recommend fluids, rest, humidification if needed. She [...] 01/19/2023 Assessment & Plan (01/19/2023 8:58 AM ACCOUNT RESOLUTION ANALYST): Given their past success the patient would [...] 70 in adult 01/15/2023 Assessment & Plan (06/16/2025 11:06 AM CDT): Chronic. Uncontrolled. Goal: 120lb Recommend Nutritional every other Monday Seminar. Recommended Medication : Cont. Phentermine. Cont. Truliicty at 4.5mg weekly. Follow through Weight loss surgery Assessment & Plan (01/14/2025 1:44 PM ACCOUNT RESOLUTION ANALYST): Chronic. Uncontrolled. Goal: 120lb Recommend Nutritional every other Monday Seminar. Recommended Medication : Cont. Phentermine. Cont. Truliicty at 4.5mg weekly. Follow through Weight loss surgery Need fasting blood work. Tinea pedis 08/22/2022 Dry skin 12/31/2020 Lumbar radiculopathy 05/27/2019 Encounters Date Type Department Care Team Description 06/17/2025 Telephone [facility] Family Medicine at [address] [place] [address] Brayden Alexandre MD Prior Auth (PA on Ozempic) 06/16/2025 10:30 AM CDT Office Visit [facility] Family Medicine at [address] [place] [address] Brayden Alexandre MD Type 2 diabetes mellitus without complication, without long-term current use of insulin (HCC) (Primary Dx); Encounter for screening mammogram for malignant neoplasm of breast; Class 3 severe obesity due to excess calories with serious comorbidity and body mass index (BMI) greater than or equal to 70 in adult; Need for hepatitis C screening test 06/10/2025 9:30 AM CDT Office Visit [facility] Cardiology [address] [facility] [address] [place] [address] Ghassan Ferreira MD Swelling of lower extremity (Primary Dx); Essential hypertension, benign; Dyspnea on exertion; Morbid obesity with BMI of 70 and over, adult (HCC); Pure hypercholesterolemia from Last 3 Months Immunizations Immunization Administration Dates Next Due Influenza, Unspecified 07/14/2024(Deferred: Heather ent decision) Surgical History Surgery Date Site/Laterality Comments TYMPANOSTOMY TUBE PLACEMENT Bilateral TUBAL LIGATION 11/13/2007 - 11/12/2008 UMBILICAL HERNIA REPAIR Medical History Medical History Date Comments PCOS (polycystic ovarian syndrome) PTSD (post-traumatic stress disorder) Bipolar 2 disorder (HCC) Depression Asthma Sleep apnea Morbid obesity (HCC) Hypertension Diabetes mellitus Headache Type 2 diabetes mellitus Low back pain GERD (gastroesophageal reflux disease) [...] Status Comments Brother Hima Garcia Father Mother Livia Ruiz Niece Son Will Camp Social History [...] on file Legal Sex Female 10:03 AM ACCOUNT RESOLUTION ANALYST Gender Identity Not on file Sexual Orientation Not on file Obstetrics History Last Filed Vital Signs Vital Sign Reading Time Taken Comments Blood Pressure 123/78 06/16/2025 10:37 AM CDT Pulse 82 06/16/2025 10:37 AM CDT Temperature 36.1 C (97 F) 06/16/2025 10:37 AM CDT Respiratory Rate 14 06/16/2025 10:3 7 AM CDT Oxygen Saturation 97% 06/16/2025 10: 37 AM CDT Inhaled Oxygen Concentration - - Weight 183.4 kg (404 lb 6.4 oz) 025 10:37 AM CDT Height 157.5 cm (5' 2) 06/16/2025 10:3 7 AM CDT Body Mass Index 73.97 06/16/2025 10:37 AM CDT Plan of Treatment Health Maintenance Due Date Last Done Comments Breast Cancer Screening-Mammogram 1982 Cervical Cancer Screening 1982 Hepatitis C Screening 1982 Foot Exam 1982 DTaP/Tdap/Td Vaccine (1 - Tdap) 1993 Varicella Vaccines (1 of 2 - 13+ 2-dose series) 1995 Hepatitis B Screening 2000 HPV Vaccines (1 - 3-dose SCD M series) 2009 Covid-19 Vaccine (4 - 2024-2 6 season) 2025 12/02/2021, 05/30/2021, 05/09/2021 Influenza Vaccine (#1) 2025 Hemoglobin A1C 12/17/2025 06/16/2025 Depression Screening 01/14/2026 01/14/2025, 12/28/2023 Regular Well Visit/Exam 18-64 01/14/2026 01/14/2025 Albumin Creatinine Ratio, Urine 01/16/2026 01/16/2025 Lipid Panel 01/16/2026 01/16/2025 eGFR 01/16/2026 01/16/2025 Pneumococcal vaccine <65 (1 of 2 - PCV) 06/01/2026 Postponed from 08/07 (Patient declined, but will receive in the future) Dilated Eye Exam 03/24/2027 03/24/2025, 02/07/2025 Procedures Procedure Name Priority Date/Time Associated Diagnosis Comments POCT HEMOGLOBIN A1C Routine 06/16/2025 1 1:00 AM CDT Type 2 diabetes mellitus without complication, without long-term current use of insulin (HCC) DIABETIC EYE EXAM Routine 03/24/2025 1:1 2 PM CDT EGFR Routine 01/16/2025 8:25 PM ACCOUNT RESOLUTION ANALYST Type 2 diabetes mellitus without complication, without long-term current use of insulin (HCC) LIPID PANEL Routine 01/16/2025 8:25 PM ACCOUNT RESOLUTION ANALYST Dyslipidemia ALBUMIN CREATININE RATIO, URINE Routine 01/16/2025 9:06 AM ACCOUNT RESOLUTION ANALYST Type 2 diabetes mellitus without complication, without long-term current use of insulin (HCC) from Last 3 Months or Most Recently Relevant to Health Maintenance Results * (ABNORMAL) POCT hemoglobin A1c (06/16/2025 11:00 AM CDT) Hemoglobin A1C, POC 7.3(A) 4.0 - 5.6 % Blood 06/16/2025 11:0 0 AM CDT Brayden Alexandre MD POINT OF CARE TEST ORDERABLES Fi nal Result * Diabetic Eye Exam (03/24/2025 1:12 PM CDT) Danis Olvera MD HEALTH MAINTENANCE Final Result * eGFR (01/16/2025 8:25 PM ACCOUNT RESOLUTION ANALYST) eGFR >90 >=60 mL/min/1. 73 m2 Comment: [...] last reviewed 2021. Blood 01/16/2025 8:25 PM ACCOUNT RESOLUTION ANALYST 01/16/2025 8:26 PM ACCOUNT RESOLUTION ANALYST us Brayden Alexandre MD LAB BLOOD ORDERABLES Final Resul t JESUS [id number] [facility] Department [place] [address] * Lipid panel (01/16/2025 8:25 PM ACCOUNT RESOLUTION ANALYST) Cholesterol 158 30 - 199 mg/dL Comment: [...] on 2024. Non-HDL Cholesterol 104 mg/dL JESUS BAKER Comment: Interpretive Data Ages [...] revised on 2018. Chol/HDL ratio 3 J[facility] BAKER Blood 01/16/2025 8:25 PM ACCOUNT RESOLUTION ANALYST 01/16/2025 8:25 PM ACCOUNT RESOLUTION ANALYST us Brayden Alexandre MD LAB BLOOD ORDERABLES Final Resul t JESUS BAKER [id number] [address] Department [place] [address] * Albumin Creatinine Ratio, Urine (01/16/2025 9:06 AM ACCOUNT RESOLUTION ANALYST) Albumin Ur 25.1 mg/L Comment: Interpretive Data No reference range established. Current interpretive data was last revised 2019. Creatinine Ur 268.8 mg/dL JESUS BAKER Comment: Interpretive Data No reference range established. Current interpretive data was last revised 2019. Albumin Creatinine Ratio, Ur 9 1 - 29 mg/g J[facility]US BAKER Urine 01/16/2025 9:06 AM ACCOUNT RESOLUTION ANALYST 01/16/2025 8:25 PM ACCOUNT RESOLUTION ANALYST us Brayden Alexandre MD LAB URINE ORDERABLES Final Resul t JESUS [id number] [address] Department [place] [address] from Last 3 Months or Most Recently Relevant to Health Maintenance Insurance [facility] Care Teams Mottler Operator Relationship Specialty Start Date End Date Brayden Alexandre MD [address] [place] [address] PCP - General Family Medicine 12/05/24 Teresa Ramos DO Family Medicine 01/09/23 Parker Yo DO Internal Medicine 01/09/23 Vazquez Arrington DPM [address] [place], [place] [address] [address] Podiatry 01/19/23 Autumn Washington MD [address] [place] [address] Consulting Physician Psychiatry 01/14/25
[2025-08-13 09:14] VITALS: BP 137/87; PULSE 76; RESP 14; O2SAT 99
[2025-08-13] MEDS: CIPROFLOXACIN 500 MG TAB PO (09:40)
[2025-08-13] MEDS: TETANUS,DIPHTHERIA,AC PERTUSSIS ADULT (0.5 ML) BOOSTRIX IM (09:41)
[2025-08-13 09:53] VITALS: BP 127/84; PULSE 76; RESP 16; TEMP 36.6; O2SAT 95
--- OUTSIDE RECORDS SUMMARY | 2025-08-13 09:55 | XMS_ITS | Clinical Summary ---
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
--- OUTSIDE RECORDS SUMMARY | 2025-08-13 09:55 | XMS_ITS | Clinical Summary ---
Author Organization [facility] Address [facility] [place] [address] Care Team Providers Care Photocopy Operator Name Role Phone MarlonParker dwyer Juliet MONET Primary Care Provider [phone] Allergies Active Allergy Reactions Criticality Noted Date [...] 2:29 PM CDT Height 157.5 cm (5' 2) 08/19/2019 2:29 PM CDT Body Mass Index 68.79 08/19/2019 2:29 PM CDT Plan of Treatment Health Maintenance Due Date Last Done Comments Cervical Cancer Screening Pa p Smear (Age 30 to 64) Every 3 Years 1982 Annual Physical 1985 Hepatitis C 2000 DTaP, Tdap and Td Vaccines ( 1 - Tdap) 2001 Hepatitis B Vaccines (1 of 3 - 19+ 3-dose series) 2001 HPV Vaccines (1 - 3-dose SCD M series) 2009 Cervical Cancer Screening Pa p with HPV Testing (Age 30 to 64) Every 5 Years 2012 Cervical Cancer Screening with HPV 2012 Mammogram Screening 2022 COVID-19 Vaccine ( - 2023-2 5 season) 2025 Meningococcal B Vaccine Aged Out No l onger eligible based on patient's age to complete this topic Meningococcal Vaccine Aged Out No cat xiomara eligible based on patient's age to complete this topic Pneumococcal Vaccine: Pediat rics (0 to 5 Years) and At-Risk Patients (6 to 49 Years) Aged Out No longer eligible b ased on patient's age to complete this topic RSV Immunizations Under 20 Months Aged Out No longer eligible based on patient's age to complete this topic Insurance [employer] Care Teams Photocopy Operator Relationship Specialty Start Date End Date Parker Yo DO [address] [place], [place] [id number] PCP - General 10/27/15
--- OUTSIDE RECORDS SUMMARY | 2025-08-13 09:55 | XMS_ITS | Clinical Summary ---
Author Organization [facility] Medical Office Building B Address [address] [place] [address] Care Team Providers Care Truck Loader Name Role Phone RamosTeresa DO Unavailable [phone] Parker Yo DO Unavailable [phone] Vazquez Arrington DPM Unavailable Brayden Alexandre MD Primary Care Provider [phone] Autumn Washington MD Unavailable [phone] Allergies Active Allergy Reactions Criticality Noted Date [...] 25 Assessment & Plan (12/09/2024 10:24 AM OIL BURNER TECHNICIAN): Recommend fluids, rest, humidification if needed. She [...] 01/19/2023 Assessment & Plan (01/19/2023 8:58 AM OIL BURNER TECHNICIAN): Given their past success the patient would [...] surgery Assessment & Plan (01/14/2025 1:44 PM OIL BURNER TECHNICIAN): Chronic. Uncontrolled. Goal: 120lb Recommend Nutritional every other Monday Seminar. Recommended Medication : Cont. Phentermine. Cont. Truliicty at 4.5mg weekly. Follow through Weight loss surgery Need fasting blood work. Tinea pedis 08/22/2022 Dry skin 12/31/2020 Lumbar radiculopathy 05/27/2019 Encounters Date Type Department Care Team Description 06/17/2025 Telephone [facility] Family Medicine at [address] [place] [address] Brayden Alexandre MD Prior Auth (PA on Ozempic) 06/16/2025 10:30 AM CDT Office Visit [facility] Family Medicine at [address] [place] [address] Brayden Alexandre MD Type 2 diabetes mellitus without complication, without long-term current use of insulin (HCC) (Primary Dx); Encounter for screening mammogram for malignant neoplasm of breast; Class 3 severe obesity due to excess calories with serious comorbidity and body mass index (BMI) greater than or equal to 70 in adult; Need for hepatitis C screening test 06/10/2025 9:30 AM CDT Office Visit [facility] Cardiology [address] [facility] [address] [place] [address] Ghassan Ferreira MD Swelling of lower extremity [...] on file Legal Sex Female 10:03 AM OIL BURNER TECHNICIAN Gender Identity Not on file Sexual Orientation [...] PM CDT EGFR Routine 01/16/2025 8:25 PM OIL BURNER TECHNICIAN Type 2 diabetes mellitus without complication, without long-term current use of insulin (HCC) LIPID PANEL Routine 01/16/2025 8:25 PM OIL BURNER TECHNICIAN Dyslipidemia ALBUMIN CREATININE RATIO, URINE Routine 01/16/2025 9:06 AM OIL BURNER TECHNICIAN Type 2 diabetes mellitus without complication, without [...] Final Result * eGFR (01/16/2025 8:25 PM OIL BURNER TECHNICIAN) eGFR >90 >=60 mL/min/1. 73 m2 Comment: [...] last reviewed 2021. Blood 01/16/2025 8:25 PM OIL BURNER TECHNICIAN 01/16/2025 8:26 PM OIL BURNER TECHNICIAN us Brayden Alexandre MD LAB BLOOD ORDERABLES Final Resul t JESUS [id number] [facility] Department [place] [address] * Lipid panel (01/16/2025 8:25 PM OIL BURNER TECHNICIAN) Cholesterol 158 30 - 199 mg/dL Comment: [...] 3 [facility]US BAKER Blood 01/16/2025 8:25 PM OIL BURNER TECHNICIAN 01/16/2025 8:25 PM OIL BURNER TECHNICIAN us Brayden Alexandre MD LAB BLOOD ORDERABLES Final Resul t J[facility] BAKER [id number] [address] Department [place] [address] * Albumin Creatinine Ratio, Urine (01/16/2025 9:06 AM OIL BURNER TECHNICIAN) Albumin Ur 25.1 mg/L Comment: Interpretive Data No reference range established. Current interpretive data was last revised 2019. Creatinine Ur 268.8 mg/dL JESUS BAKER Comment: Interpretive Data No reference range established. Current interpretive data was last revised 2019. Albumin Creatinine Ratio, Ur 9 1 - 29 mg/g J[facility]US BAKER Urine 01/16/2025 9:06 AM OIL BURNER TECHNICIAN 01/16/2025 8:25 PM OIL BURNER TECHNICIAN us Brayden Alexandre MD LAB URINE ORDERABLES Final Resul t JESUS [id number] [address] Department [place] [address] from Last 3 Months or Most Recently Relevant to Health Maintenance Insurance [facility] Care Teams Truck Loader Relationship Specialty Start Date End Date Brayden Alexandre MD [address] [facility] [place] [address] PCP - General Family Medicine 12/05/24 Teresa Ramos DO Family Medicine 01/09/23 Parker Yo DO Internal Medicine 01/09/23 Vazquez Arrington DPM [address] [place], [place] [address] [address] Podiatry 01/19/23 Autumn Washington MD [address] [place] [address] Consulting Physician Psychiatry 01/14/25
== END 2025-08-13 09:55 | disposition home or self-care (01) ==
LOC: ANHED 09:22
PROVIDERS: Emergency Provider Emergency Medicine
DX: S91.332A Puncture wound without foreign body, left foot, initial encounter (principal); Z23 Encounter for immunization; I27.20 Pulmonary hypertension, unspecified; E11.9 Type 2 diabetes mellitus without complications; E28.2 Polycystic ovarian syndrome; J45.909 Unspecified asthma, uncomplicated; G47.33 Obstructive sleep apnea (adult) (pediatric); M81.0 Age-related osteoporosis without current pathological fracture; M17.12 Unilateral primary osteoarthritis, left knee; F31.9 Bipolar disorder, unspecified; F41.9 Anxiety disorder, unspecified; Z87.891 Personal history of nicotine dependence; Z79.85 Long-term (current) use of injectable non-insulin antidiabetic drugs; Z79.899 Other long term (current) drug therapy; Z79.84 Long term (current) use of oral hypoglycemic drugs; W45.0XXA Nail entering through skin, initial encounter
CPT/HCPCS: 90471; 90715; 99283; A9270

== ENCOUNTER 2025-08-24 12:02 | Emergency (ER) | payer OTHER, SELFPAY ==
--- OUTSIDE RECORDS SUMMARY | 2009-06-24 05:30 | XMS_ITS | Continuity of Care Document ---
Author Organization [facility] Address [address] [place] [address] Phone Care Team Providers Care Director Translational Name Role Phone Mcleod OD, Malcolm Unavailable Unavailable Procedures Procedure Date Eye Exam, New Patient Refraction Advance Directives Directive Yes / No Effective Date File Name No Information Encounters Encounter Description Practice Location Reason(s) For Visit Diagnoses Date Provider Providers Copied on Encounter [facility], [address], [place], [place], [id number], [place] tel:[phone] [facility] [place] No Information 2-200 9 Mcleod OD Malcolm. [address] [facility] , [address], [place], [address], [place]. tel:[phone] Family History Family Member Type Diagnosis Age At Onset No Information Payers Payer name Insurance type Covered republican ID Authoriza tion(s) Medicaid [facility] [id number] Social History Type Description Quantity Date Captured Comments Sex Female Smoking Status No Information Chief Complaint And Reason For Visit No Information Reason For Referral Reason For Referral No Information History Of Present Illness Encounter Date Complaint History Of Prese nt Illness No Information Functional Status Date Functional Assessmen t No Information Instructions Date Instruction Additional Infor mation No Information Assessments Type Assessment Date No Information Patient Care Teams Name Effective Dates (start - stop) Status Members No Information
--- NOTE | ~2025-08-24 | US_ITS ---
EXAMINATION: US venous doppler LE , 08/24/2025 15:00 CDT HISTORY: L lower extremity pain, swelling and redness Comparison: None Technique: Colbert-scale and color Doppler images were attempted of the lower saphenofemoral junction, common femoral vein,superficial femoral vein, proximal deep femoral vein, proximal deep femoral vein, popliteal vein and posterior tibial veins. Findings: Deep Venous System:There is diminished flow with partial compressibility noted within the left common femoral vein, left femoral vein, the remaining visualized deep venous system unremarkable. Superficial Venous SystemNo superficial thrombophlebitis. Soft tissues: Soft tissues are unremarkable. Impression: 1. Limited study due to body habitus. Partial compressibility noted above, underlying DVT cannot be excluded Reviewed, dictated and finalized at location P. Impression: 1. Limited study due to body habitus. Partial compressibility noted above, unde rlying DVT cannot be excluded
--- NOTE | ~2025-08-24 | XR_ITS ---
Examination: XR chest 2V Clinical History: CHEST PAIN Comparison: 01/12/2025 Technique: PA and Lateral Findings: Cardiomediastinal silhouette normal size and configuration. Diffusely increased interstitial markings. No acute bony abnormality. IMPRESSION: 1. Interstitial pulmonary edema and/or pneumonitis. Reviewed, dictated and finalized at location R.
--- NOTE | ~2025-08-24 | CT_ITS ---
EXAMINATION: CTA chest PE protocol, 08/24/2025 16:05 CDT HISTORY: chest pain, shortness of breath COMPARISON: No comparisons available. TECHNIQUE: CTA examination is obtained with contrast CTA examination technique is performed with arterial phase of contrast-enhancement. 3-D reconstruction with thin MIP axial and MPR coronal imaging is provided Isovue 300, 92cc injected IV. One or more of the following dose reduction techniques were used: automated exposure control, adjustment of the mA and/or kV according to patient size, use of iterative reconstruction technique. FINDINGS: No significant coronary calcification is present ([id number]) LUNGS: Contrast bolus adequate, there is no gross pulmonary embolism identified. No tracheomalacia. No bronchiectasis. Minimal emphysematous changes. No significant pulmonary fibrotic changes. HEART AND PERICARDIUM: Within normal limits. 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 PULMONARY ARTERIES: No pulmonary embolism ADENOPATHY/MEDIASTINUM: None. LIMITED VIEWS OF THE ABDOMEN: Within normal limits. OSSEOUS STRUCTURES: No sclerotic or lytic lesions are identified. No acute fractures are demonstrated. OVERLYING SOFT TISSUES: Unremarkable. THYROID: The thyroid is unremarkable. IMPRESSION: Negative for pulmonary embolism. No acute process Reviewed, dictated and finalized at location P.
--- NOTE | 2025-08-24 12:07 | ECG_ITS ---
Test Date: 2025-08-24 12:14:49 Measurements Intervals [place] Rate: 89 P: 45 ID: 171 QRS: 35 QRSD: 97 T: 10 QT: 365 QTc: 445 Interpretive Statements SINUS RHYTHM NONSPECIFIC ST-TWAVE ABNORMALITY- INFERIOR LEADS BASELINE ARTIFACT- I, II, III, AVR, AVL, AVF BORDERLINE ECG No previous ECG available for comparison Electronically Signed On 08-24-2025 16:44:49 CDT by Ismael Valentin D.O.
[2025-08-24 12:21] VITALS: BP 144/79; PULSE 89; RESP 20; TEMP 36.4; O2SAT 100
[2025-08-24 12:22] VITALS: BP 144/79; PULSE 89; RESP 20; TEMP 36.4; O2SAT 100
[2025-08-24 12:43] LABS: Hematocrit 36.2 % (37.0-47.0); Hemoglobin 11.6 g/dL (12.0-15.0); Immature Granulocyte Percent A 0.5 % (0-0.5); Lymphocytes Absolute Auto 2.08 K/mm3 (0.9-3.2); Mean Corpuscular HGB Conc 32.0 g/dl (32-36); Mean Corpuscular Hemoglobin 28.9 pg (26-34); Mean Corpuscular Volume 90.3 fl (80-100); Nucleated Red Blood Cells Absolute Auto 0.000 K/mm3 (0.0-0.012); Nucleated Red Blood Cells Perc 0.0 % (0.0-0.2); Platelet Count Result 211 k/mm3 (150-375); Red Blood Count 4.01 M/mm3 (4.2-5.4); White Blood Count 11.0 K/mm3 (4.5-10.0)
[2025-08-24 12:54] LABS: INR 1.1; Prothrombin Time 14.4 Seconds (11.1-14.7)
[2025-08-24 12:55] LABS: Alanine Aminotransferase 17 U/L (6-35); Albumin Level 4.1 g/dL (3.5-5.1); Alkaline Phosphatase 103 U/L (38-126); Anion Gap 7 mmol/L (4-12); Aspartate Amino Transferase 23 U/L (14-36); Bilirubin,Total 0.8 mg/dL (0.2-1.3); Blood Urea Nitrogen 14 mg/dL (7-17); Calcium 9.1 mg/dL (8.4-10.2); Carbon Dioxide 27 mmol/L (22-30); Chloride 101 mmol/L (98-107); Estimated CRCL calculation 120 ml/min; Estimated Glomerular Filt Rate > 60; Glucose 171 mg/dL (65-110); Lipase 59 U/L (23-300); Partial Thromboplastin Time 30.7 Seconds (22.3-36.8); Potassium 4.4 mmol/L (3.4-5.0); Sodium 135 mmol/L (137-145); Total Protein 7.7 g/dL (6.3-8.2)
[2025-08-24 13:06] LABS: Troponin I < 0.012 ng/mL (0.000-0.034)
--- NOTE | 2025-08-24 14:49 | ECG_ITS ---
Test Date: 2025-08-24 14:59:02 Measurements Intervals [place] Rate: 83 P: 39 MN: 165 QRS: 24 QRSD: 98 T: 2 QT: 381 QTc: 449 Interpretive Statements SINUS RHYTHM BORDERLINE ST-T WAVE ABNORMALITY- ANTEROLAT/INF LEADS BASELINE ARTIFACT- I, II, III, AVR, AVL, AVF, V1-V6 BORDERLINE ECG Compared to ECG 08/24/2025 12:14:49 NO SIGNIFICANT CHANGE Electronically Signed On 08-24-2025 16:38:44 CDT by Ismael Valentin D.O.
--- NOTE | 2025-08-24 15:16 | ED.CHESTPAIN ---
HPI - Chest Pain General Chief Complaint: Chest Pain Stated Complaint: CHEST PAINS X2D, L LEG LUMP Time Seen by Provider: 08/24/25 14:47 History of Present Illness HPI narrative: Patient is a 45-year-old female who presents to the ER with chest pain that started yesterday. She also endorses left lower extremity calf pain. Patient reports she has never experienced type of chest pain before. She endorses a slight cough, but no congestion. Patient denies acute back pain, recent fevers, or wheezing. She endorses a history of PCOS, depression, anxiety, lymphedema, high blood pressure, diabetes, asthma, and neuropathy. Related Data Home Medications ?Medication ?Instructions ?Recorded ?Confirmed ?Last Taken ?Type blood-glucose meter (Ebook Glue #1 ea 09/26/19 05/17/24 Unknown History UltraMini kit) citalopram 20 mg tablet (Celexa) 20 mg PO DAILY 09/26/19 05/17/24 03/29/21 History trazodone 150 mg tablet 150 mg PO HS 09/26/19 05/17/24 Unknown History ziprasidone HCl 80 mg capsule 80 mg PO HS 09/26/19 05/17/24 Unknown History (Geodon) multivitamin 1 tablet PO DAILY 03/05/21 05/17/24 Unknown History prazosin 1 mg capsule 5 mg PO QHS 12/01/23 05/17/24 Unknown History phentermine 37.5 mg tablet 18.75 mg PO DAILY 01/02/24 05/17/24 Unknown History dulaglutide 1.5 mg/0.5 mL 1.5 mg subcut WEEKLY 04/04/24 05/17/24 Unknown History subcutaneous pen injector (Trulicity) Allergies Allergy/AdvReac Type Severity Reaction Status Date / Time latex Allergy Unknown Rash Verified 08/24/25 12:03 metformin Allergy Unknown Rash Verified 08/24/25 12:03 simvastatin Allergy Unknown Cramping Verified 08/24/25 12:03 of the Muscles Review of Systems Review of Systems: All systems reviewed & are unremarkable except as noted in HPI and below PMFSH Past Medical History Medical History Left knee DJD Hyperlipidemia LDL goal <70 Pulmonary hypertension Sleep disorder Arthritis Osteoporosis Anxiety Cellulitis Excessive hunger Excessive thirst SOB (shortness of breath) Wears glasses Memory loss Light headedness Dizziness Chronic headaches Weight gain Type 2 diabetes mellitus Right wrist pain Cervicalgia Diabetes KOBI (obstructive sleep apnea) Asthma Polycystic ovarian syndrome Depression Bipolar 1 disorder Herpes Migraine Heartburn Chronic midline low back pain without sciatica Chronic pain of right knee Surgical History Surgical History H/O ventral hernia repair 03/29/21 robotic assisted repair of incarcerated periumbilical ventral hernia with 15 x 10 cm symbotex mesh in underlay position History of placement of ear tubes H/O tubal ligation BL Family History Family History Mother Depression Hypertension Sibling Breast cancer Grandparent Lung cancer Other Breast cancer Stage III Other Cancer Other Arthritis Asthma Diabetes mellitus Neuropathy Social History Social History Years smoked: 2 Smoking status: Former smoker Tobacco type: cigarettes Smoking end date: 01/31/18 Alcohol intake: never Substance use: never Substance use type: does not use Do You Feel Safe in your Home?: Yes Lack of Transportation: No Lack of Food: Never True Concerned About Future Housing: No Difficulty Paying Gas/Electric Bills: No Difficulty Paying for Meds: No Currently Unemployed: No Education: High School Diploma/GED Difficulty w/ Childcare or Family Care: No Living arrangements: with family Occupation/Education: unemployed Additional occupation/education comments: Disabled Gender identity (if verbalized by the patient): Female Spiritual care concerns: No Exam Narrative: GENERAL: Well appearing, obese, non-toxic, in no acute distress. HEAD: Normocephalic, atraumatic. NECK: Supple. No adenopathy, no masses. RESPIRATORY: Airway patent, respirations mildly labored. Clear to auscultation bilaterally, no rales, rhonchi, wheezing. CARDIOVASCULAR: Regular rate and rhythm without murmurs, rubs, or gallops. L lower extremity redness and swelling ABDOMINAL: Soft, nontender, nondistended, no hepatosplenomegaly. Normoactive BS. MUSCULOSKELETAL: Moves all extremities. Strength/ROM intact without gross deformities. + Karrie's test SKIN: Warm, dry, normal color. No rashes. NEURO: A&O X3. Speech clear. Cranial nerves II-XII intact. No ataxic movements. PSYCHIATRIC: Appropriate mood and affect. Normal interaction. Course Vital Signs Vital signs: Vital Signs Temperature 36.4 C 08/24/25 12:21 Pulse Rate 89 08/24/25 12:21 Respiratory Rate 20 08/24/25 12:21 Blood Pressure 144/79 H 08/24/25 12:21 Pulse Oximetry 100 08/24/25 12:21 Temperature 36.4 C 08/24/25 12:22 Pulse Rate 87 08/24/25 18:19 Respiratory Rate 14 08/24/25 18:19 Blood Pressure 139/84 08/24/25 18:19 Pulse Oximetry 99 08/24/25 18:19 MDM - Chest Pain MDM Narrative Medical decision making narrative: Patient is a 45-year-old female who presents to the ER with chest pain that started yesterday. She also endorses left lower extremity calf pain. Patient reports she has never experienced type of chest pain before. She endorses a slight cough, but no congestion. Patient denies acute back pain, recent fevers, or wheezing. She endorses a history of PCOS, depression, anxiety, lymphedema, high blood pressure, diabetes, asthma, and neuropathy. Labs Ordered: CBC, CMP D-dimer, proBNP, troponin, PTT, INR, lipase Imaging Ordered: CTA chest PE protocol, left lower extremity venous ultrasound, chest x-ray Medications Ordered: Benedict p.o., GI cocktail Results: Patient's CBC indicates a white blood cell count of 11.0, red blood cell count of 4.01, hemoglobin of 11.6, hematocrit of 36.2%. Her D-dimer is 0.88. Patient's chemistry indicates a sodium of 135, glucose of 171. Her 1st and 2nd troponin were both negative. Patient's lipase was 59. For respiratory swab was negative. Patient's CT scan indicates No significant coronary calcification is present ([id number]) LUNGS: Contrast bolus adequate, there is no gross pulmonary embolism identified. No tracheomalacia. No bronchiectasis. Minimal emphysematous changes. No significant pulmonary fibrotic changes. HEART AND PERICARDIUM: Within normal limits. 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 PULMONARY ARTERIES: No pulmonary embolism ADENOPATHY/MEDIASTINUM: None. LIMITED VIEWS OF THE ABDOMEN: Within normal limits. OSSEOUS STRUCTURES: No sclerotic or lytic lesions are identified. No acute fractures are demonstrated. OVERLYING SOFT TISSUES: Unremarkable. THYROID: The thyroid is unremarkable. Patient's venous Doppler ultrasound indicates Limited study due to body habitus. Partial compressibility noted above, underlying DVT cannot be excluded Risks: HEART score: low risk HEART Score for Major Cardiac Events from [employer] on 08/24/2025 All calculations should be rechecked by clinician prior to use RESULT SUMMARY: 3 points Low Score (0-3 points) Risk of MACE of 0.9-1.7%. INPUTS: History ?> 1 = Moderately suspicious EKG ?> 0 = Normal Age ?> 0 = <45 Risk factors ?> 2 = >= risk factors or history of atherosclerotic disease Initial troponin ?> 0 = <Normal limit Wells' Criteria for DVT from [facility] [email or web address] [employer] on 08/24/2025 All calculations should be rechecked by clinician prior to use RESULT SUMMARY: 2 points Moderate risk group for DVT. See Next Steps for details. INPUTS: Active cancer ?> 0 = No Bedridden recently >3 days or major surgery within 12 weeks ?> 0 = No Calf swelling >3 cm compared to the other leg ?> 1 = Yes Collateral (nonvaricose) superficial veins present ?> 0 = No Entire leg swollen ?> 0 = No Localized tenderness along the deep venous system ?> 1 = Yes Pitting edema, confined to symptomatic leg ?> 0 = No Paralysis, paresis, or recent plaster immobilization of the lower extremity ?> 0 = No Previously documented DVT ?> 0 = No Alternative diagnosis to DVT as likely or more likely ?> 0 = No Diagnosis: Left DVT, GERD Patient Education/Shared MDM: Results of lab work and imaging shared with patient. She endorses improvement of symptoms following GI cocktail medication administration. Patient's Wells score puts her at moderate risk for a DVT and her D-dimer is mildly elevated. She will be started on Eliquis to protect her until a repeat ultrasound can be ordered and DVT can be ruled out. Patient strongly advised to follow-up with her PCP as soon as possible. She will be discharged home with a prescription for Eliquis and Pepcid. Strict return precautions provided. Patient verbalized understanding and is in agreement with plan. Vital signs stable at time of discharge. All questions answered. Differential Diagnosis Differential diagnosis: Likely atypical chest pain, st elevation myocardial infarction, costochondritis and other (GERD, DVT) Lab Data Attestation: I reviewed the patient's lab results. 08/24/25 12:07 08/24/25 12:07 Labs: Lab Results 08/24/25 08/24/25 08/24/25 Range/Units 12:07 15:00 15:38 WBC 11.0 H (4.5-10.0) K/mm3 RBC 4.01 L (4.2-5.4) M/mm3 Hgb 11.6 L (12.0-15.0) g/dL Hct 36.2 L (37.0-47.0) % MCV 90.3 (80-100) fl MCH 28.9 (26-34) pg MCHC 32.0 (32-36) g/dl RDW 13.1 (11.5-14.5) % Plt Count 211 (150-375) k/mm3 MPV 12.1 H (7.4-10.4) fl Immature Gran % (Auto) 0.5 (0-0.5) % Neut % (Auto) 75.7 H (45.5-73.1) % Lymph % (Auto) 18.9 (18.3-44.2) % Harper % (Auto) 3.7 (2.6-8.5) % Eos % (Auto) 1.0 (0-4.4) % Baso % (Auto) 0.2 (0.2-1.2) % Lymph # (Auto) 2.08 (0.9-3.2) K/mm3 Harper # (Auto) 0.4 (0.1-0.6) K/mm3 Eos # (Auto) 0.1 (0-0.3) K/mm3 Baso # (Auto) 0.0 (0.0-0.1) K/mm3 Abs Immat Gran (auto) 0.06 H (0.00-0.031) K/mm3 Absolute Neuts (auto) 8.4 H (1.3-6.7) K/mm3 Absolute Nucleated RBC 0.000 (0.0-0.012) K/mm3 Nucleated RBC % 0.0 (0.0-0.2) % PT 14.4 (11.1-14.7) Seconds INR 1.1 APTT 30.7 (22.3-36.8) Seconds D-Dimer 0.88 H (<0.48) ug/mL Sodium 135 L (137-145) mmol/L Potassium 4.4 (3.4-5.0) mmol/L Chloride 101 (98-107) mmol/L Carbon Dioxide 27 (22-30) mmol/L Anion Gap 7 (4-12) mmol/L BUN 14 D (7-17) mg/dL Creatinine 0.83 (0.7-1.0) mg/dL Estim Creat Clear Calc 120 ml/min Estimated GFR > 60 (59 - ) Glucose 171 H (65-110) mg/dL Lactic Acid 0.8 (0.7-2.0) mmol/L Calcium 9.1 (8.4-10.2) mg/dL Total Bilirubin 0.8 (0.2-1.3) mg/dL AST 23 (14-36) U/L ALT 17 (6-35) U/L Alkaline Phosphatase 103 (38-126) U/L Troponin I < 0.012 < 0.012 (0.000-0.034) ng/mL NT-Pro-B Natriuret Pep 27 (19.9-100) pg/mL Total Protein 7.7 (6.3-8.2) g/dL Albumin 4.1 (3.5-5.1) g/dL Lipase 59 (23-300) U/L Influenza A (RT-PCR) Negative (Negative) Influenza B (RT-PCR) Negative (Negative) RSV (RT-PCR) Negative (Negative) SARS-CoV-2 RNA (RT-PCR) Negative (Negative) Imaging Data Attestation: I personally reviewed and interpreted this imaging study as follows: Radiologist's impression: Impressions Chest X-Ray 08/24/25 13:04 IMPRESSION: 1. Interstitial pulmonary edema and/or pneumonitis. Venous Doppler Study 08/24/25 15:36 Impression: 1. Limited study due to body habitus. Partial compressibility noted above, underlying DVT cannot be excluded Chest CTA 08/24/25 16:47 IMPRESSION: Negative for pulmonary embolism. No acute process Discharge Plan Discharge Clinical Impression: GERD (gastroesophageal reflux disease), Left leg DVT, Atypical chest pain Patient Disposition: Home Condition: Stable Instructions: Antibiotic Form, Deep Vein Thrombosis (ED), GERD (Gastroesophageal Reflux Disease) (ED) Additional Instructions: Please return to the ER with any worsening symptoms. Follow-up with primary care provider as soon as possible for DVT follow-up. Take all medications as prescribed, including regularly scheduled medications. You may take Tylenol for pain control. Please take Pepcid in addition to your omeprazole. It is essential you follow-up regarding the blood thinners you are prescribed today. Patient Language: Afghan Prescriptions: New PriyaIdentiv DVT-PE Treat 30D Start 5 mg (74 tabs) tablets,dose pack See Rx Instructions .ROUTE .COMPLEX Qty: 74 0RF Rx Instructions: orally per package directions famotidine [Pepcid] 40 mg tablet 40 mg PO BID Qty: 60 0RF No Action ibuprofen 800 mg tablet 800 mg PO Q6H PRN (Reason: pain) Qty: 30 0RF (DME) OneTouch Ultra Blue Test Strip Strip See Rx Instructions .ROUTE .MEDSUPPLY Qty: 100 0RF Rx Instructions: As directed Trulicity 1.5 mg/0.5 mL pen injector 1.5 mg subcut WEEKLY sumatriptan succinate 50 mg tablet See Rx Instructions PO .COMPLEX Qty: 9 0RF Rx Instructions: take 1 tab at onset of headache; if no relief may repeat 1 tab after at least 2 hrs; max = 4 tabs/24 hr PO cholecalciferol (vitamin D3) 1,250 mcg (50,000 unit) capsule 1,250 mcg PO WEEKLY Qty: 8 0RF multivitamin Tablet 1 tablet PO DAILY prazosin 1 mg capsule 5 mg PO QHS phentermine 37.5 mg tablet 18.75 mg PO DAILY Rx Instructions: must administer 30 minutes before or 1-2 hours after breakfast ciprofloxacin HCl [Cipro] 500 mg tablet 500 mg PO Q12H 7 Days Qty: 14 0RF docusate sodium [Colace] 100 mg capsule 100 mg PO BID Qty: 20 0RF cyclobenzaprine 10 mg tablet 10 mg PO TID PRN (Reason: muscle spasm) Qty: 20 0RF citalopram [Celexa] 20 mg tablet 20 mg PO DAILY ziprasidone HCl [Geodon] 80 mg capsule 80 mg PO HS (DME) blood-glucose meter [Discretixuch UltraMini] Kit See Rx Instructions .ROUTE .MEDSUPPLY Qty: 1 Rx Instructions: As directed trazodone 150 mg tablet 150 mg PO HS (DME) lancets [OneTouch UltraSoft Lancets] Misc See Rx Instructions .ROUTE .MEDSUPPLY Qty: 200 0RF Rx Instructions: use to test blood sugar two times a day albuterol sulfate 90 mcg/actuation HFA aerosol inhaler 1 puff inhalation Q4H PRN (Reason: shortness of breath or wheezing) Qty: 8.5 2RF furosemide [Lasix] 20 mg tablet 20 mg PO QAM Qty: 30 1RF fluticasone propionate [Flonase Allergy Relief] 50 mcg/actuation spray,suspension 1 spray intranasal Q12H Qty: 16 0RF Rx Instructions: administer into each nostril omeprazole 20 mg capsule,delayed release(DR/EC) 20 mg PO DAILY Qty: 90 3RF gabapentin 100 mg capsule 100 mg PO BID Qty: 180 1RF glipizide 5 mg tablet 5 mg PO DAILY Qty: 90 1RF lisinopril 5 mg tablet 5 mg PO DAILY Qty: 90 1RF Follow-up/Referrals: Bettie,MD Brayden [Primary Care Provider, Unknown] Time of Disposition: 21:16
--- OUTSIDE RECORDS SUMMARY | 2025-08-24 15:17 | XMS_ITS | Clinical Summary ---
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
--- OUTSIDE RECORDS SUMMARY | 2025-08-24 15:17 | XMS_ITS | Clinical Summary ---
Author Organization [facility] Medical Office Building [address] Address [address] [place] [address] Care Team Providers Care Wood Barrel Reconditioner Name Role Phone Teresa Ramos DO Unavailable [phone] Parker Yo DO Unavailable [phone] Vazquez Arrington DPM Unavailable Brayden Alexandre MD Primary Care Provider [phone] Autumn Washington MD Unavailable [phone] Allergies Active Allergy Reactions Criticality Noted Date [...] 25 Assessment & Plan (12/09/2024 10:24 AM PIG FARMER): Recommend fluids, rest, humidification if needed. She [...] 01/19/2023 Assessment & Plan (01/19/2023 8:58 AM PIG FARMER): Given their past success the patient would [...] surgery Assessment & Plan (01/14/2025 1:44 PM PIG FARMER): Chronic. Uncontrolled. Goal: 120lb Recommend Nutritional every other Monday Seminar. Recommended Medication : Cont. Phentermine. Cont. Truliicty at 4.5mg weekly. Follow through Weight loss surgery Need fasting blood work. Tinea pedis 08/22/2022 Dry skin 12/31/2020 Lumbar radiculopathy 05/27/2019 Encounters Date Type Department Care Team Description 06/17/2025 Telephone [facility] Family Medicine at [address] [place] [address] Brayden Alexandre MD Prior Auth ([place] on Ozempic) 06/16/2025 10:30 AM CDT Office Visit [facility] Family Medicine at [address] [place] [address] Brayden Alexandre MD Type 2 diabetes mellitus without complication, without long-term current use of insulin (HCC) (Primary Dx); Encounter for screening mammogram for malignant neoplasm of breast; Class 3 severe obesity due to excess calories with serious comorbidity and body mass index (BMI) greater than or equal to 70 in adult; Need for hepatitis C screening test 06/10/2025 9:30 AM CDT Office Visit [facility] Cardiology [address] [facility] [address] [place] [address] Ghassan Ferreira MD Swelling of lower extremity [...] on file Legal Sex Female 10:03 AM PIG FARMER Gender Identity Not on file Sexual Orientation [...] PM CDT EGFR Routine 01/16/2025 8:25 PM PIG FARMER Type 2 diabetes mellitus without complication, without long-term current use of insulin (HCC) LIPID PANEL Routine 01/16/2025 8:25 PM PIG FARMER Dyslipidemia ALBUMIN CREATININE RATIO, URINE Routine 01/16/2025 9:06 AM PIG FARMER Type 2 diabetes mellitus without complication, without [...] Final Result * eGFR (01/16/2025 8:25 PM PIG FARMER) eGFR >90 >=60 mL/min/1. 73 m2 Comment: [...] last reviewed 2021. Blood 01/16/2025 8:25 PM PIG FARMER 01/16/2025 8:26 PM PIG FARMER us Brayden Alexandre MD LAB BLOOD ORDERABLES Final Resul t JESUS [address] [facility] Department [place] [address] * Lipid panel (01/16/2025 8:25 PM PIG FARMER) Cholesterol 158 30 - 199 mg/dL Comment: [...] 3 [facility]US BAKER Blood 01/16/2025 8:25 PM PIG FARMER 01/16/2025 8:25 PM PIG FARMER us Brayden Alexandre MD LAB BLOOD ORDERABLES Final Resul t [facility] BAK[facility] [address] [address] Department [place] [address] * Albumin Creatinine Ratio, Urine (01/16/2025 9:06 AM PIG FARMER) Albumin Ur 25.1 mg/L Comment: Interpretive Data No reference range established. Current interpretive data was last revised 2019. Creatinine Ur 268.8 mg/dL JESUS BAKER Comment: Interpretive Data No reference range established. Current interpretive data was last revised 2019. Albumin Creatinine Ratio, Ur 9 1 - 29 mg/g JESUS BAKER Urine 01/16/2025 9:06 AM PIG FARMER 01/16/2025 8:25 PM PIG FARMER us Brayden Alexandre MD LAB URINE ORDERABLES Final Resul t [facility] [address] [address] Department [place] [address] from Last 3 Months or Most Recently Relevant to Health Maintenance Insurance [facility] Care Teams Wood Barrel Reconditioner Relationship Specialty Start Date End Date Brayden Alexandre MD [address] [place] [address] PCP - General Family Medicine 12/05/24 Teresa Ramos DO Family Medicine 01/09/23 Parker Yo DO Internal Medicine 01/09/23 Vazquez Arrington DPM [address] [place], [place] [address] [place] [address] Podiatry 01/19/23 Autumn Washington MD [address] [place] [id number] Consulting Physician Psychiatry 01/14/25
--- OUTSIDE RECORDS SUMMARY | 2025-08-24 15:17 | XMS_ITS | Clinical Summary ---
Author Organization [facility] Address [address] [place] [address] Phone Care Team Providers Care Pharmacy Aide Name Role Phone Provider, None Primary Care Provider Unavailabl e Social History Tobacco Use Types Packs/Day Years Used Date Smoking Tobacco: Never Assessed Comments Unknown Sex and Gender Information Value Date Recorded Sex Assigned at Not on file Legal Sex Female 8:09 PM PLATER HOT DIP Gender Identity Not on file Sexual Orientation [...] Insurance MEDICAID [employer] Care Teams Pharmacy Aide Relationship Specialty Start Date End Date Provider, None [place] PCP - General 09/10/16
--- OUTSIDE RECORDS SUMMARY | 2025-08-24 15:17 | XMS_ITS | Data Portability ---
Author Organization [facility] [place] Address [address] [place] [address] Care Team Providers Care Post Anesthesia Room Nurse Name Role Phone ARTEMIO DUGAN Primary Care Provider [phone] TC GRAJEDA Primary Care Provider [phone] LELAND GARZA Primary Care Provider Assessment Encounter Date Assessment Date Assessment LastModified by Organization Details LastModified Time 09/28/2021 09/28/2021 Annual gynecological exam performed. Patient will come back in a year unless there are new symptoms. [email or web address] Not available 09/08/2021 13:43:07 10/21/2022 10/21/2022 Annual gynecological exam performed. Patient will come back in a year unless there are new symptoms. [email or web address] Not available 10/21/2022 12:55:26 10/24/2023 10/24/2023 Annual gynecological exam performed. Patient will come back in a year unless there are new symptoms. [email or web address] Not available 10/24/2023 11:42:53 12/05/2024 12/05/2024 Annual gynecological exam performed. Patient will come back in a year unless there are new symptoms. [email or web address] Not available 12/05/2024 12:07:07 Plan of Treatment Reminders Order Date Submit Date Provider Last Modified By Organization Details Last Modified Time Details Appointments None recorded. Lab hbcab (hepatitis B core Ab) igm, serum 2024 025 [facility] (Lab), [address], [place], [address], 5 14:16:41 HBsAg (hepatitis B surface Ag), serum 2024 025 [facility] (Lab), [address], [place], [address], 5 14:16:41 hepatitis C virus Ab, serum 2024 025 [facility] (Lab), [address], [place], [address], 5 14:16:41 HIV 1+2 AB + HIV 1 p24 Ag, qualitative immunoassay , serum 2024 025 [facility] (Lab), [address], [place], [address], 5 14:16:40 RPR (rapid plasma reagin), serum 2024 025 [facility] (Lab), [address], [place], [address], 5 14:16:42 Referral None recorded. Procedures None recorded. Surgeries None recorded. Imaging MAMMO, screening, digital, bilateral 2024 025 [facility], [address], [place], [address], 5 17:07:04 MAMMO, screening, bilateral 2022 023 [email or web address] [facility], [address], [place], [address], 3 10:35:17 MAMMO, screening, bilateral 2021 022 [facility], [address], [place], [address], 3 05:01:34 MAMMO, screening, digital, bilateral 2020 021 [email or web address] [facility], [address], [place], [address], 12:20:51 Medication Orders None recorded. Patient TargetsNo targets recorded. Patient InstructionsNo instructions recorded. Reason for Referral None Reported. Results Created Date Observation Date Name Description Value Unit Range Abnormal Flag Note LastModifiedBy Organization Detail LastModifiedTime 10/21/20 22 10/21/2022 CT/GC AND TRICH OMONA S VAGIN MARLI (RRNA ), SWAB chlamydia trachomatis, PCR Negati ve negati ve Not Available [facility] (Lab) [address], [place], [address], 10/22/2022 18:28:22 10/21/20 22 10/21/2022 CT/GC AND TRICH OMONA S VAGIN MARLI (RRNA ), SWAB neisseria gonorrhoeae, PCR Negati ve negati ve Not Available [facility] (Lab) [address], [place], [address], 10/22/2022 18:28:22 10/21/20 22 10/21/2022 CT/GC AND TRICH OMONA S VAGIN MARLI (RRNA ), SWAB trichomonas vaginalis ribosomal RNA (rrna) Negati ve negati ve Not Available [facility] (Lab) 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 FINAL DIAGN OSIS: Negat ermelinda for Intra epith elial Lesio n or Suzanne jama (NIL) . Elect shara blevins yeimy d by Sidra Byrnes ret, CT on 10/27 at 2:51 PM ----- ----- ----- ----- ----- ----- ----- ----- ----- ----- ----- ----- ----- ----- ----- ----- ----- ---- HPV RESUL TS: HPV mRNA E6/E7 : No HPV mRNA Detec una NOTE: This high risk HPV mRNA assay detec ts fourt een high- risk HPV types (16, 18, 31, 33, 35, 39, 45, 51, 52, 56, 58, 59, 66, 68) witho ut diffe renti ation . COMME NT: This speci men was revie wed by a Cytot echno logis t and/o r Patho logis t (as indic ated in this repor t) after evalu ation using the Thinp rep Imagi ng Syste m. CLINI DAMIAN INFOR MATIO N: Menst rual Statu s: LMP (if appli cable ): Clini damian Histo ry/Pr eviou s Pap: Type of Neopl luciana (if appli cable ): Signi fican t Clini damian Findi ngs: Other Histo ry: Hormo jam (if appli cable ): PAP EDUCA SOLITARIO L NOTE: The Pap Test is a scree pilar test with an inher ent false negat ermelinda rate. Liqui d-bas ed sampl ing may decre ase, but will not elimi hank, false negat ermelinda resul ts. A negat ermelinda resul t does not precl ude the prese nce and/o r devel opmen t of disea se, since the prese nce of abnor mal cells in the sampl e depen ds on the locat ion of the lesio n and sampl ing techn ique. Stephen nued regul ar scree pilar is the best metho d of cance r preve ntion . If repor una cytol ogic findi ng do not corre late with physi damian and/o r histo rical findi ngs, furth er inves tigat ion is recom anyi d, as clini nicolas warra nted. Not Available [facility] (Lab) [address], [place], [address], 10/27/2023 15:54:39 10/24/20 23 10/24/2023 TRICH OMONA S VAGIN MARLI (RRNA ) trichomonas vaginalis ribosomal RNA (rrna) Negati ve negati ve Not Available [facility] (Lab) [address], [place], [address], 10/27/2023 15:54:39 10/24/20 23 10/24/2023 CT/GC (COURT) , THINP REP VIAL chlamydia trachomatis, PCR Negati ve negati ve Not Available [facility] (Lab) [address], [place], [address], 10/27/2023 15:54:40 10/24/20 23 10/24/2023 CT/GC (COURT) , THINP REP VIAL neisseria gonorrhoeae, PCR Negati ve negati ve Not Available [facility] (Lab) [address] [place], [address], 10/27/2023 15:54:40 12/05/19 25 12/05/2024 HIV 1/2 ANTIG EN/AN TIBOD Y, REFLE X CONFI RMATI ON HIV antigen/anti body Nonrea ctive nonrea ctive HIV-1 antig en and HIV-1 /HIV- 2 antib odies were not detec una. No labor atory evide nce of HIV infec tion. Not Available [facility] (Lab) [address], [place], [address], 12/06/2024 14:16:40 12/05/19 25 12/05/2024 HEPAT ITIS B SURFA CE ANTIG EN hepatitis B surface antigen Non-re active non-re active This assay was perfo rmed using [employer] ratio n reage nts and test kits. Value s obtai jeanine with other assay metho ds or kits canno t be used inter britt eably . Not Available [facility] (Lab) [address], [place], [address], 12/06/2024 14:16:41 12/05/19 25 12/05/2024 HEPAT ITIS C ANTIB VICTOR MANUEL SCREE N, REFLE X TO CONFI RMATI ON hepatitis C antibody Non-re active non-re active Antib odies to HCV Not Detec una, does not exclu de the possi bilit y of expos ure to HCV. Not Available [facility] (Lab) [address], [place], [address], 12/06/2024 14:16:41 12/05/19 25 12/05/2024 HEPAT ITIS B CORE, IGM hepatitis B core IgM antibody Non-re active non-re active IgM anti- HBc not detec una. Does not exclu de the possi bilit y of expos ure to or infec tion with HBV. Not Available [facility] (Lab) [address], [place], [address], 12/06/2024 14:16:41 12/05/19 25 12/05/2024 RPR SCREE N, REFLE X TITER /CONF IRMAT ION RPR screen Nonrea ctive nonrea ctive Not Available [facility] (Lab) [address], [place], [address], 12/06/2024 14:16:42 12/05/19 25 12/05/2024 CT/GC AND TRICH OMONA S VAGIN MARLI (RRNA ), URINE chlamydia trachomatis, PCR Negati ve negati ve Not Available [facility] (Lab) [address], [place], [address], 12/06/2024 17:16:35 12/05/19 25 12/05/2024 CT/GC AND TRICH OMONA S VAGIN MARLI (RRNA ), URINE neisseria gonorrhoeae, PCR Negati ve negati ve Not Available [facility] (Lab) [address], [place], [address], 12/06/2024 17:16:35 12/05/19 25 12/05/2024 CT/GC AND TRICH OMONA S VAGIN MARLI (RRNA ), URINE trichomonas vaginalis ribosomal RNA (rrna) Negati ve negati ve Not Available [facility] (Lab) [address], [place], [address], 12/06/2024 17:16:35 02/04/20 22 MAMMO , scree pilar, digit al, bilat eral No observ ation record ed. [email or web address] [address], [place], [address], 02/08/2022 20:31:56 02/20/2002/19/2025 MAMMO , scree pilar, digit al, bilat eral No observ ation record ed. [facility] [address], [place], [address], 02/23/2025 07:37:48 Result Notes None recorded. Problems Name Problem SNOMED Code Status Onset Date Resolution Date Notes Provider Name and Address Organization Details Recorded Time Female genital organ symptoms [id number] Completed 201303/02/2021 Pelvic pain;Rec orded Elsewher e: No Locat ion: Cayetano jovel [facility] S ource: EHR Deputy Sheriff Lieutenant ozzie: N Ángelti ce ID: 0001 Omar lable Time: 11:00:00 AM Lisset franco [place] - [facility] 13:16:03 Amenorrh ea [id number] Completed 201303/02/2021 AMENORRH EA;Pract ice ID: 0001 Lisset franco, [facility] 13:15:58 Adult health examinat ion Completed 201403/02/2021 Routine general medical examinat ion at a health care facility ;Practic e ID: 0001 Lisset franco [facility] 13:15:57 Speciali zed medical examinat ion Completed 201403/02/2021 Routine gynecolo gical examinat ion;Prac kvng ID: 0001 Lisset franco [facility] 13:16:15 Screenin g for malignan t neoplasm of cervix Completed 201403/02/2021 Pap Smear;Pr actice ID: 0001 Lisset franco [facility] 13:16:[address] Concept Completed 201503/02/2021 Encntr for behavioral intervention specialist exam (general ) (routine ) w/o abn findings ;Practic e ID: 0001 Lisset franco [facility] 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 1 13:16:04 Contrace ptive sheath status [id number] Completed 201503/02/2021 IUD follow up;Recor ded Elsewher e: No Locat ion: [facility] S ource: EHR Deputy Sheriff Lieutenant ozize: N Ángelti ce ID: 0001 Omar lable Time: 03:00:00 PM Lisset franco, [facility] 13:16:01 Sexually transmit una infectio us disease [id number] Completed 201503/02/2021 STD;Enrique rded Elsewher e: No Locat ion: [facility] S ource: EHR Deputy Sheriff Lieutenant ozzie: N Isha ce ID: 0001 Omar lable Time: 01:00:00 PM Lisset franco, [facility] 13:16:[address] Concept Completed 201603/02/2021 Encntr for general adult medical exam w/o abnormal findings ;Recorde d Elsewher e: No Locat ion: [facility] S ource: EHR Deputy Sheriff Lieutenant ozzie: N Ángelti ce ID: 0001 Omar lable Time: 01:00:00 PM Lisset franco, [facility] 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 1 13:16:05 Pregnanc y test negative [id number] Completed 201703/02/2021 Encounte r for pregnanc y test, result negative ;Recorde d Elsewher e: No [facility] S our[facility]: EHR Deputy Sheriff Lieutenant ozzie: N Practi ce ID: 0001 Omar lable Time: 03:00:00 PM Lisset franco [facility] 13:16:08 Tinea corporis [id number] Completed 201703/02/2021 Tinea corporis ;Recorde d Elsewher e: No Locat ion: [facility] S ource: EHR Deputy Sheriff Lieutenant ozzie: N Practi ce ID: 0001 Omar lable Time: 03:00:00 PM Lisset franco [facility] 13:16:17 Acute vaginiti s [id number] Completed 201703/02/2021 Acute vulvovag initis;R ecorded Elsewher e: No Locat ion: [facility] Practi ce ID: 0001 Omar lable Time: 03:00:00 PM Lisset franco [facility] 13:15:56 Pelvic and perineal pain [id number] Completed 201703/02/2021 Pelvic and perineal pain;Rec orded Elsewher e: No Locat ion: [facility] N Practi ce ID: 0001 Omar lable Time: 04:30:00 PM Lisset franco [facility] 13:16:06 Problem Notes None recorded. Procedures Surgical History Date Name Laterality Status Provider Name and Address Organization Details Recorded Time 10/24/20 Date of Last Pap Smear completed DEEP Silva [facility] 12/05/2024 12:22:26 03/03/20 IUD Removal completed Porsha More [facility]- [address], [place], [address], [facility] 03/03/2021 14:22:39 03/03/20 21 IUD Insertion completed Porsha More [facility] [address], [place], [address], [facility] 03/03/2021 14:22:13 01/28/20 21 hernia repair completed Porsha More [facility] [address], [place], [address], [facility] 09/28/2021 12:04:36 11/13/19 15 Date of Last Colonoscopy completed DEEP Silva [facility] 12/05/2024 12:24:40 11/13/19 15 Colonoscopy completed DEEP Silva [facility] 12/05/2024 12:24:31 11/13/19 07 Tubal Ligation completed Lisset Galan [facility] 03/02/2021 13:20:27 Imaging Results None recorded. Procedure Notes None recorded. Medical Equipment None Reported. Allergies Allergen ID Allergen Name Allergen Category Reaction Reaction Severity Criticality Documentation Date Start Date Code Code System Note Provider Name and Address Organization Details Recorded Time 77372 metformin medicatio n Not available Not available Not available 03/03/2021 6809 RxNorm Lisset Galan [facility] 1 13:56:04 44028 simvastat in medicatio n Not available Not available Not available 03/03/2021 56714 RxNorm Lisset franco [facility] 1 13:56:10 2490 latex environme nt,medica tion Not available Not available Not available 09/04/2020 77269 91 RxNorm Sarah Beth Riddle [facility] 0 14:09:19 Medications Name Sig Start Date Stop Date Status Note LastModified by Organization Details LastModified Time Prometriu m 200 mg capsule take 1 capsule by oral route every day for 10 days at bedtime 04/06 completed Prescrib ed Elsewher e: No Locat ion: Jeanette med [facility] odify By: vernon garcia DateTime : 03/28/20 16 10:21:37 AM Not Available Not Available Not Available ziprasido ne 80 mg capsule TAKE 2 CAPSULE BY MOUTH DAILY WITH MEALS active Not Available Not Available No t Available doxycycli ne hyclate 100 mg capsule 10/24 completed Not Available Not Available Not Available Celexa 10 mg tablet take 1 tablet by oral route every day 03/03 completed Prescrib ed Elsewher e: Yes [facility] By: lisa spivey DateTime : 08/27/20 08:30:00 AM Not Available Not Available Not Available ammonium lactate 12 % lotion 03/03 completed Not Available Not Available Not Available trazodone 50 mg tablet take 1 tablet by oral route 3 times every day after meals 03/03 completed Prescrib ed Elsewher e: Yes Loca tion: [facility] odify By: lisa spivey DateTime : 09/11/20 18 03:00:00 PM Not Available Not Available Not Available atorvasta tin 10 mg tablet TAKE 1 TABLET BY MOUTH ONCE DAILY active Not Available Not Available No t Available nystatin 100,000 unit/gram topical ointment 03/02 completed Not Available Not Available Not Available benzonata te 200 mg capsule TAKE ONE CAPSULE BY MOUTH THREE TIMES DAILY NEEDED FOR COUGH 10/24 completed Not Available Not Available Not Available ranitidin e 300 mg tablet 03/03 completed Not Available Not Available Not Available hydrocodo ne 5 mg-acetam inophen 325 mg tablet 10/21 completed Not Available Not Available Not Available prednison e 20 mg tablet 10/21 completed Not Available Not Available Not Available clonazepa m 0.5 mg tablet active Not Available Not Available Not Available spironola ctone 100 mg tablet take 1 tablet by oral route every day 09/11 completed Prescrib ed Elsewher e: Yes [facility] By: lisa Jovel ncounter DateTime : 10/02/20 14 11:00:00 AM Not Available Not Available Not Available sumatript an 50 mg tablet active Not Available Not Available Not Available Alin Low Dose Aspirin 81 mg tablet,de layed release take 1 tablet by oral route every day 2013 active Not Available Not Available Not Avai lable penicilli n V potassium 500 mg tablet 09/04 completed Not Available Not Available Not Available phentermi ne 37.5 mg tablet active Not Available Not Available No t Available nystatin- triamcino lone 100,000 unit/gram -0.1 % topical ointment APPLY TO THE AFFECTED AREA(S) BY TOPICAL ROUTE 2 TIMES PER DAY FOR 5 DAYS 03/02 completed Not Available Not Available Not Available prazosin 5 mg capsule TAKE 1 CAPSULE BY MOUTH EVERY DAY AT BEDTIME FOR PTSD active Not Available Not Available No t Available amoxicill in 875 mg tablet 10/24 completed Not Available Not Available Not Available citalopra m 20 mg tablet TAKE 1 TABLET BY MOUTH EVERY DAY IN THE MORNING active Not Available Not Available No t Available Metrogel Vaginal 0.75 % (37.5 mg/5 gram) insert 1 applicat orful by vaginal route for 5 nights at bedtime 08/27 completed Prescrib ed Elsewher e: No Locat ion: Cayetano jovel [facility] odify By: lisa Jovel ncounter DateTime : 09/13/20 18 10:51:54 AM Not Available Not Available Not Available ziprasido ne 20 mg capsule take 1 capsule by oral route 2 times every day with food 03/03 completed Prescrib ed Elsewher e: Yes Loca tion: Cayetano jovel [facility] odify By: romero garcia DateTime : 10/02/20 14 11:00:00 AM Not Available Not Available Not Available prednisol one acetate 1 % eye drops,adalgisa pension 09/04 completed Not Available Not Available Not Available benzonata te 100 mg capsule TAKE 1 CAPSULE BY MOUTH THREE TIMES DAILY NEEDED FOR COUGH active Not Available Not Available No t Available cephalexi n 500 mg capsule 09/04 completed Not Available Not Available Not Available trazodone 150 mg tablet TAKE 1 TABLET BY MOUTH EVERY DAY AT DINNER active Not Available Not Available No t Available oseltamiv ir 75 mg capsule active Not Available Not Available Not Available triamcino lone acetonide 0.1 % topical ointment 03/03 completed Not Available Not Available Not Available omeprazol e 20 mg capsule,d elayed release TAKE 1 CAPSULE BY MOUTH DAILY active Not Available Not Available No t Available lisinopri l 5 mg tablet TAKE 1 TABLET BY MOUTH DAILY active Not Available Not Available No t Available acyclovir 200 mg capsule take 1 capsule by oral route every 4 hours (5 times per day) for 5 days 03/03 completed Prescrib ed Elsewher e: No Locat ion: [facility] odify By: vernon garcia DateTime : 08/31/20 18 11:56:18 AM Not Available Not Available Not Available furosemid e 20 mg tablet TAKE 1 TABLET BY MOUTH EVERY MORNING active Not Available Not Available No t Available gabapenti n 100 mg capsule TAKE 1 CAPSULE BY MOUTH TWICE DAILY active Not Available Not Available No t Available diazepam 10 mg tablet 09/04 completed Not Available Not Available Not Available Depakote 125 mg tablet,de layed release take 2 tablet by oral route 2 times every day 08/27 completed Prescrib ed Elsewher e: Yes Loca tion: [facility] odify By: lisa spivey DateTime : 07/30/20 14 01:00:00 PM Not Available Not Available Not Available albuterol sulfate HFA 90 mcg/actua tion aerosol inhaler active Not Available Not Available Not Available ketoconaz ole 2 % topical cream apply by topical route every day to the affected area(s) on thigh and buttock active Not Available Not Available No t Available fluticaso ne propionat e 50 mcg/actua tion nasal spray,adalgisa pension SHAKE LIQUID AND USE 1 SPRAY IN EACH NOSTRIL EVERY 12 HOURS active Not Available Not Available No t Available doxycycli ne hyclate 100 mg tablet TAKE 1 TABLET BY MOUTH EVERY 12 HOURS FOR 7 DAYS active Not Available Not Available No t Available glipizide 5 mg tablet TAKE 1 TABLET BY MOUTH DAILY active Not Available Not Available No t Available prazosin 2 mg capsule 10/24 completed Not Available Not Available Not Available Anjali 0.35 mg tablet take 1 tablet by oral route every day 05/05 completed Prescrib ed Elsewher e: No Locat ion: Jeanette med [facility] odify By: amklori spivey DateTime : 10/13/20 15 01:30:32 PM Not Available Not Available Not Available cholecalc iferol (vitamin D3) 1,250 mcg (50,000 unit) capsule TAKE 1 CAPSULE BY MOUTH WEEKLY active Not Available Not Available No t Available norethind peri (bulk) 100 % powder 08/27 completed Prescrib ed Elsewher e: Yes Loca tion: [facility] odify By: lisa spivey DateTime : 10/02/20 14 11:00:00 AM Not Available Not Available Not Available Trulicity 1.5 mg/0.5 mL subcutane ous pen injector ADMINIST ER 1.5 MG UNDER THE SKIN EVERY 7 DAYS active Not Available Not Available No t Available Trulicity 0.75 mg/0.5 mL subcutane ous pen injector ADMINIST ER 0.75 MG UNDER THE SKIN EVERY 7 DAYS active Not Available Not Available No t Available selenium sulfide 2.5 % lotion apply by topical route every day for 7 days to the affected area(s) 04/11 completed Prescrib ed Elsewher e: No Locat ion: [place] jovel [facility] odify By: rob lizkeyla DateTime : 04/05/20 18 01:53:14 PM Not Available Not Available Not Available Trulicity 3 mg/0.5 mL subcutane ous pen injector ADMINIST ER 3 MG UNDER THE SKIN EVERY 7 DAYS active Not Available Not Available No t Available Trulicity 4.5 mg/0.5 mL subcutane ous pen injector ADMINIST ER 4.5 MG UNDER THE SKIN EVERY 7 DAYS active Not Available Not Available No t Available Vitals Date Recorded Body height Body mass index (BMI) Body weight Systolic And Diastolic Systolic And Diastolic Provider Name and Address Organization Details Last Updated DateTime 12/05/2024 158.75 cm 77.4 kg/m2 315472.7 2 g 151/84 mm[Hg] 140/91 mm[Hg] DEEP Little [facility] 12:54:40 Date Recorded Systolic And Diastolic Provider Name and Address Organization Details Last Updated DateTime 09/28/2021 132/82 mm[Hg] Porsha More, [facility]- [address], [place], [address], [facility] 09/28/2021 12:01:19 Date Recorded Body height Body mass index (BMI) Body weight Systolic And Diastolic Provider Name and Address Organization Details Last Updated DateTime 09/28/2021 158.75 cm 68.8 kg/m2 892406.29 g 162/101 mm[Hg] Alyson Juarez [facility] 09/28/2021 11:49:40 Date Recorded Body height Body mass index (BMI) Body weight Systolic And Diastolic Provider Name and Address Organization Details Last Updated DateTime 10/21/2022 158.75 cm 66.8 kg/m2 550442.21 g 124/82 mm[Hg] Mildred Almendarez [facility] 10/21/2022 12:55:50 Date Recorded Body height Body mass index (BMI) Body weight Systolic And Diastolic Provider Name and Address Organization Details Last Updated DateTime 10/24/2023 158.75 cm 70.4 kg/m2 260773.62 g 132/82 mm[Hg] Lu Perez [facility] 10/24/2023 11:45:46 Social History Question Answer Notes LastModified by Organizat ion Details LastModified Time Tobacco Smoking Status Never Smoker Renu franco, [facility] 10/24/2023 11:36:05 Do You Have An Advance Directive? No Information n ot available 04/23/2021 Are You Blind Or Do You Have Difficulty Seeing? No [email or web address] Information n ot available 03/03/2021 What Is Your Level Of Caffeine Consumption? Moderate Information not available 04/23/2021 How Much Tobacco Do You Chew? None [email or web address] Information not available 10/21/2022 In The 14 Days Before Symptom Onset, Have You Had Close Contact With A Laboratory-confirm ed COVID-19 While That Case Was Ill? No [email or web address] Information n ot available 03/03/2021 In The 14 Days Before Symptom Onset, Have You Had Close Contact With A Person Who Is Under Investigation For COVID-19 While That Person Was Ill? No [email or web address] Information not available 03/03/2021 Have You Been To An Area Known To Be High Risk For COVID-19? No [email or web address] Information not available 03/03/2021 Are You Deaf Or Do You Have Serious Difficulty Hearing? No [email or web address] Information not available 03/03/2021 What Type Of Diet Are You Following? REGULAR Information n ot available 03/03/2021 What Is The Highest Grade Or Level Of School You Have Completed Or The Highest Degree You Have Received? [id number] Information not available 04/23/2021 Are There Any Guns Present In Your Home? No Information not available 04/23/2021 Do You Use Protection During Sex? No Information not available 04/23/2021 Do You Use Your Seat Belt Or Car Seat Routinely? Yes Information not available 04/23/2021 Are You Sexually Active? Yes Information not available 12/05/2024 Do You Have Smoke And Carbon Monoxide Detectors In Your Home? No Information not available 04/23/2021 At What Age Did You Start Smoking Tobacco? 19 Information not available 04/23/2021 How Much Tobacco Do You Smoke? 1 PPD [email or web address] Information not available 12/05/2024 Do You Use Sunscreen Routinely? No Information not available 04/23/2021 Has Tobacco Cessation Counseling Been Provided? No [email or web address] Information not available 10/24/2023 How Many Years Have You Smoked Tobacco? 23 Information not available 12/05/2024 Have You Used IV Drugs? No Information not available 04/23/2021 Do You Have Difficulty Walking Or Climbing Stairs? No [email or web address] Information not available 10/24/2023 Sex: Unknown Functional Status Question Answer Note LastModified by Organizat ion Details LastModified Time Do you use any illicit or recreational drugs? No [email or web address] Information not available 03/03/2021 Do you or have you ever used any other forms of tobacco or nicotine? No [email or web address] Information not available 10/24/2023 What is your level of alcohol consumption? None Information not available 03/03/2021 Are you able to walk independently without assistance or assistive devices? [email or web address] Information not available 04/23/2021 Are you able to care for yourself independently? Yes [email or web address] Information not available 10/24/2023 What is your occupation? Disabled Information not available 04/23/2021 Do you have difficulty dressing, bathing, grooming, or toileting? No [email or web address] Information not available 10/24/2023 What is your exercise level? Occasional Information not available 04/23/2021 Mental Status Question Answer Note LastModified by Organization D etails LastModified Time Do you feel stressed (tense, restless, nervous, or anxious, or unable to sleep at night)? [id number] Information not available 04/23/2021 Family History Relationship Description Onset Age of this Age Resolved Age Notes LastModified by Organization Details LastModified Time Mother Hypertensive disorder [email or web address] Not available 2019 14:10:09 Mother Disorder of thyroid gland [email or web address] Not available 2019 14:10:23 Mother Phlebitis Not availabl e 12/05/2024 12:04:58 Mother Malignant neoplasm of breast Not available 2024 12:24:01 Maternal Grandmother Hypertensive disorder [email or web address] Not available 2019 14:10:09 Maternal Grandmother Infertile [email or web address] Not available 12:04:58 Sister Anemia [email or web address] Not available 14:10:50 Sister Blood coagulation disorder [email or web address] Not available 2019 14:10:57 Brother Asthma [email or web address] Not available 1 14:11:04 Brother Schizophreni a [email or web address] Not available 2024 12:04:58 Maternal Aunt Carcinoma in situ of breast [email or web address] Not available 2024 12:04:58 Medical History Condition Response Allergies (Food, seasonal, environmental ) N Other Y Drug/Latex Allergies/Reactions N Blood Transfusion N Breast Cancer N Dermatologic Disorders N Lung Disease N Defects or Inherited Disease N Breast Problem N Gestational Diabetes N Hematologic disorders N Anesthesia Complications N History of STI Y Deep Vein Thrombosis N Polycystic ovary syndrome Y Anxiety Disorder N Autoimmune disease N Arthritis N Polyps N Infertility N Acid Reflux (GERD) N History of abnormal pap N Cancer N Varicosities N Stroke N Neurologic/Epilepsy N Endometriosis N High Cholesterol Y Fibromyalgia N Headaches N Kidney Disease N Heart Problems N Thyroid Problems N Kidney or Bladder Problems N GI Problems N Eating Disorder N Anemia N Art (IVF or FET) N Psychiatric Illness N Ovarian Cancer N Diabetes Y Pulmonary (TB, Asthma) N Hepatitis/Liver Disease N No Past Medical History Y Eczema N Urinary Tract Infection N Abuse/Domestic Violence N Asthma Y Trauma/Violence N Depression/ depression N Heart Disease N Pre-Eclampsia N Hypertension Y Osteoporosis N Thrombophilias N Gynecological History Statement/Question Response Abnormal Pap N Date of Last Mammogram Date of LMP 11/13/2010 On BCP's at Conception? N N Was last menstrual period normal N STIs/STDs Y HPV Vaccine N 11 Current Control Method IUD Age at First Child 22 Date of Last Colonoscopy 11/13/2014 Sexually Active? Y IUD Menses Monthly N Age of first menstrual cycle 13 Date of Last Pap Smear 10/24/2023 Sexual Problems? N Desired Control Method IUD LMP Approximate N Obstetrics History GPAL:G 2 P 2 0 0 2 Type Value Full Term 2 Living 2 Total 2 Past Encounters Encounter ID Performer Location Encounter Start Date Encounter Closed Date Diagnosis/Indication Diagnosis SNOMED-CT Code Diagnosis ICD10 Code Diagnosis IMO Codes Diagnosis Note [id number] Porsha More [facility] [address] [address] 09/04/2020 13:11:26 09/04/2020 16:07:45 Gynecologic examination 10599030 Z01.419 Take Calcium with Vitamin D 1200mg daily if not receiving in daily diet. It is strongly advised to have an annual flu shot and up can obtain at most pharmacies . If you have not had a TDap shot in the last 10 years you should obtain one as well. Discussed with patient & provided with informatio n regarding Gardisil vaccine to prevent the 4 strains for HPV that cause cervical cancer if under age 26. Encourage safe sexual practices, to use condoms and limit partners if not already in a monogamous relationsh ip. Do monthly self breast exams. Have mammogram yearly or every other year depending on family history. BRCA testing is now available for patients with strong genetic history of female cancer. If interested contact the office. Engage in daily exercise of low impact aerobic exercise 45-60 minutes 4-5 times weekly. Avoid tobacco and illicit drugs as well as using moderation with alcohol intake less than 1-2 8 oz beverages daily. This lifestyle behavior pattern will lead to less health conditions and longer life span. If BMI greater than 25 weight watchers or dietary consult advised. Patient received above instructio ns, and questions have been answered. If you have any questions please call or respond to this email. Patient was made aware of the patient portal and may obtain a paper copy of today's plan if desired. Opts to pursue pap this year. Norm pap/hpv hx Has mirena IUD due to exp 04/07/2021 Wants another & will schedule prior to expt date. Skin irritation [id number] L30.9 Mycolog ointment sent for prn use. F/U with PCP if not resolved or worsens. [id number] Porsha More , [facility] [address] [address] 03/03/2021 13:35:31 03/03/2021 14:26:11 Removal of intrauterine device 18012372 Z30.432 She states the symptoms are of new onset. Patient is here due to the approachin g due date or the nature of her IUD and wishes to have it removed. We discussed the timing of the replacemen t with the next bleed or the need to abstain if she no longer has regular cycles. She expressed understand ing. It was explained that she may have bleeding or spotting after the removal of the device today as well. If cannot see the strings of this device we will need to get an US image to make that the device is still in place and not in an unobtainab le position. She expressed understand ing of all the above instructio ns. Insertion of intrauterine contraceptive device [id number] Z30.430 She has been counseled on all of the r/b/a of placement of an intrauteri ne device that include but are not limited to uterine perforatio n, injury to cervix, vagina, bladder, and bowel.Risk s of bleeding due to injury or increased irregular bleeding due to progestin effect of the device. Risks of infection would be increased within the first 21 days of placement with concommita nt cervicitis . She understand s that the device will need to be removed in this instance due to increased risk of Pelvic inflammato ry disease. Patient is aware she is at higher risk for STD and if contracted she could lose her fertility. Pt is aware that if occurs that she should contact office immediatel y to rule out ectopic which could be life threatenin g. IUD will also need to be removed and this could cause miscarriag e. Patient also informed that in the event her strings are absent or embedded at the time of removal she may need to have the IUD surgically removed. She was informed of the above and properly consented. IUD placed w/o complicati on. Patient should return to office after next period to check for string placement. Patient to expect irregular bleeding but should be seen in the ED if bleeding increases to soaking a pad an hour for at least 2 hours. She verbalized understand ing. [id number] Porsha More [facility] [address] [address] 04/23/2021 11:19:13 04/23/2021 12:15:35 Intrauterine device check [id number] Z30.431 Patient is here for IUD string check. She is doing well. No irregular bleeding, cramping, d/c, vag odor, itching. No pain. No changes in appetite, mood, sleeping patterns. Wishes to continue this method. Time spent in visit is a total of 15 mins with at least 50% of visit consisting of counseling and review of plan of care. Additional precaution carmelita measures were taken to minimize potential exposure to the Covid-19 virus during this patient s visit, including available hand accounts receivable manager upon arrive, temperlouieur e check and being asked a series of screening questions. All staff wore face coverings during this encounter, as well as provided additional cleaning and sanitizing of all surfaces, including countertop s, pens, chairs, door handles, light switches, etc, prior to and following the patient s visit. [id number] Porsha More [facility] [address] [address] 09/28/2021 11:35:49 09/28/2021 12:40:29 Gynecologic examination [id number] Z01.419 Take Calcium with Vitamin D 1200mg daily if not receiving in daily diet. It is strongly advised to have an annual flu shot and up can obtain at most pharmacies . If you have not had a TDap shot in the last 10 years you should obtain one as well. Discussed with patient & provided with informatio n regarding Gardisil vaccine to prevent the 4 strains for HPV that cause cervical cancer if under age 26. Encourage safe sexual practices, to use condoms and limit partners if not already in a monogamous relationsh ip. Do monthly self breast exams. Have mammogram yearly or every other year depending on family history. BRCA testing is now available for patients with strong genetic history of female cancer. If interested contact the office. Engage in daily exercise of low impact aerobic exercise 45-60 minutes 4-5 times weekly. Avoid tobacco and illicit drugs as well as using moderation with alcohol intake less than 1-2 8 oz beverages daily. This lifestyle behavior pattern will lead to less health conditions and longer life span. If BMI greater than 25 weight watchers or dietary consult advised. Patient received above instructio ns, and questions have been answered. If you have any questions please call or respond to this email. Patient was made aware of the patient portal and may obtain a paper copy of today's plan if desired. Pap/hpv [id number] per asccp unless otherwise indicated. Norm pap/hpv hxDecline need std screenHas mirena IUD-loves it Screening mammography 24 [id number] Z12.31 Z80.9 Genetic screening discussed- will considerMa mmo order given [id number] Porsha More [facility] [address] [address] 10/21/2022 12:46:43 10/21/2022 14:20:25 Gynecologic examination [id number] Z01.419 Take Calcium with Vitamin D 1200mg daily if not receiving in daily diet. It is strongly advised to have an annual flu shot and up can obtain at most pharmacies . If you have not had a TDap shot in the last 10 years you should obtain one as well. Discussed with patient & provided with informatio n regarding Gardisil vaccine to prevent the 4 strains for HPV that cause cervical cancer if under age 26. Encourage safe sexual practices, to use condoms and limit partners if not already in a monogamous relationsh ip. Do monthly self breast exams. Have mammogram yearly or every other year depending on family history. BRCA testing is now available for patients with strong genetic history of female cancer. If interested contact the office. Engage in daily exercise of low impact aerobic exercise 45-60 minutes 4-5 times weekly. Avoid tobacco and illicit drugs as well as using moderation with alcohol intake less than 1-2 8 oz beverages daily. This lifestyle behavior pattern will lead to less health conditions and longer life span. If BMI greater than 25 weight watchers or dietary consult advised. Patient received above instructio ns, and questions have been answered. If you have any questions please call or respond to this email. Patient was made aware of the patient portal and may obtain a paper copy of today's plan if desired. Pap/hpv [id number] per asccp unless otherwise indicated. Norm pap/hpv hxPap/hpv due Screen [facility] ipGenetic Screen discussedC olon Screen naDexa Screen [facility] PCPMammo orderedA Mirena IUD prevents for up to 8 years, and also helps with heavy periods for up to 5 years in women who choose an IUD for control. Screening mammography 24 757521 Z12.31 Z80.9 Genetic screening discussed- will considerMa mmo order given [id number] [facility] [address] [place] [address] 09/13/2023 14:51:02 09/13/2023 19:07:07 [id number] [facility] [address] [place] [address] 10/24/2023 11:35:45 10/24/2023 12:06:21 Gynecologic examination [id number] Z01.419 Take Calcium with Vitamin D 1200mg daily if not receiving in daily diet. It is strongly advised to have an annual flu shot and up can obtain at most pharmacies . If you have not had a TDap shot in the last 10 years you should obtain one as well. Discussed with patient & provided with informatio n regarding Gardisil vaccine to prevent the 4 strains for HPV that cause cervical cancer if under age 26. Encourage safe sexual practices, to use condoms and limit partners if not already in a monogamous relationsh ip. Do monthly self breast exams. Have mammogram yearly or every other year depending on family history. BRCA testing is now available for patients with strong genetic history of female cancer. If interested contact the office. Engage in daily exercise of low impact aerobic exercise 45-60 minutes 4-5 times weekly. Avoid tobacco and illicit drugs as well as using moderation with alcohol intake less than 1-2 8 oz beverages daily. This lifestyle behavior pattern will lead to less health conditions and longer life span. If BMI greater than 25 weight watchers or dietary consult advised. Patient received above instructio ns, and questions have been answered. If you have any questions please call or respond to this email. Patient was made aware of the patient portal and may obtain a paper copy of today's plan if desired. Pap/hpv sentSTD Screen sentGeneti c Screen discussedC olon Screen naDexa Screen naRoutine Labs PCPMammo orderedA Mirena IUD prevents for up to 8 years, and also helps with heavy periods for up to 5 years in women who choose an IUD for control. Screening mammography 24 [id number] Z12.31 Z80.9 Genetic screening discussed- will considerMa mmo order given [id number] NAGI Duffy [place] [address] [address] 12/05/2024 12:03:46 12/05/2024 15:51:12 Gynecologic examination [id number] Z01.419 [facility] - Mirena IUD, will 03/03/2029P ap - UTD, due screen - gc/ct/tric h urine testing sentMammog radha - order givenColon cancer screening - n/aRoutine labs - UTD/PCPBP precaution s discussed, encouraged PCP f/uRTC in 1 yr or sooner if needed Suggested Calcium with Vitamin D daily. Patient advised to get an annual flu shot in the fall and she could obtain at local pharmacy. Also to obtain TDap vaccinatio n if you have not had one in the last 10 years. Recommend yearly mammograms . Encouraged monthly self breast exams. Encourage safe sexual practices, to use condoms and limit partners if not already in a monogamous relationsh ip. Engage in regular exercise. Avoid tobacco and illicit drugs. This lifestyle behavior pattern will lead to less health conditions and longer life span. If BMI greater than 25 dietary consult advised. All questions have been answered. Screening for malignant neoplasm of breast [id number] Z12.39 Venereal d isease screening [id number] Z11.3 Sexually t ransmitted infectious disease 9882951 A64 Health Concerns Section Related Observation LastModified by Organization Detai ls LastModified Time None Recorded Concern Status LastModified by Organization Details LastModified Time None Recorded Advance Directives Directive N: Payers Insurance Date Sequence Insurance Name Policy Number Policy Chen Covered Member ID Chen Member ID Guarantor Name 12/05/2024 1 [facility] PRIOR TO 05/13/2021 (MEDICAID REPLACEMENT - HMO) [facility] [id number] [facility] 12/05/[address] [facility] ON OR AFTER 05/13/21 (MEDICAID REPLACEMENT - HMO) [facility] [id number] [facility] 12/09/2024 1 [facility] (MEDICAID HMO) [id number] [facility] [id number] [facility] Notes Date Note Type Note Provider Name and Address Organization Details Recorded Time 09/28/20 21 text/ht ml Annual GYNReported by PatientHistoryFor history, patient reportsno gynecologic complaints.Genitourinary symptomsFor menstrual cycle, patient reportsnormal menses. For urinary symptoms, patient reportsno hematuriaandno incontinence. For vulva, patient reportsno genital lesion. For vagina, patient reportsnormal vaginal discharge.Breast symptomsFor breast, patient reportsno breast pain,no breast lump, andno nipple discharge.ContraceptionFor current contraception, patient reportssatisfied with current contraceptionandintrauterine device (iud).Endocrine symptomsFor sexual complaints, patient reportsno sexual complaints,no pain during intercourse, andnormal libido. For menopausal symptoms, patient reportsno menopausal symptomsandnormal vaginal lubrication.Psychological symptomsFor psychological symptoms, patient reportsno depression,no anxiety, andno pmdd.Preventative measuresFor preventive measures, patient reportsencourage self breast examination,encourage regular exercise,encourage no tobacco use,encourage regular mammograms starting age 40, andneeds to schedule mammogram. Porsha More, [facility] [address], [place], [address], [facility] 09/28/2021 12:14:42 10/21/20 22 text/ht ml Annual GYNReported by PatientHistoryFor history, patient reportsno gynecologic complaints.Genitourinary symptomsFor menstrual cycle, patient reportsnormal menses (amenorrheic iud). For urinary symptoms, patient reportsno hematuriaandno incontinence. For vulva, patient reportsno genital lesion. For vagina, patient reportsnormal vaginal discharge.Breast symptomsFor breast, patient reportsno breast pain,no breast lump, andno nipple discharge.ContraceptionFor current contraception, patient reportssatisfied with current contraceptionandintrauterine device (iud).Endocrine symptomsFor sexual complaints, patient reportsno sexual complaints,no pain during intercourse, andnormal libido. For menopausal symptoms, patient reportsno menopausal symptomsandnormal vaginal lubrication.Psychological symptomsFor psychological symptoms, patient reportsno depression,no anxiety, andno pmdd.Preventative measuresFor preventive measures, patient reportsencourage self breast examination,encourage regular exercise,encourage no tobacco use,encourage regular mammograms starting age 40, andneeds to schedule mammogram. Porsha More [facility] [address], [place], [address], [facility] 10/21/2022 13:07:45 10/24/20 23 text/ht ml Annual GYNReported by PatientHistoryFor history, patient reportsno gynecologic complaints.Genitourinary symptomsFor menstrual cycle, patient reportsnormal menses (amenorrheic on iud mirena). For urinary symptoms, patient reportsno hematuriaandno incontinence. For vulva, patient reportsno genital lesion. For vagina, patient reportsnormal vaginal discharge.Breast symptomsFor breast, patient reportsno breast pain,no breast lump, andno nipple discharge.ContraceptionFor current contraception, patient reportssatisfied with current contraceptionandintrauterine device (iud).Endocrine symptomsFor sexual complaints, patient reportsno sexual complaints,no pain during intercourse, andnormal libido. For menopausal symptoms, patient reportsno menopausal symptomsandnormal vaginal lubrication.Psychological symptomsFor psychological symptoms, patient reportsno depression,no anxiety, andno pmdd.Preventative measuresFor preventive measures, patient reportsencourage self breast examination,encourage regular exercise,encourage no tobacco use,encourage regular mammograms starting age 40,followed with yearly pap smears, andneeds to schedule mammogram. NAGI Robertson- [address], [place], [address], [facility] 10/24/2023 12:04:53 12/05/19 25 text/ht ml Annual GYNReported by PatientGenitourinary symptomsFor menstrual cycle, patient reportsnormal menses. For urinary symptoms, patient reportsno hematuriaandno incontinence. For vulva, patient reportsno genital lesion. For vagina, patient reportsnormal vaginal discharge.Breast symptomsFor breast, patient reportsno breast pain,no breast lump, andno nipple discharge.ContraceptionFor current contraception, patient reportssatisfied with current contraceptionandintrauterine device (iud).Endocrine symptomsFor sexual complaints, patient reportsno sexual complaints,no pain during intercourse, andnormal libido. For menopausal symptoms, patient reportsno menopausal symptomsandnormal vaginal lubrication.Psychological symptomsFor psychological symptoms, patient reportsno depression,no anxiety, andno pmdd.Preventative measuresFor preventive measures, patient reportsencourage self breast examination,encourage regular exercise,encourage no tobacco use, andencourage regular mammograms starting age 40.44yo [facility] - Mirena IUD, inserted 03/03/2021no h/o abnormal papslast pap 10/2023 : nilm, HPV (-)would like STI testing today NAGI Duffy [address], [place], [address], [facility] 12/05/2024 15:25:45 OBGyn Episode Ob Episode Information Episode Created Date Number of Fetuses Patient Bloodtype Patient rh Status Prepregnancy Weight lbs Domestic Partner Domestic Partner Phone Father Name Line Installer Status 09/04/20 20 1 CLOSED Fetus Data First Name Last Name Admitted to NICU Weight (g) Sex Living Outcome Pediatric Complications Fetus ID Race Codes Race Delivery Type M [id number] Vaginal Delivery Navdeep Calculation Initial Navdeep Date Initial Exam Date Initial Exam Provider Initial Ultrasound Date Last Menstrual Period Date Ultra Sound Weeks Gestation 0 Eighteen To Twenty Week Navdeep Update Ultra Sound Date Fundal Height At Umbil Quickening Date Ultra Sound Latest Weeks Gestation Final Navdeep Confirmed By Final Navdeep Confirmed Date Final Navdeep Date Ultra Sound Latest Days Gestation 0 0 Menstrual History Last Menstrual Date Menses Monthly On Bcp Conception Prior Menses Frequency Hcg Plus Date Menarche Onset Age Delivery Information Delivery Date Delivery Type Labor Anesthesia Weeks Gestation Incision Type Labor Labor Length Hrs Delivered By Post Complications Tubal Sterilization Discharge Date Comments 7 32 Discharge Information Feeding Method Contraceptive Method Maternal HG B and HCT Levels Ob Episode Information Episode Created Date Number of Fetuses Patient Bloodtype Patient rh Status Prepregnancy Weight lbs Domestic Partner Domestic Partner Phone Father Name Line Installer Status 09/04/20 20 1 CLOSED Fetus Data First Name Last Name Admitted to NICU Weight (g) Sex Living Outcome Pediatric Complications Fetus ID Race Codes Race Delivery Type M [id number] Vaginal Delivery Navdeep Calculation Initial Navdeep Date Initial Exam Date Initial Exam Provider Initial Ultrasound Date Last Menstrual Period Date Ultra Sound Weeks Gestation 0 Eighteen To Twenty Week Navdeep Update Ultra Sound Date Fundal Height At Umbil Quickening Date Ultra Sound Latest Weeks Gestation Final Navdeep Confirmed By Final Navdeep Confirmed Date Final Navdeep Date Ultra Sound Latest Days Gestation 0 0 Menstrual History Last Menstrual Date Menses Monthly On Bcp Conception Prior Menses Frequency Hcg Plus Date Menarche Onset Age Delivery Information Delivery Date Delivery Type Labor Anesthesia Weeks Gestation Incision Type Labor Labor Length Hrs Delivered By Post Complications Tubal Sterilization Discharge Date Comments 2 32 Discharge Information Feeding Method Contraceptive Method Maternal HG B and HCT Levels
[2025-08-24 15:31] LABS: Troponin I < 0.012 ng/mL (0.000-0.034)
[2025-08-24 15:54] LABS: NT Pro B Type Natriuretic Pept 27 pg/mL (19.9-100)
[2025-08-24 16:20] LABS: Influenza A QL RT-PCR Negative (Negative); Influenza B QL RT-PCR Negative (Negative); RSV RNA, RT-PCR Negative (Negative); SARS-CoV-2 RNA PCR Negative (Negative)
[2025-08-24] MEDS: HYDROcodone/acetaminophen (*CRX) 10-325 MG TABLET 1 TAB PO (18:18)
[2025-08-24 18:19] VITALS: BP 139/84; PULSE 87; RESP 14; O2SAT 99
[2025-08-24] MEDS: BELLADONNA ALK/PHENOB ELIX 10 ML, MAG HYDROX/ALUMINUM HYD/SIMETH 30 ML, LIDOCAINE 2% VI... PO (19:34)
[2025-08-24 22:05] VITALS: BP 128/71; PULSE 78; RESP 18; TEMP 37.1; O2SAT 99
== END 2025-08-24 22:07 | disposition home or self-care (01) ==
PROVIDERS: Emergency Medicine; Emergency Provider Registered Nurse; PCP Family Medicine
DX: I82.402 Acute embolism and thrombosis of unspecified deep veins of left lower extremity (principal); R07.89 Other chest pain; K21.9 Gastro-esophageal reflux disease without esophagitis; E28.2 Polycystic ovarian syndrome; E11.40 Type 2 diabetes mellitus with diabetic neuropathy, unspecified; E78.5 Hyperlipidemia, unspecified; I89.0 Lymphedema, not elsewhere classified; I27.20 Pulmonary hypertension, unspecified; J45.909 Unspecified asthma, uncomplicated; M17.12 Unilateral primary osteoarthritis, left knee; M81.0 Age-related osteoporosis without current pathological fracture; G47.33 Obstructive sleep apnea (adult) (pediatric); F41.9 Anxiety disorder, unspecified; F31.9 Bipolar disorder, unspecified; J81.1 Chronic pulmonary edema; J98.4 Other disorders of lung; R94.31 Abnormal electrocardiogram [ECG] [EKG]; Z79.85 Long-term (current) use of injectable non-insulin antidiabetic drugs; Z79.899 Other long term (current) drug therapy; Z79.84 Long term (current) use of oral hypoglycemic drugs
CPT/HCPCS: 36415; 71046; 71275; 80053; 83605; 83690; 83880; 84484; 85025; 85380; 85610; 85730; 87637; 93005; 93971; 99284; A9270; Q9967